=== PATIENT | male | born 1970 | race Caucasian/White ===

== ENCOUNTER → 2019-01-31 23:40 | Outpatient (CLI) | payer OTHER, SELFPAY ==
[2019-01-31 19:37] VITALS: BMI 30.1
[2019-02-01 00:08] LABS: Absolute Lymphocyte Count 3.53 X10^3/ul (0.83-4.51); Absolute Neutrophil Count 4.8 X10^3/uL (2.0-7.7); Basophil# 0.04 X10^3/uL; Basophil% 0.4 % (0-1); Eosinophil# 0.33 X10^3/uL; Eosinophils% 3.4 % (0-5); Hematocrit 45.5 % (40-54); Hemoglobin 15.7 g/dl (13.0-16.5); Lymphocyte # 3.53 X10^3/ul (4.0); Lymphocyte % 36.8 % (19-41); Mean Corp Hgb Conc 34.5 g/gl (32-36); Mean Corpuscular Hgb 29.3 pg (27.0-32.0); Mean Platelet Vol. 10.2 fl (6.2-12.0); Monocyte% 9.4 % (0-10); Neutrophil # 4.76 X10^3/uL (2.7-7.7); Neutrophil % 49.8 % (47-70); Platelet Count 404 K/mm3 (150-450); RBC Distribution Width CV 12.7 % (11.6-14.6); Red Blood Count 5.35 M/mm3 (4.6-6.2); White Blood Count 9.6 K/mm3 (4.4-11.0)
[2019-02-01 00:09] LABS: POSITIVE COUNT NO; POSITIVE DIFFERENTIAL NO; POSITIVE MORPHOLOGY NO
[2019-02-01 00:25] LABS: ALB/GLOB Ratio 1.3 RATIO (0.9-2.4); AST(SGOT) 33 U/L (15-37); Alanine Aminotransfer ALT/SGPT 51 U/L (16-61); Albumin, Serum 4.6 g/dL (3.2-5.0); Alkaline Phosphatase 61 U/L (45-117); Anion Gap 7 (5-15); BUN 13 mg/dL (7-18); BUN/Creat Ratio 11.8 RATIO (10-20); Calcium,Total 8.9 mg/dL (8.5-10.1); Chloride 102 mmol/L (98-107); Cholesterol 207 mg/dL (200); EST Glomerular Filtration Rate 76 mL/min (>60); Est Glom Filt Rate - Afr Amer 92 mL/min (>60); Globulin 3.5 g/dL (2.2-4.2); Glucose 88 mg/dL (74-106); High Density Lipoprotein 29 mg/dL; Protein, Total 8.1 g/dL (6.4-8.2); Sodium Level 138 mmol/L (136-145); Triglycerides 350 mg/dL; Very Low Density Lipoprotein 70 mg/dL (5-40)
== END ==
PROVIDERS: Visit Provider Nurse Practitioner
DX: I10 Essential (primary) hypertension (principal)
CPT/HCPCS: 80053; 80061; 85025

== ENCOUNTER → 2020-02-06 21:37 | Outpatient (CLI) | payer OTHER, SELFPAY ==
[2020-02-06 18:53] VITALS: BMI 30.2
[2020-02-06 21:49] LABS: Absolute Neutrophil Count 5.1 X10^3/uL (2.0-7.7); Basophil# 0.06 X10^3/uL; Basophil% 0.6 % (0-1); Eosinophil# 0.27 X10^3/uL; Eosinophils% 2.7 % (0-5); Hematocrit 45.1 % (40-54); Hemoglobin 14.9 g/dL (13.0-16.5); Mean Corpuscular Hgb 29.5 pg (27.0-32.0); Mean Corpuscular Volume 89.3 fL (80-94); Mean Platelet Vol. 9.9 fl (6.2-12.0); Monocyte# 0.83 X10^3/uL; Monocyte% 8.3 % (0-10); NRBC Flagged by Analyzer 0 % (0-5); Neutrophil # 5.11 X10^3/uL (2.7-7.7); Neutrophil % 51.2 % (47-70); Platelet Count 478 K/mm3 (150-450); RBC Distribution Width CV 12.5 % (11.6-14.6); RBC Distribution Width SD 41.1 fl (35.1-43.9); Red Blood Count 5.05 M/mm3 (4.6-6.2)
[2020-02-06 22:08] LABS: ALB/GLOB Ratio 1.4 RATIO (0.9-2.4); AST(SGOT) 28 U/L (15-37); Alanine Aminotransfer ALT/SGPT 62 U/L (16-61); Albumin, Serum 4.6 g/dL (3.2-5.0); Alkaline Phosphatase 62 U/L (45-117); Anion Gap 7 (5-15); BUN 11 mg/dL (7-18); BUN/Creat Ratio 9.9 RATIO (10-20); Calcium,Total 9.2 mg/dL (8.5-10.1); Chloride 104 mmol/L (98-107); Cholesterol 208 mg/dL (200); Creatinine, Serum 1.11 mg/dL (0.70-1.30); EST Glomerular Filtration Rate 75 mL/min (>60); Est Glom Filt Rate - Afr Amer 91 mL/min (>60); Globulin 3.4 g/dL (2.2-4.2); Glucose 96 mg/dL (74-106); High Density Lipoprotein 28 mg/dL; Sodium Level 139 mmol/L (136-145); Triglycerides 316 mg/dL; Very Low Density Lipoprotein 63 mg/dL (5-40)
== END ==
PROVIDERS: Visit Provider Nurse Practitioner
DX: I10 Essential (primary) hypertension (principal); E78.1 Pure hyperglyceridemia
CPT/HCPCS: 80053; 80061; 85025

== ENCOUNTER → 2021-02-03 22:07 | Outpatient (CLI) | payer OTHER, SELFPAY ==
[2021-02-03 17:37] VITALS: BMI 30.5
[2021-02-03 22:15] LABS: Absolute Lymphocyte Count 3.21 X10^3/uL (0.83-4.51); Absolute Neutrophil Count 5.8 X10^3/uL (2.0-7.7); Basophil# 0.09 X10^3/uL; Basophil% 0.9 % (0-1); Eosinophil# 0.41 X10^3/uL; Eosinophils% 3.9 % (0-5); Hematocrit 43.5 % (40-54); Hemoglobin 14.3 g/dL (13.0-16.5); Lymphocyte # 3.21 X10^3/ul (0.83-4.51); Lymphocyte % 30.9 % (19-41); Mean Corp Hgb Conc 32.9 g/dL (32-36); Mean Corpuscular Volume 88.2 fL (80-94); Monocyte# 0.84 X10^3/uL; Monocyte% 8.1 % (0-10); NRBC Flagged by Analyzer 0 % (0-5); Neutrophil # 5.81 X10^3/uL (2.7-7.7); Neutrophil % 55.9 % (47-70); Platelet Count 484 K/mm3 (150-450); RBC Distribution Width CV 12.7 % (11.6-14.6); RBC Distribution Width SD 41.3 fl (35.1-43.9); Red Blood Count 4.93 M/mm3 (4.6-6.2); White Blood Count 10.4 K/mm3 (4.4-11.0)
[2021-02-03 22:40] LABS: ALB/GLOB Ratio 1.2 RATIO (0.9-2.4); AST(SGOT) 31 U/L (15-37); Alanine Aminotransfer ALT/SGPT 41 U/L (16-61); Albumin, Serum 4.3 g/dL (3.2-5.0); Alkaline Phosphatase 68 U/L (45-117); Anion Gap 8 (5-15); BUN 16 mg/dL (7-18); BUN/Creat Ratio 13.9 RATIO (10-20); Chloride 104 mmol/L (98-107); Cholesterol 183 mg/dL (200); Creatinine, Serum 1.15 mg/dL (0.70-1.30); EST Glomerular Filtration Rate 72 mL/min (>60); Est Glom Filt Rate - Afr Amer 87 mL/min (>60); Globulin 3.6 g/dL (2.2-4.2); Glucose 85 mg/dL (74-106); High Density Lipoprotein 29 mg/dL; Protein, Total 7.9 g/dL (6.4-8.2); Sodium Level 139 mmol/L (136-145); Triglycerides 274 mg/dL; Very Low Density Lipoprotein 55 mg/dL (5-40)
== END ==
PROVIDERS: PCP Nurse Practitioner; Referring Provider Nurse Practitioner; Visit Provider Nurse Practitioner
DX: E78.1 Pure hyperglyceridemia (principal); I10 Essential (primary) hypertension
CPT/HCPCS: 80053; 80061; 85025

== ENCOUNTER → 2022-01-26 | Outpatient (CLI) | payer OTHER, SELFPAY ==
[2022-01-26 22:19] LABS: Absolute Lymphocyte Count 2.81 X10^3/uL (0.83-4.51); Absolute Neutrophil Count 4.5 X10^3/uL (2.0-7.7); Basophil# 0.04 X10^3/uL; Basophil% 0.5 % (0-1); Eosinophil# 0.28 X10^3/uL; Eosinophils% 3.3 % (0-5); Hematocrit 43.5 % (40-54); Lymphocyte # 2.81 X10^3/ul (0.83-4.51); Lymphocyte % 33.6 % (19-41); Mean Corp Hgb Conc 34.5 g/dL (32-36); Mean Corpuscular Hgb 29.8 pg (27.0-32.0); Mean Corpuscular Volume 86.5 fL (80-94); Mean Platelet Vol. 10.1 fl (6.2-12.0); Monocyte# 0.68 X10^3/uL; Monocyte% 8.1 % (0-10); NRBC Flagged by Analyzer 0 % (0-5); Neutrophil # 4.53 X10^3/uL (2.7-7.7); Neutrophil % 54.1 % (47-70); Platelet Count 403 K/mm3 (150-450); RBC Distribution Width CV 12.4 % (11.6-14.6); RBC Distribution Width SD 38.9 fl (35.1-43.9); Red Blood Count 5.03 M/mm3 (4.6-6.2); White Blood Count 8.4 K/mm3 (4.4-11.0)
[2022-01-26 22:34] LABS: ALB/GLOB Ratio 1.2 RATIO (0.9-2.4); AST(SGOT) 27 U/L (15-37); Alanine Aminotransfer ALT/SGPT 48 U/L (16-61); Albumin, Serum 4.3 g/dL (3.2-5.0); Alkaline Phosphatase 53 U/L (45-117); Anion Gap 7 (5-15); BUN 9 mg/dL (7-18); BUN/Creat Ratio 8.4 RATIO (10-20); Chloride 107 mmol/L (98-107); Cholesterol 196 mg/dL (200); Creatinine, Serum 1.07 mg/dL (0.70-1.30); EST Glomerular Filtration Rate 78 mL/min (>60); Est Glom Filt Rate - Afr Amer 94 mL/min (>60); Globulin 3.5 g/dL (2.2-4.2); Glucose 96 mg/dL (74-106); High Density Lipoprotein 32 mg/dL; Potassium 3.8 mmol/L (3.5-5.1); Protein, Total 7.8 g/dL (6.4-8.2); Sodium Level 138 mmol/L (136-145); Triglycerides 179 mg/dL; Very Low Density Lipoprotein 36 mg/dL (5-40)
== END | disposition home or self-care (01) ==
PROVIDERS: PCP Nurse Practitioner; Referring Provider Nurse Practitioner; Visit Provider Nurse Practitioner
DX: E78.1 Pure hyperglyceridemia (principal)
CPT/HCPCS: 80053; 80061; 85025

== ENCOUNTER → 2023-04-12 | Outpatient (CLI) | payer OTHER, SELFPAY ==
[2023-04-12 21:06] LABS: Absolute Lymphocyte Count 2.87 X10^3/uL (0.83-4.51); Absolute Neutrophil Count 5.1 X10^3/uL (2.0-7.7); Basophil# 0.04 X10^3/uL; Basophil% 0.4 % (0-1); Eosinophil# 0.41 X10^3/uL; Eosinophils% 4.5 % (0-5); Hematocrit 43.9 % (40-54); Hemoglobin 14.8 g/dL (13.0-16.5); Lymphocyte # 2.87 X10^3/ul (0.83-4.51); Lymphocyte % 31.7 % (19-41); Mean Corp Hgb Conc 33.7 g/dL (32-36); Mean Corpuscular Hgb 29.7 pg (27.0-32.0); Mean Platelet Vol. 9.8 fl (6.2-12.0); Monocyte# 0.65 X10^3/uL; Monocyte% 7.2 % (0-10); NRBC Flagged by Analyzer 0 % (0-5); Neutrophil # 5.05 X10^3/uL (2.7-7.7); Platelet Count 393 K/mm3 (150-450); RBC Distribution Width CV 12.2 % (11.6-14.6); RBC Distribution Width SD 39.1 fl (35.1-43.9); Red Blood Count 4.99 M/mm3 (4.6-6.2)
[2023-04-12 21:32] LABS: ALB/GLOB Ratio 1.2 RATIO (0.9-2.4); AST(SGOT) 21 U/L (15-37); Alanine Aminotransfer ALT/SGPT 38 U/L (16-61); Albumin, Serum 4.2 g/dL (3.2-5.0); Alkaline Phosphatase 51 U/L (45-117); Anion Gap 6 (5-15); BUN 11 mg/dL (7-18); BUN/Creat Ratio 11.6 RATIO (10-20); CRP, High Sensitivity Cardiac 0.31 mg/L; Calcium,Total 8.8 mg/dL (8.5-10.1); Chloride 105 mmol/L (98-107); Cholesterol 90 mg/dL (200); Creatinine, Serum 0.94 mg/dL (0.70-1.30); EST Glomerular Filtration Rate 89 mL/min (>60); Est Glom Filt Rate - Afr Amer 108 mL/min (>60); Globulin 3.4 g/dL (2.2-4.2); Glucose 104 mg/dL (74-106); High Density Lipoprotein 33 mg/dL; PSA,Total - Annual Screen 0.87 ng/mL (0.00-4.00); Potassium 3.7 mmol/L (3.5-5.1); Protein, Total 7.6 g/dL (6.4-8.2); Sodium Level 137 mmol/L (136-145); Thyroid Stim Hormone (TSH) 2.36 uIU/mL (0.358-3.74); Triglycerides 107 mg/dL; Very Low Density Lipoprotein 21 mg/dL (5-40)
== END | disposition home or self-care (01) ==
PROVIDERS: PCP Nurse Practitioner; Visit Provider Nurse Practitioner
DX: I63.9 Cerebral infarction, unspecified (principal); E78.1 Pure hyperglyceridemia; I10 Essential (primary) hypertension
CPT/HCPCS: 80053; 80061; 84153; 84443; 85025; 86141; G0103

== ENCOUNTER → 2024-06-04 | Outpatient (CLI) | payer OTHER, SELFPAY ==
[2024-06-04 21:48] LABS: Absolute Lymphocyte Count 3.06 X10^3/uL (0.83-4.51); Absolute Neutrophil Count 4.8 X10^3/uL (2.0-7.7); Basophil# 0.07 X10^3/uL; Basophil% 0.8 % (0-1); Eosinophil# 0.53 X10^3/uL; Eosinophils% 5.8 % (0-5); Hematocrit 45.2 % (40-54); Hemoglobin 15.1 g/dL (13.0-16.5); Lymphocyte # 3.06 X10^3/ul (0.83-4.51); Lymphocyte % 33.3 % (19-41); Mean Corp Hgb Conc 33.4 g/dL (32-36); Mean Corpuscular Hgb 29.1 pg (27.0-32.0); Mean Corpuscular Volume 87.1 fL (80-94); Mean Platelet Vol. 10.2 fl (6.2-12.0); Monocyte# 0.69 X10^3/uL; Monocyte% 7.5 % (0-10); NRBC Flagged by Analyzer 0 % (0-5); Neutrophil # 4.79 X10^3/uL (2.7-7.7); Neutrophil % 52.1 % (47-70); Platelet Count 386 K/mm3 (150-450); RBC Distribution Width CV 12.5 % (11.6-14.6); RBC Distribution Width SD 39.8 fl (35.1-43.9); Red Blood Count 5.19 M/mm3 (4.6-6.2); White Blood Count 9.2 K/mm3 (4.4-11.0)
[2024-06-04 22:16] LABS: ALB/GLOB Ratio 1.4 RATIO (0.9-2.4); AST(SGOT) 20 U/L (15-37); Alanine Aminotransfer ALT/SGPT 37 U/L (16-61); Albumin, Serum 4.2 g/dL (3.2-5.0); Alkaline Phosphatase 56 U/L (45-117); Anion Gap 10 (5-15); BUN 11 mg/dL (7-18); BUN/Creat Ratio 10.9 RATIO (10-20); Calcium,Total 9.1 mg/dL (8.5-10.1); Chloride 105 mmol/L (98-107); Cholesterol 225 mg/dL (200); Creatinine, Serum 1.01 mg/dL (0.70-1.30); EST Glomerular Filtration Rate 82 mL/min (>60); Est Glom Filt Rate - Afr Amer 100 mL/min (>60); Globulin 3.1 g/dL (2.2-4.2); Glucose 119 mg/dL (74-106); High Density Lipoprotein 40 mg/dL; PSA,Total - Annual Screen 1.03 ng/mL (0.00-4.00); Potassium 3.8 mmol/L (3.5-5.1); Protein, Total 7.3 g/dL (6.4-8.2); Sodium Level 138 mmol/L (136-145); Triglycerides 197 mg/dL; Very Low Density Lipoprotein 39 mg/dL (5-40)
== END | disposition home or self-care (01) ==
PROVIDERS: PCP Nurse Practitioner; Referring Provider Nurse Practitioner; Visit Provider Nurse Practitioner
DX: Z00.00 Encounter for general adult medical examination without abnormal findings (principal)
CPT/HCPCS: 80053; 80061; 84153; 85025; G0103

== ENCOUNTER → 2025-05-21 | Outpatient (CLI) | payer OTHER, SELFPAY ==
--- OUTSIDE RECORDS SUMMARY | 2025-05-21 21:54 | XMS RPT_ITS | CCD ---
Author Organization [facility] Care Team Providers Care Batch Or Continuous Still Operator Name Role Phone Moisés WEDDING COORDINATOR.Marianne VALADEZ Primary Care Provide r Lissa Mirza DO Unavailable [phone] Moisés WEDDING COORDINATOR.Marianne VALADEZ Unavailable [phone] Victoria Piedra RN Unavailable MARIANNE CURIEL Primary Care Unavailable JORDI FITZGERALD Consulting Unavailabl e LISSA MIRZA Attending Unavailable LISSA MIRZA Admitting Unavailable Knupp PT, Ellis Unavailable Knupp PT, Ellis Unavailable MARIANNE CURIEL Primary Care Unavailable RENY MATOS Attending Unavailable CAROLYN MARTINO Referring Unavailable Marianne Curiel Primary Care Provider [phone] NICANOR PENNINGTON Referring Unavailable NICANOR PENNINGTON Attending Unavailable MARIANNE CURIEL Primary Care Unavailable TED WEBSTER, OLIVIA Attending Unavail able MARIANNE CURIEL Primary Care Unavailable Moisés INTEGRITY MANAGER, Marianne Referring Unavailable Moisés INTEGRITY MANAGER, Marianne Attending Unavailable Moisés INTEGRITY MANAGER, Marianne Primary Care Unavailable Medications Current Medications Medication Drug Class(es) Dates Sig (Normalized) Sig (Original) aspirin 81 mg delayed release oral tablet (19 sources) Platelet Aggregation Inhibitor, Nonsteroidal Anti-inflammatory Drug Start: 04-12-2023 take 81 mg by mouth once daily Aspirin Active 81 MG PO DAILY April 12, 2023 12:00am Start: 03-07-2023 take 1 tablet by miryam th once daily aspirin 81 mg chewable tablet 1 tablet by ORAL/FEEDING TUBE route once daily. 30 tablet 0 03/07/2023 Active Start: 03-07-2023 take 1 tablet by miryam th once daily aspirin 81 mg chewable tablet 1 tablet by ORAL/FEEDING TUBE route once daily. 30 tablet 0 03/07/2023 Active Comment on above: 1 tablet by ORAL/FEE DING TUBE route once daily. clopidogrel 75 mg oral tablet (16 sources) P2Y12 Platelet Inhibitor Start: 023 End: take 75 mg by mouth once daily Clopidogrel Active 75 MG PO DAILY April 12, 2023 12:00am Comment on above: Take 1 tablet by miryam th once daily for 20 doses. hydroCHLOROthiazide 12.5 mg / lisinopril 20 mg oral tablet (20 sources) Thiazide Diuretic, Angiotensin Converting Enzyme Inhibitor Start: 018 End: take 1 tablet by mouth once daily Lisinopril-Hydroch lorothiazide Active 1 TABLET PO daily 90 April 12, 2023 6:57pm Start: 06-15-2015 take 1 tablet by miryam th once daily lisinopril-hydroCHLOROthiazide (ZESTORET IC) 20-12.5 mg per tablet Take 1 tablet by mouth once daily. 0 06/15/2015 Active Comment on above: Take 1 tablet by miryam th once daily. Wapiti-3 Fatty Acids (Fish Oil Concentrate) 1,000 mg capsule (1 source) Start: 02-01-2018 Wapiti-3 Fatty Acids (Fish Oil Concentrate) 1,000 mg capsule Active 2000 MG PO daily February 01, 2018 12:00am Completed/Discontinued Medications Medication Drug Class(es) Dates Sig (Normalized) Sig (Original) atorvastatin 40 mg oral tablet (19 sources) HMG-CoA Reductase Inhibitor Start: 03-06-2023 take 1 tablet by mouth once daily at bedtime atorvastatin (LIPITOR) 40 mg tablet Take 1 tablet by mouth daily at bedtime. 30 tablet 0 03/06/2023 Active Comment on above: Take 1 tablet by miryam th daily at bedtime. Problems Active Problems Problem Classification Problem Date Documented Date Episodic/Chronic Acute cerebrovascular disease (20 sources) Acute stroke; Translations: [Cerebral infarction, unspecified] Onset: 03-05-2023 03-05-2023 Chronic Cardiac dysrhythmias (19 sources) Paroxysmal supraventricular tachycardia; Translations: [Supraventricular tachycardia] Onset: 03-05-2023 03-05-2023 Chronic Disorders of lipid metabolism (1 source) Hypertriglyceridemia; Translations: [Pure hyperglyceridemia] 02-01-2018 Chronic Essential hypertension (20 sources) Hypertensive disorder; Translations: [Essential (primary) hypertension] Onset: 03-05-2023 03-05-2023 Chronic Malaise and fatigue (1 source) Weakness; Translations: [Right sided weakness] Onset: 03-05-2023 Episodic Other connective tissue disease (1 source) Facial weakness; Translations: [Facial droop] Onset: 03-05-2023 Episodic Other nervous system disorders (1 source) Slurred speech; Translations: [Slurred speech] Onset: 03-05-2023 Episodic Past or Other Problems Problem Classification Problem Date Documented Date Episodic/Chronic Other non-traumatic joint disorders (5 sources) Pain in right shoulder; Translations: [Pain in joint, shoulder region] Onset: 06-26-2023 06-26-2023 Episodic Spondylosis; intervertebral disc disorders; other back problems (5 sources) Neck pain; Translations: [Cervicalgia] Onset: 06-26-2023 06-26-2023 Episodic Spondylosis; intervertebral disc disorders; other back problems (1 source) Spondylosis; intervertebral disc disorders; other back problems 03-25-2022 Results Test Name Value Interpretation Reference Range Facility CBC W/Diff, Automatedon 10-0 Absolute Lymph 3.06 X10 3/uL Normal 0.83-4.51 [facility] Comment on above: Performed By: #### L 501.9910, L500.4050, L500.4100, L100.0100 #### [facility] [address] [place], [address] Absolute Neut 4.8 X10 3/uL Normal 2.0-7.7 [facility] Comment on above: Performed By: #### L 501.9910, L500.4050, L500.4100, L100.0100 #### [facility] [address] [place], [address] Basophils/100 WBC (Bld) 0.8 % Normal 0-1 [facility] Comment on above: Performed By: #### L 501.9910, L500.4050, L500.4100, L100.0100 #### [facility] [address] [place], [address] Eosinophils/100 WBC (Bld) 5.8 % High 0-5 [facility] Comment on above: Performed By: #### L 501.9910, L500.4050, L500.4100, L100.0100 #### [facility] [address] [place], [address] Erythrocyte distribution width (RBC) [Ratio] 12.5 % Normal 11.6-14.6 [facility] Comment on above: Performed By: #### L 501.9910, L500.4050, L500.4100, L100.0100 #### [facility] [address] [place], [address] Hematocrit (Bld) [Volume fraction] 45.2 % Normal 40-54 [facility] Comment on above: Performed By: #### L 501.9910, L500.4050, L500.4100, L100.0100 #### [facility] [address] [place], [address] Hemoglobin (Bld) [Mass/Vol] 15.1 g/dL Normal 13.0-16.5 [facility] Comment on above: Performed By: #### L 501.9910, L500.4050, L500.4100, L100.0100 #### [facility] [address] [place], [address] IG% 0.500 Normal 0.0-0.9 [facility] Comment on above: Result Comment: IG% - Immature Granulocytes (promyelocytes, myelocytes and metamyelocytes) > 1% indicates that a LEFT SHIFT is Present. Performed By: #### L 501.9910, L500.4050, L500.4100, L100.0100 #### [facility] [address] [place], [address] Lymphocytes/100 WBC (Bld) 33.3 % Normal 19-41 [facility] Comment on above: Performed By: #### L 501.9910, L500.4050, L500.4100, L100.0100 #### [facility] [address] [place], [address] MCH (RBC) [Entitic mass] 29.1 pg Normal 27.0-32.0 [facility] Comment on above: Performed By: #### L 501.9910, L500.4050, L500.4100, L100.0100 #### [facility] [address] [place], [address] MCHC (RBC) [Mass/Vol] 33.4 g/dL Normal 32-36 [facility] Comment on above: Performed By: #### L 501.9910, L500.4050, L500.4100, L100.0100 #### [facility] [address] [place], [address] MCV (RBC) [Entitic vol] 87.1 fL Normal 80-94 [facility] Comment on above: Performed By: #### L 501.9910, L500.4050, L500.4100, L100.0100 #### [facility] [address] [place], [address] Monocytes/100 WBC (Bld) 7.5 % Normal 0-10 [facility] Comment on above: Performed By: #### L 501.9910, L500.4050, L500.4100, L100.0100 #### [facility] [address] [place], [address] Neutrophils/100 WBC (Bld) 52.1 % Normal 47-70 [facility] Comment on above: Performed By: #### L 501.9910, L500.4050, L500.4100, L100.0100 #### [facility] [address] [place], [address] Nucleated RBC (Bld) [#/Vol] 0 10*3/uL Normal 0-5 [facility] Comment on above: Performed By: #### L 501.9910, L500.4050, L500.4100, L100.0100 #### [facility] [address] [place], [address] Platelet mean volume (Bld) [Entitic vol] 10.2 fL Normal 6.2-12.0 [facility] Comment on above: Performed By: #### L 501.9910, L500.4050, L500.4100, L100.0100 #### [facility] [address] [place], [address] Platelets (Bld) [#/Vol] 386 10*3/uL Normal 150-450 [facility] Comment on above: Performed By: #### L 501.9910, L500.4050, L500.4100, L100.0100 #### [facility] [address] [place], [address] RBC (Bld) [#/Vol] 5.19 10*6/uL Normal 4.6-6.2 [facility] Comment on above: Performed By: #### L 501.9910, L500.4050, L500.4100, L100.0100 #### [facility] [address] [place], [address] RDW SD 39.8 fl Normal 35.1-43.9 [facility] Comment on above: Performed By: #### L 501.9910, L500.4050, L500.4100, L100.0100 #### [facility] [address] [place], [address] WBC (Bld) [#/Vol] 9.2 10*3/uL Normal 4.4-11.0 [facility] Comment on above: Performed By: #### L 501.9910, L500.4050, L500.4100, L100.0100 #### [facility] [address], [address] Comprehensive Metabolic Prof ilon 06-04-2024 Albumin [Mass/Vol] 4.2 g/dL Normal 3.2-5.0 [facility] Comment on above: Performed By: #### L 501.9910, L500.4050, L500.4100, L100.0100 #### [facility] [address] [place], [address] Albumin/Globulin [Mass ratio] 1.4 {ratio} Normal 0.9-2.4 [facility] Comment on above: Performed By: #### L 501.9910, L500.4050, L500.4100, L100.0100 #### [facility] [address] [place], [address] ALK P 56 U/L Normal 45-117 [facility] Comment on above: Performed By: #### L 501.9910, L500.4050, L500.4100, L100.0100 #### [facility] [address] [place], [address] ALT [Catalytic activity/Vol] 37 U/L Normal 16-61 [facility] Comment on above: Performed By: #### L 501.9910, L500.4050, L500.4100, L100.0100 #### [facility] [address] [place], [address] AST [Catalytic activity/Vol] 20 U/L Normal 15-37 [facility] Comment on above: Performed By: #### L 501.9910, L500.4050, L500.4100, L100.0100 #### [facility] [address] [place], [address] Bilirubin [Mass/Vol] 0.50 mg/dL Normal 0.20-1.00 [facility] Comment on above: Result Comment: For patients on eltrombopag therapy, use of Dimension [place] TBIL is not recommended. Performed By: #### L 501.9910, L500.4050, L500.4100, L100.0100 #### [facility] [address], [address] BUN/CRE 10.9 RATIO Normal 10-20 [facility] Comment on above: Performed By: #### L 501.9910, L500.4050, L500.4100, L100.0100 #### [facility] [address] [place], [address] CA,Total 9.1 mg/dL Normal 8.5-10.1 [facility] Comment on above: Performed By: #### L 501.9910, L500.4050, L500.4100, L100.0100 #### [facility] [address] [place], [address] Chloride [Moles/Vol] 105 mmol/L Normal 98-107 [facility] Comment on above: Performed By: #### L 501.9910, L500.4050, L500.4100, L100.0100 #### [facility] [address], [address] CO2 [Moles/Vol] 23.0 mmol/L Normal 21.0-32.0 [facility] Comment on above: Performed By: #### L 501.9910, L500.4050, L500.4100, L100.0100 #### [facility] [address] [place], [address] Creatinine [Mass/Vol] 1.01 mg/dL Normal 0.70-1.30 [facility] Comment on above: Result Comment: The validity of the calculated GFR GFRAA in patients over 70 years has not been determined. Clinical correlation is essential. Performed By: #### L 501.9910, L500.4050, L500.4100, L100.0100 #### [facility] [address] [place], [address] EST GFR - AA 100 mL/min Normal >60 [facility] Comment on above: Result Comment: Afri can Guamanian GFR Calc Performed By: #### L 501.9910, L500.4050, L500.4100, L100.0100 #### [facility] [address] [place], [address] GAP 10 Normal 5-15 [facility] Comment on above: Performed By: #### L 501.9910, L500.4050, L500.4100, L100.0100 #### [facility] [address] [place], [address] GFR/1.73 sq M.predicted among non-blacks MDRD (S/P/Bld) [Vol rate/Area] 82 mL/min/{1.73_m2} Normal >60 [facility] Comment on above: Result Comment: Non- GFR Calc Performed By: #### L 501.9910, L500.4050, L500.4100, L100.0100 #### [facility] [address] [place], [address] Globulin (S) [Mass/Vol] 3.1 g/dL Normal 2.2-4.2 [facility] Comment on above: Performed By: #### L 501.9910, L500.4050, L500.4100, L100.0100 #### [facility] [address] [place], [address] Glucose [Mass/Vol] 119 mg/dL High 74-106 [facility] Comment on above: Result Comment: Fast ing Glucose result from 100 to 125 mg/dL suggests IMPAIRED HOMEOSTASIS per A.D.A. criteria. Performed By: #### L 501.9910, L500.4050, L500.4100, L100.0100 #### [facility] [address] [place], [address] Potassium [Moles/Vol] 3.8 mmol/L Normal 3.5-5.1 [facility] Comment on above: Performed By: #### L 501.9910, L500.4050, L500.4100, L100.0100 #### [facility] [address] [place], [address] Sodium [Moles/Vol] 138 mmol/L Normal 136-145 [facility] Comment on above: Performed By: #### L 501.9910, L500.4050, L500.4100, L100.0100 #### [facility] [address] [place], [address] T PROT 7.3 g/dL Normal 6.4-8.2 [facility] Comment on above: Performed By: #### L 501.9910, L500.4050, L500.4100, L100.0100 #### [facility] [address] [place], [address] Urea nitrogen [Mass/Vol] 11 mg/dL Normal 7-18 [facility] Comment on above: Performed By: #### L 501.9910, L500.4050, L500.4100, L100.0100 #### [facility] [address] [place], [address] Lipid Profileon 06-04-2024 Cholesterol [Mass/Vol] 225 mg/dL High 200 [facility] Comment on above: Result Comment: <200 mg/dL Desirable 200-240 mg/dL Borderline >240 mg/dL High Risk Performed By: #### L 501.9910, L500.4050, L500.4100, L100.0100 #### [facility] [address] [place], [address] Cholesterol in HDL [Mass/Vol] 40 mg/dL Normal [facility] Comment on above: Result Comment: The drugs N-Acetylcysteine and Metamizole may falsely depress this assay. Reference Range HDL <40 mg/dL Low HDL Cholesterol HDL >or= 60 mg/dL High HDL Cholesterol Performed By: #### L 501.9910, L500.4050, L500.4100, L100.0100 #### [facility] [address] [place], [address] Cholesterol in LDL [Mass/Vol] 146 mg/dL High 0-130 [facility] Comment on above: Performed By: #### L 501.9910, L500.4050, L500.4100, L100.0100 #### [facility] [address] [place], [address] Cholesterol in VLDL [Mass/Vol] 39 mg/dL Normal 5-40 [facility] Comment on above: Performed By: #### L 501.9910, L500.4050, L500.4100, L100.0100 #### [facility] [address] [place], [address] Triglyceride [Mass/Vol] 197 mg/dL Normal [facility] Comment on above: Result Comment: The drugs N-Acetylcysteine and Metamizole may falsely depress this assay. Serum Triglycerides Reference Interval Normal <150 mg/dL Borderline high 150 - 199 mg/dL High 200 - 499 mg/dL Very High > or = 500 mg/dL Performed By: #### L 501.9910, L500.4050, L500.4100, L100.0100 #### [facility] [address] [place], [address] PSA,Total - Annual Screenon 06-04-2024 PSA,TOT SCREEN 1.03 ng/mL Normal 0.00-4.00 [facility] Comment on above: Result Comment: This test was performed using the TPSA assay method for the [employer] chemistry system. Values obtained with different assay methods cannot be used interchangably. When changing PSA assays in the course of monitoring a patient, additional sequential testing should be carried out to confirm baseline values. Performed By: #### L 501.9910, L500.4050, L500.4100, L100.0100 #### [facility] [address] [place], [address] Phone Msgon 05-24-2024 Phone Msg Entered by ANDREIA ANDINO CNP on May 24, 2024 16:08:10 EDT From: ANDREIA ANDINO CNP To: [id number] Sent: 05/24/2024 16:08:10 EDT Subject: Medication Management Documented Complete:atorvastatin (atorvastatin 40 mg oral tablet) Responsible Provider: Lissa Mirza Signed by ANDREIA ANDINO CNP 05/24/2024 16:08:00 EDT Submitted: Complete:atorvastatin (atorvastatin 40 mg oral tablet) Signed by ANDREIA ANDINO CNP 05/24/2024 16:08:00 EDT Approved atorvastatin (atorvastatin 40 mg tablet) TAKE 1 TABLET BY MOUTH ONCE DAILY Qty: 90 tabs Days Supply: 90 Refills: 2 Substitutions Allowed Route To Pharmacy - [id number] Note from Pharmacy: This prescription was filled on 02/29/2024. Any refills authorized will be placed on file. From: [id number] To: ANDREIA ANDINO CNP Sent: May 19, 2024 8:02:16 AM EDT Subject: Medication Management Due: May 19, 2024 11:36:16 AM EDT On Hold Pending Signature Drug: atorvastatin (atorvastatin 40 mg oral tablet), TAKE 1 TABLET BY MOUTH ONCE DAILY Quantity: 90 tabs Days Supply: 90 Refills: 1 Substitutions Allowed Notes from Pharmacy: Dispensed Drug: atorvastatin (atorvastatin 40 mg oral tablet), TAKE 1 TABLET BY MOUTH ONCE DAILY Quantity: 90 tabs Days Supply: 90 Refills: 2 Substitutions Allowed Notes from Pharmacy: This prescription was filled on 02/29/2024. Any refills authorized will be placed on file. Normal [facility] XR Cervical spine 4 or 5 Vie wson 06-27-2023 No acute fracture or traumatic subluxation identified. Spondylosis and spondylolisthesis at C6-C7. Report Dictated on Electronically Signed By: Chago Joshua MD Electronically Signed Date/Time: 06/27/2023 1:57 AM EDT [facility] Patient Name: IRON CONDE : 1970 Exam Date/Time: 06/26/2023 11:25 Procedure: XR CERVICAL SPINE COMPLETE 4-5 VIEWS Ordering Provider: PENNINGTON MARK Reason For Exam: M54.2 EXAMINATION: XR cervical spine. EXAM DATE & TIME: 06/26/2023 11:25 AM EDT INDICATION: M54.2 ADDITIONAL INFORMATION: 53-year-old male with cervicalgia presents for evaluation COMPARISON: None TECHNIQUE: AP, oblique, lateral and odontoid views of the cervical spine were obtained. FINDINGS: No acute fracture or traumatic subluxation is identified. Normal vertebral body height is seen. There is grade 1 retrolisthesis of C6 on C7. Degenerative disc disease is also seen as well as degenerative endplate spurring at C6-C7. Odontoid view is unremarkable. No focal soft tissue abnormality is demonstrated. [facility] [email or web address] [facility] hCago Joshua MD - 06/27/2023 Patient Name: IRON CONDE : 1970 Exam Date/Time: 06/26/2023 11:25 Procedure: XR CERVICAL SPINE COMPLETE 4-5 VIEWS Ordering Provider: PENNINGTON MARK Reason For Exam: M54.2 EXAMINATION: XR cervical spine. EXAM DATE & TIME: 06/26/2023 11:25 AM EDT INDICATION: M54.2 ADDITIONAL INFORMATION: 53-year-old male with cervicalgia presents for evaluation COMPARISON: None TECHNIQUE: AP, oblique, lateral and odontoid views of the cervical spine were obtained. FINDINGS: No acute fracture or traumatic subluxation is identified. Normal vertebral body height is seen. There is grade 1 retrolisthesis of C6 on C7. Degenerative disc disease is also seen as well as degenerative endplate spurring at C6-C7. Odontoid view is unremarkable. No focal soft tissue abnormality is demonstrated. IMPRESSION: No acute fracture or traumatic subluxation identified. Spondylosis and spondylolisthesis at C6-C7. Report Dictated on Electronically Signed By: Chago Joshua MD Electronically Signed Date/Time: 06/27/2023 1:57 AM EDT [facility] XR Cervical spine 4 or 5 Vie wsOrdered By: Chago Joshua on 06-27-2023 [facility] Work Phone: No Panel Informationon 06-26 Radiology Study observation (narrative) [facility] XR Shoulder - right 2 Viewso n 06-26-2023 No fracture or dislocation of the right shoulder is identified. Mild degenerative changes of the right acromioclavicular and glenohumeral joints. Report Dictated on Electronically Signed By: Yaya Stein MD Electronically Signed Date/Time: 06/26/2023 6:04 PM EDT [facility] Patient Name: IRON CONDE : 1970 Exam Date/Time: 06/26/2023 11:25 Procedure: XR SHOULDER 2+ VIEWS RIGHT Ordering Provider: PENNINGTON MARK Reason For Exam: Right shoulder pain RIGHT SHOULDER CLINICAL INDICATION: Pain Three views of the right shoulder were obtained. COMPARISON: None. FINDINGS: No fracture or dislocation of the right shoulder is identified. There is no abnormal soft tissue swelling. There is degenerative spurring and loss of joint space at the right acromioclavicular and glenohumeral joints. [facility] Yaya Stein MD - 06/26/2023 [facility]ON [facility] : 1970 [id number] Exam Date/Time: 06/26/2023 11:25 Procedure: XR SHOULDER 2+ VIEWS RIGHT Ordering Provider: PENNINGTON MARK Reason For Exam: Right shoulder pain RIGHT SHOULDER CLINICAL INDICATION: Pain Three views of the right shoulder were obtained. COMPARISON: None. FINDINGS: No fracture or dislocation of the right shoulder is identified. There is no abnormal soft tissue swelling. There is degenerative spurring and loss of joint space at the right acromioclavicular and glenohumeral joints. IMPRESSION: No fracture or dislocation of the right shoulder is identified. Mild degenerative changes of the right acromioclavicular and glenohumeral joints. Report Dictated on Electronically Signed By: Yaya Stein MD Electronically Signed Date/Time: 06/26/2023 6:04 PM EDT [facility] XR Shoulder - right 2 ViewsO rdered By: Yaya Stein on 06-26-2023 [employer] Work Phone: [facility] 05-01-2023 [facility] Telephone ([id number]) IRON CONDE ([id number]) 1970 M Date Time Provider Department 05/01/23 RENY MATOS [id number] During your visit today, we recorded the following information about you: Pastora Trinidad 05/01/2023 9:59 AM Signed CV PHONE Name of caller : Pastora Relationship to patient : Spouse/ SignificantOther If not self Will need patient permission to release results or disclose health information with called documented in fyi. Patient identified by Name and Date of . ( Iron Conde, 1970). Yes Number to return call [phone] Reason for Call: Symptoms Call: Symptoms: Swelling and pain in hand, arm and shoulder. Right side Duration: >48 hours Progression: worse Pain level: NA on a scale of 0-10. Type of pain (feels like): NA Frequency: constant Location of pain: Right hand, arm, shoulder swelling and pain. Pharmacy: [facility] [place] [facility] Iron has had the swelling for a couple months, but it seems to be getting worse and now having pain in his shoulder on the right side. Thank you calling [facility] [place]. You will receive a return call within 48 hours ( or 2 business days if close to the weekend). If you feel that this is an urgent issue and needs immediate attention, it is recommended that you contact your primary care provider office or proceed to your nearest Urgent Care Center of Emergency Room ED for evaluation/treatment. Lesley Bolivar RN 05/04/2023 4:06 PM Signed RN attempted to call patient with provided phone number ([phone]) no answer, left voicemail, will attempt to call again Lesley Bolivar RN May 02, 2023 2:56 PM Nathalia Bell 05/03/2023 11:20 AM Signed , Genna is returning call - she is asking if Iron can take Ibuprofen for the pain. Please call Genna at [phone]. Lesley Bolivar RN 05/04/2023 4:07 PM Signed RN called patient with provided phone number. 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 Patient verbalized understanding and willing to comply with plan of care. Patient had no other questions at this time Lesley Bolivar RN May 04, 2023 4:07 PM Allergies As of Date: 05/01/2023 (No Known Allergies) Date Reviewed: 04/14/2023 Reviewed by: Marcela Butts MA - Fully Assessed Reason for Visit: Symptoms [3640] Prescriptions as of 05/11/2023 - aspirin 81 mg chewable tablet 1 tablet by ORAL/FEEDING TUBE route once daily. - atorvastatin (LIPITOR) 40 mg tablet Take 1 tablet by mouth daily at bedtime. - lisinopril-hydroCHLOR Othiazide (ZESTORETIC) 20-12.5 mg per tablet Take 1 tablet by mouth once daily. Problem List As Of Date 05/01/2023 Noted Resolved Acute CVA (cerebrovascular accident) (HCC) [I63*03/05/2023 HTN (hypertension) [I10] 03/05/2023 Paroxysmal SVT (supraventricular tachycardia) (*03/05/2023 Encounter Status:Closed by LESLEY BOLIVAR on 05/04/23 [facility] CNOVon 04-14-2023 CNEMILY Office Visit (GIULIANO ) IRON CONDE ([id number]) 1970 M Date Time Provider Department 04/14/23 9:00 AM RENY MATOS [facility] During your visit today, we recorded the following information about you: Pulse Blood pressure Weight Height 58/minute 160/105 94.3 kg 1.854 m Reny Matos APRN.QUILT STUFFER 04/19/2023 4:04 PM Signed [facility] Established Visit PCP: Marianne Curiel (Sam) [address] [address] CEREBROVASCULAR HISTORY Iron Conde is a 53 year old male who presents for neurologic evaluation following recent hospitalization for acute ischemic stroke (03/05/2023-03/06/2023). Reason for Visit: stroke Date of Last Event: 03/05/2023 History of Event: HOSPITAL COURSE: Iron Conde is a 53 year old male presented with past medical history of Hypertension presented to ED for evaluation of right-sided weakness, dysarthria, balance issues. Per patient and over the phone, Monday evening around 5:30 PM, patient started walking funny after having the back pain and was feeling very tired. Neck morning on Monday at 9 AM, patient started having right-sided pain, right upper and lower extremity weakness, slurring of his words, sleeping a lot and was not talking much. Denies any numbness, tingling, difficulty swallowing, headache or blurry vision. In ED, CT brain showed no acute findings, no evidence of acute infarction, intracranial hemorrhage or intracranial mass lesion. CTA of the head and neck showed no evidence of hemodynamically significant stenosis, intraluminal filling defect, abrupt vessel occlusion, aneurysm or vascular malformation in the intracranial and extracranial arterial vasculature. EKG showed sinus bradycardia with heart rate of 59 with isolated nonspecific T wave inversion in lead III High-sensitivity troponin of 6 and less than 6. CK-MB % within normal limits. Admitted for, Acute Acute left pontine infarction (cerebrovascular accident) (HCC) -NIHSS scale of 7 with mild right facial droop, right arm drift but does not hit the bed, right leg drift, hits the bed, ataxia in 2 limbs, mild to moderate dysarthria, slurring but can be understood -CT brain showed no acute findings, no evidence of acute infarction, intracranial hemorrhage or intracranial mass lesion. -CTA of the head and neck showed no evidence of hemodynamically significant stenosis, intraluminal filling defect, abrupt vessel occlusion, aneurysm or vascular malformation in the intracranial and extracranial arterial vasculature. -MRI brain showed Acute left pontine infarction. No evidence of hemorrhagic transformation. No evidence of midline shift or herniation. -2D echo showed - The left ventricle is normal in size. Left ventricular systolic function is normal. EF = 63 ? 5% (2D biplane) -The right ventricle is normal in size. Right ventricular systolic function is normal. There is no patent foramen ovale as detected by Doppler and saline contrast with valsalva. Agitated saline study is negative for shunt (clip #[phone]) MRI Brain Acute left pontine infarction, etiology unclear per Neurology. Patient was seen by Cardiology and Neurology-Need outpatient 14 day ziopatch. Please call office of Dr. Olivia Rizo MD to arrange appointment-Follow up with Cardiology Dr. Olivia Rizo MD for outpatient ALEXANDREA -Started Lipitor 40 mg daily -continue with aspirin 81 mg daily, Plavix 75 mg daily for 21 days then aspirin monotherapy -Hypercoagulable workup ordered. Please follow up with Neurology for results -Follow up with Stroke clinic follow up Brief episode of non-sustained paroxysmal SVT -Continue telemetry -TSH WNL -2D echo as above -Continue to monitor for now Active Problems: HTN (hypertension) -Hold hypertensive medication for permissive hypertension Patient refused acute rehab and agreed with home care. Antiplatelets/Anticoa gulants: Aspirin Statins: Atorvastatin Side effects: No Refills needed: No Current PT/OT/ST: No therapy needs Initial Discharge Disposition: Home with home care Current Living Situation: Home with spouse and Home with children Current use of a mobility aid for walking/getting around: None Interval History: Presents today to clinic with his History of high blood pressure for 20 years, blood pressure at PCP recently 132/80. Sees cook chief next week, Dr. Rizo. Heart monitor completed 2 weeks ago, wore it for 2 weeks. Previously not on aspirin before stroke. Remains on aspirin 81 mg daily without reported bleeding issues. 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 Normal [facility] Absolute lymphocyte countOrd ered By: Marianne Curiel on 04-12-2023 Lymphocytes Auto (Unsp spec) [#/Vol] 2.87 10*3/uL 0.83-4.51 [facility] Basophil percentageOrdered B y: Marianne Curiel on 04-12-2023 Basophils/100 WBC (Bld) 0.4 % 0-1 [facility] Bilirubin [Mass/Vol] 0.60 mg/dL 0.20-1.00 [facility] Comment on above: For patients on eltr ombopag therapy, use of Dimension [place] TBIL is not recommended. Chloride [Moles/Vol] 105 mmol/L 98-107 [facility] Cholesterol [Mass/Vol] 90 mg/dL <200 [facility] Comment on above: <200 mg/dL Desirable 200-240 mg/dL Borderline >240 mg/dL High Risk Eosinophils/100 WBC (Bld) 4.5 % 0-5 [facility] Glucose [Mass/Vol] 104 mg/dL 74-106 [facility] Comment on above: Fasting Glucose resu lt from 100 to 125 mg/dL suggests IMPAIRED HOMEOSTASIS per A.D.A. criteria. Neutrophils (Bld) [#/Vol] 5.1 10*3/uL 2.0-7.7 [facility] Neutrophils/100 WBC (Bld) 56.0 % 47-70 [facility] Potassium [Moles/Vol] 3.7 mmol/L 3.5-5.1 [facility] Protein [Mass/Vol] 7.6 g/dL 6.4-8.2 [facility] Sodium [Moles/Vol] 137 mmol/L 136-145 [facility] Triglyceride [Mass/Vol] 107 mg/dL <199 [facility] Comment on above: The drugs N-Acetylcy steine and Metamizole may falsely depress this assay.Serum Triglycerides Reference Interval Normal <150 mg/dL Borderline high 150 - 199 mg/dL High 200 - 499 mg/dL Very High > or = 500 mg/dL WBC (Bld) [#/Vol] 9.0 10*3/uL 4.4-11.0 [facility] Blood erythrocytes count (nu mber/volume)Ordered By: Marianne Curiel on 04-12-2023 RBC (Bld) [#/Vol] 4.99 10*6/uL 4.6-6.2 [facility] Blood hemoglobin measurement (mass/volume)Ordered By: Marianne Curiel on 04-12-2023 Hemoglobin (Bld) [Mass/Vol] 14.8 g/dL 13.0-16.5 [facility] Blood lymphocytes/100 leukoc ytesOrdered By: Marianne Curiel on 04-12-2023 Lymphocytes/100 WBC (Bld) 31.7 % 19-41 [facility] Blood monocytes/100 leukocyt esOrdered By: Marianne Curiel on 04-12-2023 Monocytes/100 WBC (Bld) 7.2 % 0-10 [facility] Blood platelet mean volumeOr dered By: Marianne Curiel on 04-12-2023 Platelet mean volume (Bld) [Entitic vol] 9.8 fL 6.2-12.0 [facility] Determination of erythrocyte mean corpuscular volume (MCV)Ordered By: Marianne Curiel on 04-12-2023 MCV (RBC) [Entitic vol] 88.0 fL 80-94 [facility] Hematocrit Auto (Bld) [Volum e fraction]Ordered By: Marianne Curiel on 04-12-2023 Hematocrit (Bld) [Volume fraction] 43.9 % 40-54 [facility] Laboratory - Chemistry and C hemistry - challengeOrdered By: Marianne Curiel on 04-12-2023 ALP [Catalytic activity/Vol] 51 U/L 45-117 [facility] ALT [Catalytic activity/Vol] 38 U/L 16-61 [facility] CO2 [Moles/Vol] 26.0 mmol/L 21.0-32.0 [facility] Globulin (S) [Mass/Vol] 3.4 g/dL 2.2-4.2 [facility] Urea nitrogen/Creatinine [Mass ratio] 11.6 mg/mg 10-20 [facility] Laboratory - Hematology and Cell countsOrdered By: Marianne Curiel on 04-12-2023 Erythrocyte distribution width (RBC) [Entitic vol] 39.1 fL 35.1-43.9 [facility] Erythrocyte distribution width (RBC) [Ratio] 12.2 % 11.6-14.6 [facility] Immature granulocytes/100 WBC (Bld) 0.200 % 0.0-0.9 [facility] Comment on above: IG% - Immature Granu locytes (promyelocytes, myelocytes and metamyelocytes) > 1% indicates that a LEFT SHIFT is Present. MCH (RBC) [Entitic mass] 29.7 pg 27.0-32.0 [facility] Nucleated RBC/100 WBC (Bld) [Ratio] 0 % 0-5 [facility] MCHC Auto (RBC) [Mass/Vol]Or dered By: Marianne Curiel on 04-12-2023 MCHC (RBC) [Mass/Vol] 33.7 g/dL 32-36 [facility] No Panel InformationOrdered By: Marianne Curiel on 04-12-2023 C-Reactive Protein High Sensitivity 0.31 mg/L <3.00 [facility] Comment on above: Low Relative Risk of CVD <1.0 mg/L Average Relative Risk of CVD 1.0 - 3.0 mg/L High Relative Risk of CVD >3.0 mg/L Estimated GFR (MDRD) Amer 108 mL/min >60 [facility] Comment on above: GFR Calc Estimated GFR (MDRD) Non-Af Amer 89 mL/min >60 [facility] Comment on above: Non- GFR Calc Prostate Specific Antigen Screen 0.87 ng/mL 0.00-4.00 [facility] Comment on above: This test was perfor med using the TPSA assay method for [employer] chemistry system. Values obtained with differentassay methods cannot be used interchangably.When changing PSA assays in the course of monitoring apatient, additional sequential testing should be carriedout to confirm baseline values. Thyroid Stimulating Hormone (TSH) 2.36 uIU/mL 0.358-3.74 [facility] Platelets bldOrdered By: Krish Curiel on 04-12-2023 Platelets (Bld) [#/Vol] 393 10*3/uL 150-450 [facility] Serum or plasma albumin juan urement (mass/volume)Ordered By: Marianne Curiel on 04-12-2023 Albumin [Mass/Vol] 4.2 g/dL 3.2-5.0 [facility] Serum or plasma albumin/glob ulin mass ratioOrdered By: Marianne Curiel on 04-12-2023 Albumin/Globulin [Mass ratio] 1.2 {ratio} 0.9-2.4 [facility] Serum or plasma calcium juan urement (mass/volume)Ordered By: Marianne Curiel on 04-12-2023 Calcium [Mass/Vol] 8.8 mg/dL 8.5-10.1 [facility] Serum or plasma cholesterol in HDL measurement (mass/volume)Ordered By: Marianne Curiel on 04-12-2023 Cholesterol in HDL [Mass/Vol] 33 mg/dL >40 [facility] Comment on above: The drugs N-Acetylcy steine and Metamizole may falsely depress this assay. Reference Range HDL <40 mg/dL Low HDL Cholesterol HDL >or= 60 mg/dL High HDL Cholesterol Serum or plasma cholesterol in VLDL measurement (mass/volume)Ordered By: Marianne Curiel on 04-12-2023 Cholesterol in VLDL [Mass/Vol] 21 mg/dL 5-40 [facility] Serum or plasma creatinine m easurement (mass/volume)Ordered By: Marianne Curiel on 04-12-2023 Creatinine [Mass/Vol] 0.94 mg/dL 0.70-1.30 [facility] Comment on above: The validity of the calculated GFR & GFRAA in patients over 70 years has not been determined. Clinical correlation is essential. Serum or plasma low density lipoprotein (LDL) cholesterol measurement (mass/volume)Ordered By: Marianne Curiel on 04-12-2023 Cholesterol in LDL [Mass/Vol] 36 mg/dL 0-130 [facility] Serum or plasma urea nitroge n measurement (mass/volume)Ordered By: Marianne Curiel on 04-12-2023 Urea nitrogen [Mass/Vol] 11 mg/dL 7-18 [facility] Thin prep Papanicolaou smear with manual screeningOrdered By: Marianne Curiel on 04-12-2023 Thin prep Papanicolaou smear with manual screening 21 U/L 15-37 [facility] Thin prep Papanicolaou smear with manual screening 6 5-15 [facility] CNPNon 03-15-2023 CNPN Telephone (HCSIND) IRON CONDE ([id number]) 1970 M Date Time Provider Department 03/15/23 SELF HCSIND During your visit today, we recorded the following information about you: Trenton Olea Heading And Priming Tool Setter 03/15/2023 1:34 PM Signed There has been a delay in service for Home Care OT Evaluation for this patient due to schedule conflict. Patient was notified on 03/15/2023. Thank you for this referral, please contact us with any questions. Trenton Olea Heading And Priming Tool Setter Allergies As of Date: 03/15/2023 (No Known Allergies) Date Reviewed: 03/13/2023 Reviewed by: Marylin Carter CCC-SECTION CREWS ACTIVITIES CLERK - Fully Assessed Reason for Visit: Home Care [4073] Prescriptions as of 03/15/2023 - aspirin 81 mg chewable tablet 1 tablet by ORAL/FEEDING TUBE route once daily. - atorvastatin (LIPITOR) 40 mg tablet Take 1 tablet by mouth daily at bedtime. - clopidogrel (PLAVIX) 75 mg tablet Take 1 tablet by mouth once daily for 20 doses. - lisinopril-hydroCHLOR Othiazide (ZESTORETIC) 20-12.5 mg per tablet Take 1 tablet by mouth once daily. Problem List As Of Date 03/15/2023 Noted Resolved Acute CVA (cerebrovascular accident) (HCC) [I63*03/05/2023 HTN (hypertension) [I10] 03/05/2023 Paroxysmal SVT (supraventricular tachycardia) (*03/05/2023 Encounter Status:Closed by OLEA FILTER CHANGING TECHNICIANTRENTON on 03/15/23 [facility] CNCOon 03-14-2023 CNCO Letter Text [facility] CNPGlenny 03-13-2023 CNPN Telephone (HCSIND) IRON CONDE ([id number]) 1970 M Date Time Provider Department 03/13/23 ZORA DE LA FUENTE During your visit today, we recorded the following information about you: Zora De La Fuente RN 03/13/2023 9:18 AM Signed SN unmade visit today- declined a SN visit and states he is doing well and would like seen just once this week. Allergies As of Date: 03/13/2023 (No Known Allergies) Date Reviewed: 03/10/2023 Reviewed by: Franchesca Cantrell RN - Fully Assessed Reason for Visit: Patient Update [1234] Cmt: SN unmade visit today Prescriptions as of 03/13/2023 - aspirin 81 mg chewable tablet 1 tablet by ORAL/FEEDING TUBE route once daily. - atorvastatin (LIPITOR) 40 mg tablet Take 1 tablet by mouth daily at bedtime. - clopidogrel (PLAVIX) 75 mg tablet Take 1 tablet by mouth once daily for 20 doses. - lisinopril-hydroCHLOR Othiazide (ZESTORETIC) 20-12.5 mg per tablet Take 1 tablet by mouth once daily. Problem List As Of Date 03/13/2023 Noted Resolved Acute CVA (cerebrovascular accident) (HCC) [I63*03/05/2023 HTN (hypertension) [I10] 03/05/2023 Paroxysmal SVT (supraventricular tachycardia) (*03/05/2023 Encounter Status:Closed by ZORA DE LA FUENTE on 03/13/23 Normal [facility] BETA 2 GLYCOPROTEIN, IGGon 0 03-06-2023 Beta 2 glycoprotein 1 IgG IA Qn <9 Normal <20 [facility] Comment on above: Order Comment: Jaxson knapp Type: BLOOD SPECIMEN Ordering Facility: [facility] Address: [address] [place] [address] Result Comment: <20 SGU Negative 20-80 SGU Low Positive >80 SGU High Positive These results were obtained with the [employer] QUANTA Lite B2 GPI IgG ZAY. B2 GPI IgG values obtained with different manufacturers' assay methods may not be used interchangeably. The magnitude of the reported IgG levels cannot be correlated to an endpoint titer. Performed By: #### B ETA2G, BETA2M, 5076-5, YING MOFFETT #### [facility] CLIA [id number] [address] [place] [address] STATES OF [facility] BETA 2 GLYCOPROTEIN, IGMon 0 03-06-2023 Beta 2 glycoprotein 1 IgM IA Qn <9 Normal <20 [facility] Comment on above: Order Comment: Specmojgan knapp Type: BLOOD SPECIMEN Ordering Facility: [facility] [place] Address: [address] [place] [address] Result Comment: <20 SMU Negative 20-80 SMU Low Positive >80 SMU High positive These results were obtained with the [employer] QUANTA Lite B2 GPI IgM ZAY. B2 GPI IgM values obtained with different manufacturers' assay methods may not be used interchangeably. The magnitude of the reported IgM levels cannot be correlated to an endpoint titer. Performed By: #### B ELZA BETA2M, 5076-5, YING MOFFETT #### [facility] CLIA [id number] [address] [place] [address] CARDIOLIPIN IGG ABSon 2022 Cardiolipin IgG IA Qn (S) <9.0 Normal <15.0 [facility] Comment on above: Order Comment: Speci men Type: BLOOD SPECIMEN Ordering Facility: [facility] Address: [address] [place] [address] Result Comment: <15 GPL Negative 15-20 GPL Indeterminate >20 GPL Positive The following results were obtained with the [employer] QUANTA Lite URI IgG III ZAY. Cardiolipin IgG values obtained with the different manufacturers' assay methods may not be used interchangeably. The magnitude of the reported IgG levels cannot be correlated to an endpoint titer. Performed By: #### B ELZA BETA2Jesus Alberto, [id number] CARDIM #### [facility] CLIA [id number] [address] [place] [address] CARDIOLIPIN IGM ABSon 2022 Cardiolipin IgM IA Qn (S) <9.0 Normal <12.5 [facility] Comment on above: Order Comment: Moii men Type: BLOOD SPECIMEN Ordering Facility: [facility] Address: [address] [place] [address] Result Comment: <12. 5 MPL Negative 12.5-20 MPL Indeterminate >20 MPL Positive The following results were obtained with the [employer] QUANTA Lite URI IgM III ZAY. Cardiolipin IgM values obtained with the different manufacturers' assay methods may not be used interchangeably. The magnitude of the reported IgM levels cannot be correlated to an endpoint titer. ??? Performed By: #### B ALVARO2Indra BETA2M, [id number] CARDIM #### [facility] CLIA [id number] [address] [place] [address] OF [facility] CASE MANAGEMon 03-06-2023 CASE MANAGEM HNO ID: [id number] Author: CASIMIRO Dennis Service: ASSESSMENT Author Type: Senior Technical Support Engineer Type: Care Mgt Progress Note Filed: 03/06/2023 4:29 PM Note Text: CARE MANAGEMENT DISCHARGE NOTE SERVICE DATE: March 06, 2023 SERVICE TIME: 4:28 PM Admission Date: 03/05/2023 LOS: 0 days Discharge Arrangement Discharge Arrangement: Home with Home Health Services Arranged Medical Services: Skilled Home Health Care Type: Home Health Agency, [facility], Physical Therapy, Occupational Therapy, Speech Therapy [place] of Choice Given: Yes Reason Not Given: Patient refused Level of Care Discussed: Home Care Financial Disclosure Provided: Yes Provider List: Home Care Provider list within the patient's requested geographic area shared with the patient/family: Yes within: 20 miles of zip code: [address] Quality and resource use metrics shared with the patient that are relevant to the patient's goals of care and treatment preferences:: Yes Provider Name: [facility] Caregiver Assessment Caregiver is ready, willing and able to meet the patient's needs as recommended by the inter-professional team: Yes Name of Caregiver: Family and [facility] agency to assist pt. in meeting his needs upon discharge. Transportation Arrangements Transportation Arrangements: Car Date of Trip: 03/06/23 Time of Trip: 1730 Destination: Patients home. Handoff Communication: Handoff to: Primary Care Physician Primary Care Physician Name/Phone: Dr. Curiel [phone] Additional Information: N/A Discharge Information Row Name ED to Hosp-Admission (Current) from 03/05/2023 in [facility]-they will call you with a start of care date Discharge Time Out Yes Bedside RN present Yes Does pt have transport home? Yes Did pt use bedside pharmacy? No Pt. Now agreeable to [facility]. Pt. Has no preference on agency. [facility] reports they are able to accept. Pt. Reports that his spouse will transport him home. SIGNATURE: CASIMIRO Grace PATIENT NAME: Iron Conde DATE: March 06, 2023 TIME: 4:28 PM CONTACT #: [facility] CASE MGT INIT LINApeng 2022 CASE MGT INSHAWNA DREW HNO ID: [id number] Author: CASIMIRO Dennis Service: ASSESSMENT Author Type: Senior Technical Support Engineer Type: Care Mgt Initial Assessment Filed: 03/06/2023 12:57 PM Note Text: CARE MANAGEMENT: ASSESSMENT AND DISCHARGE PLAN SERVICE DATE: March 06, 2023 SERVICE TIME: 11:30 AM PCP: Marianne Curiel APRN.QUILT STUFFER-verified Primary Contact: Extended Emergency Contact Information Primary Emergency Contact: Pastora Conde Mobile Relation: Spouse Secondary Emergency Contact: JORDY CONDE Hurley Phone: [phone] Relation: Mother Admission Status: Inpatient Insurance Provider: [employer] PPO Discharge Planning requested by: Per Department Practice Potential Transition Plans To Be Determined Advance Directives Current Advance Directive: None Photographic Machine Operator Attempted to Assist with AD Completion: Yes Action: Education Provided Current Living Arrangements and Support Lives with: Spouse/significant other Type of Residence: Private Residence (House) Does the patient have to climb stairs at home?: Yes;stairs outside the home;stairs within the home Support: Family members How do you manage to accomplish the following: Independent: Ambulation;Bathe/Show er;Dress;Meals/Meal Prep;Going to the bathroom;Medication Management;Transporta tion to appointments/communit y Current Services/Equipment Current Post-Acute Service(s): None Discharge Planning Patient Goal(s): Better mobility, General wellness, Be able to go home, Independent living [place] Choice Explained: [place] of [place] Given: No Reason Not Given: Patient refused Are you interested in bedside delivery of your medications? No Discharge Planning Participant(s): Patient Patient/Family Comments: Pt. would like to return home w/spouse. Caregiver Assessment: Caregiver is ready, willing and able to meet the patient's needs as recommended by the inter-professional team: Yes Name of Caregiver: Spouse to assist pt. in meeting his needs upon discharge. Transport at Discharge: Transportation Arrangements: Car Date of Trip: (TBD) Time of Trip: (TBD) Destination: Patients home. Needs Prior to Discharge: Needs Prior to Discharge: To Be Determined;OT/PT Evaluation Post-Acute Discharge Plan: Pt. Was admitted for stroke symptoms. Cardio has been placed on consult. PT/OT/ST have also been ordered. OT is recommending Acute Rehab. Pt. Is refusing at this time stating he is open to outpatient therapy. Pt. Is from home w/his spouse. Pt. Was I-ADLs VENDING TECHNICIAN. Family to transport home. CM will continue to follow for discharge planning needs. SIGNATURE: Kandy Stallings IT QUALITY ASSURANCE ANALYST, ORTHOTIST OR PROSTHETIST PATIENT NAME: Iron Conde DATE: March 06, 2023 TIME: 12:56 PM CONTACT #: Normal [facility] CBC panel Auto (Bld)on 03-06 Erythrocyte distribution width (RBC) [Ratio] 12.3 % Normal 11.5-15.0 [facility] Comment on above: Order Comment: Jaxson knapp Type: BLOOD SPECIMEN Ordering Facility: [facility] [place] Address: [address] [place] [address] Performed By: #### B ETA2G, BETA2M, 5076-5, YING MOFFETT #### [facility] CLIA [id number] [address] [place] [address] [place] Hematocrit (Bld) [Volume fraction] 44.9 % Normal 39.0-51.0 [facility] Comment on above: Order Comment: Jaxson knapp Type: BLOOD SPECIMEN Ordering Facility: [facility] [place] Address: [address] [place] [address] Performed By: #### B ETA2G, BETA2M, 5076-5, YING MOFFETT #### [facility] CLIA [id number] [address] [place] [address] [place] Hemoglobin (Bld) [Mass/Vol] 15.0 g/dL Normal 13.0-17.0 [facility] Comment on above: Order Comment: Jaxson knapp Type: BLOOD SPECIMEN Ordering Facility: [facility] [place] Address: [address] [place] [address] Performed By: #### B ETA2G, BETA2M, 5076-5, YING MOFFETT #### [facility] CLIA [id number] [address] MCH (RBC) [Entitic mass] 29.2 pg Normal 26.0-34.0 [facility] Comment on above: Order Comment: Speci men Type: BLOOD SPECIMEN Ordering Facility: [facility] [place] Address: [address] [place] [address] Performed By: #### B ETA2G, BETA2M, 5076-5, YING MOFFETT #### [facility] CLIA [id number] [address] [place] [address] [place] MCHC (RBC) [Mass/Vol] 33.4 g/dL Normal 30.5-36.0 [facility] Comment on above: Order Comment: Speci men Type: BLOOD SPECIMEN Ordering Facility: [facility] [place] Address: [address] [place] [address] Performed By: #### B ETA2G, BETA2M, 5076-5, YING MOFFETT #### [facility] CLIA [id number] [address] [place] [address] MCV (RBC) [Entitic vol] 87.4 fL Normal 80.0-100.0 [facility] Comment on above: Order Comment: Speci men Type: BLOOD SPECIMEN Ordering Facility: [facility] [place] Address: [address] [place] [address] Performed By: #### B ETA2G, BETA2M, 5076-5, YING MOFFETT #### [facility] CLIA [id number] [address] [place] [address] [place] Nucleated RBC (Bld) [#/Vol] 10*3/uL Normal <0.01 [facility] Comment on above: Order Comment: Speci men Type: BLOOD SPECIMEN Ordering Facility: [facility] [place] Address: [address] [place] [address] Performed By: #### B ETA2G, BETA2M, 5076-5, YING MOFFETT #### [facility] CLIA [id number] [address] [place] [address] [place] Platelet mean volume (Bld) [Entitic vol] 9.6 fL Normal 9.0-12.7 [facility] Comment on above: Order Comment: Speci men Type: BLOOD SPECIMEN Ordering Facility: [facility] [place] Address: [address] [place] [address] Performed By: #### B ETA2G, BETA2M, 5076-5, CARDIYING Burrell #### [facility] CLIA [id number] [address] [place] [address] [place] Platelets (Bld) [#/Vol] 381 10*3/uL Normal 150-400 [facility] Comment on above: Order Comment: Speci men Type: BLOOD SPECIMEN Ordering Facility: [facility] [place] Address: [address] [place] [address] Performed By: #### B ETA2G, BETA2M, 5076-5, YING MOFFETT #### [facility] CLIA [id number] [address] [place] [address] [place] RBC (Bld) [#/Vol] 5.14 10*6/uL Normal 4.20-6.00 [facility] Comment on above: Order Comment: Speci men Type: BLOOD SPECIMEN Ordering Facility: [facility] [place] Address: [address] [place], [place] [address] Performed By: #### B ETA2G, BETA2M, 5076-5, YING MOFFETT #### [facility] CLIA [id number] [address] [place] [address] [place] WBC (Bld) [#/Vol] 10.32 10*3/uL Normal 3.70-11.00 [facility] Comment on above: Order Comment: Speci men Type: BLOOD SPECIMEN Ordering Facility: [facility] [place] Address: [address] [place], [place] [address] Performed By: #### B ETA2G, BETA2M, 5076-5, YING MOFFETT #### [facility] CLIA [id number] [address] [place] [address] [place] CNDSon 03-06-2023 CNDS HNO ID: [id number] Author: Lissa Mirza DO Service: Hospital Medicine Author Type: Physician Type: Discharge Summary Filed: 03/11/2023 8:57 PM Note Text: DISCHARGE SUMMARY PATIENT NAME: Iron Conde ADMISSION DATE: 03/05/2023 DISCHARGE DATE: 03/06/2023 ATTENDING PHYSICIAN: No att. providers found Code Status: Full Code Highest Readmission Risk Score: 8 The 30 day readmissions risk score is derived from an internally validated risk model which evaluates patient level characteristics, utilization history, medication orders and lab results up until the day of discharge. Patients with a score of 40 or above are considered highest risk for readmission. Specific patient level drivers will be listed at the bottom of the summary. CONSULTING TEAMS DURING HOSPITALIZATION: Cardiology: Dr. King Neurology: Carolyn Martino APRN.QUILT STUFFER REASON FOR HOSPITALIZATION: Dysarthria, right sided weakness, right facial droop DIAGNOSIS: Principal Problem: Acute CVA (cerebrovascular accident) (HCC) (POA: Yes) Active Problems: HTN (hypertension) (POA: Yes) Paroxysmal SVT (supraventricular tachycardia) (HCC) (POA: Yes) Resolved Problems: * No resolved hospital problems. * OPERATIONS DURING HOSPITALIZATION: None PROCEDURES DURING HOSPITALIZATION: Echocardiogram, EKG, and MRI Discharge Instructions: You need outpatient 14 day ziopatch. Please call office of Dr. Olivia Rizo MD to arrange appointment 2. Follow up with Cardiology Dr. Olivia Rizo MD for outpatient ALEXANDREA 3. Started Lipitor 40 mg daily 4. Take aspirin 81 mg daily, Plavix 75 mg daily for 21 days then aspirin monotherapy 5. Hypercoagulable workup ordered. Please follow up with Neurology for results 6. Follow up with Stroke clinic follow up 7. Follow up with your family doctor in one week of discharge. HOSPITAL COURSE: Iron Conde is a 53 year old male presented with past medical history of Hypertension presented to ED for evaluation of right-sided weakness, dysarthria, balance issues. Per patient and over the phone, Monday evening around 5:30 PM, patient started walking funny after having the back pain and was feeling very tired. Neck morning on Monday at 9 AM, patient started having right-sided pain, right upper and lower extremity weakness, slurring of his words, sleeping a lot and was not talking much. Denies any numbness, tingling, difficulty swallowing, headache or blurry vision. In ED, CT brain showed no acute findings, no evidence of acute infarction, intracranial hemorrhage or intracranial mass lesion. CTA of the head and neck showed no evidence of hemodynamically significant stenosis, intraluminal filling defect, abrupt vessel occlusion, aneurysm or vascular malformation in the intracranial and extracranial arterial vasculature. EKG showed sinus bradycardia with heart rate of 59 with isolated nonspecific T wave inversion in lead III High-sensitivity troponin of 6 and less than 6 CK-MB % within normal limits Admitted for, Acute Acute left pontine infarction (cerebrovascular accident) (HCC) -NIHSS scale of 7 with mild right facial droop, right arm drift but does not hit the bed, right leg drift, hits the bed, ataxia in 2 limbs, mild to moderate dysarthria, slurring but can be understood -CT brain showed no acute findings, no evidence of acute infarction, intracranial hemorrhage or intracranial mass lesion. -CTA of the head and neck showed no evidence of hemodynamically significant stenosis, intraluminal filling defect, abrupt vessel occlusion, aneurysm or vascular malformation in the intracranial and extracranial arterial vasculature. -MRI brain showed Acute left pontine infarction. No evidence of hemorrhagic transformation. No evidence of midline shift or herniation. -2D echo showed - The left ventricle is normal in size. Left ventricular systolic function is normal. EF = 63 ? 5% (2D biplane) -The right ventricle is normal in size. Right ventricular systolic function is normal. There is no patent foramen ovale as detected by Doppler and saline contrast with valsalva. Agitated saline study is negative for shunt (clip #[phone]) MRI Brain Acute left pontine infarction, etiology unclear per Neurology Patient was seen by Cardiology and Neurology -Need outpatient 14 day ziopatch. Please call office of Dr. Olivia Rizo MD to arrange appointment -Follow up with Cardiology Dr. Olivia Rizo MD for outpatient ALEXANDREA -Started Lipitor 40 mg daily -continue with aspirin 81 mg daily, Plavix 75 mg daily for 21 days then aspirin monotherapy -Hypercoagulable workup ordered. Please follow up with Neurology for results -Follow up with Stroke clinic follow up Brief episode of non-sustained paroxysmal SVT -Continue telemetry -TSH WNL -2D echo as above -Continue to monitor for now Active Problems: HTN (hypertension) -Hold hypertensiv (more content not included)... Normal [facility] 03-06-2023 [facility] Telephone (HCSIND) IRON CONDE ([id number]) 1970 M Date Time Provider Department 03/06/23 ZORA ALLEN During your visit today, we recorded the following information about you: Zora Allen 03/06/2023 4:34 PM Signed Welcome Home Call: a. Date and Time: 4:32 PM 03/06/2023 b. Contact name/relationship: LM to return call to [facility] for Patient Zora Tiffany Mine Laborer Zora Allen 03/09/2023 9:14 AM Signed Welcome Home Call: a. Date and Time: 9:11 AM 03/09/2023 b. Contact name/relationship: Elton,Pastora (Spouse) c. Have you been active with any Home Care company in the last 60 days(such as help with bathing, filling medications, checking your blood pressure) ? No. d. [facility] will be providing your care, are you agreeable to starting these services? yes (yes or no) e. Do you have any upcoming appointments in the next few days, or restrictions to your schedule? no f. Caregiver: Patient is able to manage care independently g. Confirmed Visited Location and preferred #: yes Please keep our your medications both over the counter and prescribed out for the home care to review, your hospital discharge instructions and write down any questions you might have. In order to maintain a safe environment for our caregivers, [facility] requires any animals or weapons present in the home be located in a secured location. Our clinicians will call you the night before or the morning of the appointment. Their # may come up restricted but they'll leave a VM for you. In case you have any questions or concerns in the meantime, our # is [phone], option 5 Thank you for your time and have a great day. Zora Allen Mine Laborer Allergies As of Date: 03/06/2023 (No Known Allergies) Date Reviewed: 03/06/2023 Reviewed by: Nilton Smart RN - Fully Assessed Reason for Visit: Home Care [4073] Cmt: CONFIRMATION CALL Prescriptions as of 03/09/2023 - aspirin 81 mg chewable tablet 1 tablet by ORAL/FEEDING TUBE route once daily. - atorvastatin (LIPITOR) 40 mg tablet Take 1 tablet by mouth daily at bedtime. - clopidogrel (PLAVIX) 75 mg tablet Take 1 tablet by mouth once daily for 20 doses. - lisinopril-hydroCHLOR Othiazide (ZESTORETIC) 20-12.5 mg per tablet Take 1 tablet by mouth once daily. Problem List As Of Date 03/06/2023 Noted Resolved Acute CVA (cerebrovascular accident) (HCC) [I63*03/05/2023 HTN (hypertension) [I10] 03/05/2023 Paroxysmal SVT (supraventricular tachycardia) (*03/05/2023 Encounter Status:Closed by ZORA ALLEN on 03/06/23 [facility] CNPN Telephone (HCSIND) IRON CONDE ([id number]) 1970 M Date Time Provider Department 03/06/23 DOMONIQUE CRUZ HCSIND During your visit today, we recorded the following information about you: Allergies As of Date: 03/06/2023 (No Known Allergies) Date Reviewed: 03/06/2023 Reviewed by: Nilton Smart RN - Fully Assessed Reason for Visit: Home Care [4073] Cmt: MD to follow Prescriptions as of 03/09/2023 - aspirin 81 mg chewable tablet 1 tablet by ORAL/FEEDING TUBE route once daily. - atorvastatin (LIPITOR) 40 mg tablet Take 1 tablet by mouth daily at bedtime. - clopidogrel (PLAVIX) 75 mg tablet Take 1 tablet by mouth once daily for 20 doses. - lisinopril-hydroCHLOR Othiazide (ZESTORETIC) 20-12.5 mg per tablet Take 1 tablet by mouth once daily. Problem List As Of Date 03/06/2023 Noted Resolved Acute CVA (cerebrovascular accident) (HCC) [I63*03/05/2023 HTN (hypertension) [I10] 03/05/2023 Paroxysmal SVT (supraventricular tachycardia) (*03/05/2023 Encounter Status:Closed by DOMONIQUE CRUZ on 03/06/23 Normal [facility] COAG CORE PANEL Sarahi 2022 aPTT Coag (PPP) [Time] 24.8 s Normal 23.0-32.4 [facility] Comment on above: Order Comment: Specmojgan men Type: BLOOD SPECIMEN Ordering Facility: [facility] [place] Address: [address] [place], [place] [address] Result Comment: Froz en Plasma Aliquot Performed By: #### B ETA2G, BETA2M, 5076-5, YING MOFFETT #### [facility] CLIA [id number] [address] [place] [address] [place] Fibrinogen Coag (PPP) [Mass/Vol] 359 mg/dL Normal 200-400 [facility] Comment on above: Order Comment: Specmojgan men Type: BLOOD SPECIMEN Ordering Facility: [facility] [place] Address: [address] [place], [place] [address] Result Comment: Froz en Plasma Aliquot Performed By: #### B ETA2G, BETA2M, 5076-5, YING MOFFETT #### [facility] CLIA [id number] [address] [place] [address] [place] INR Coag (PPP) [Relative time] 1.0 {INR} Normal 0.9-1.3 [facility] Comment on above: Order Comment: Jaxson knapp Type: BLOOD SPECIMEN Ordering Facility: [facility] [place] Address: [place] [address] Result Comment: Sofi min K Antagonist (VKA) Therapeutic Range: INR 2 to 3 (Target INR of 2.5) Note: For patients treated with VKA drugs, such as warfarin, the [place] [employer] 2012 Guideline recommends a therapeutic INR range of 2 to 3 (target INR of 2.5). This recommendation includes high-risk patients with antiphospholipid syndrome with previous arterial or venous thromboembolism, current-generation mechanical or bioprosthetic aortic heart valve replacement. Note: Patients with mechanical aortic valve replacement and additional risk factors for thromboembolic events (atrial fibrillation, previous thromboembolism, LV dysfunction, hypercoagulable conditions) or an older generation mechanical AVR (i.e., ball in-Cage) or any mechanical MVR should have a INR therapeutic range of 2.5 to 3.5 (target INR of 3). Brandon GH, et al. Chest 2012, 141:7S-47S Mounika RA, et al. [facility] 2017, 70: 252-289 Frozen Plasma Aliquot Performed By: #### B DARIUS BERTRAND, 5076-5, YING MOFFETT #### [facility] CLIA [id number] [address] [place] [address] [place] PT Coag (PPP) [Time] 10.8 s Normal 9.7-13.0 [facility] Comment on above: Order Comment: Jaxson knapp Type: BLOOD SPECIMEN Ordering Facility: [facility] [place] Address: [place] [address] Performed By: #### B ETAKEEGAN StackM, 5076-5, YING MOFFETT #### [facility] CLIA [id number] [address] [place] [address] [place] CONSULTon 03-06-2023 CONSULT HNO ID: [id number] Author: Olivia Rizo MD Service: Cardiovascular Disease Author Type: Physician Type: Consults Filed: 03/06/2023 4:20 PM Note Text: CONSULT: CARDIOLOGY SERVICE PATIENT NAME: Iron Conde DATE of SERVICE: 03/06/2023 TIME of SERVICE: 4:00 PM REASON FOR CONSULT: To rule out cardiac source for any emboli REQUESTING PHYSICIAN: PRIMARY CARE PHYSICIAN: Marianne Curiel APRN.RORY Mr. Conde is a 53 year old man with hypertension woke up with slurred speech and weakness of right side and his neuro work up shows an acute left pontine infarct. CTA shows no significant pathology. No history of AF or any atrial arrhythmias. No prior history of CVA PAD Valvular heart disease. NO history of any LV dysfunction. No history of any clotting disorders. He denies any chest pain or palpitations. He feels better and his speech has improved and the weakness on right half of body is getting better as well. ASSESSMENT AND PLAN: Acute left pontine infarct with slurred speech and right hemiparesis Hypertension Will plan for ALEXANDREA Continue current medications PAST MEDICAL HISTORY: PAST MEDICAL HISTORY Diagnosis Date HTN (hypertension) PAST SURGICAL HISTORY: PAST SURGICAL HISTORY Procedure Laterality Date LASIK N/A FAMILY HISTORY: FAMILY HISTORY Problem Relation Age of Onset Hypertension Mother Diabetes Mother Hypertension Father Diabetes Father other (cva) Paternal Grandmother SOCIAL HISTORY: Social History Tobacco Use Smoking status: Never Substance Use Topics Alcohol use: Never Drug use: Never MEDICATIONS: Prior to Admission Medications: lisinopril-hydroCHLOR Othiazide (ZESTORETIC) 20-12.5 mg per tablet, Take 1 tablet by mouth once daily., Disp: , Rfl: , 03/05/2023 Current Facility-Administered Medications Medication Dose Route Frequency NaCl 0.9% iv flush bag 20 mL INTRAVENOUS PRN aspirin 81 mg chewable tab(s) 81 mg ORAL/FEEDING TUBE DAILY Or aspirin 300 mg suppository 300 mg RECTAL DAILY atorvastatin 40 mg tab(s) (LIPITOR) 40 mg ORAL/FEEDING TUBE AT BEDTIME hydrALAZINE 5 mg injection (APRESOLINE) 5 mg INTRAVENOUS q 6 H PRN sodium chloride 0.9 % (flush) 2-10 mL (BD POSIFLUSH) 2-10 mL INTRAVENOUS DIRECTED PRN And perflutren lipid microspheres 1.1 mg/mL 1.3 mL injection (DEFINITY) 1.3 mL INTRAVENOUS DIRECTED PRN clopidogrel 75 mg tab(s) (PLAVIX) 75 mg ORAL DAILY lisinopril 20 mg tab(s) (ZESTRIL) 20 mg ORAL DAILY And hydroCHLOROthiazide 12.5 mg tab(s) 12.5 mg ORAL DAILY ALLERGIES: ALLERGIES No Known Allergies COMPLETE REVIEW OF SYSTEMS: GENERAL: No weight loss, malaise or fevers HEENT: Negative for frequent or significant headaches, No changes in hearing or vision, no nose bleeds or other nasal problems NECK: Negative for lumps, goiter, pain and significant neck swelling RESPIRATORY: Negative for cough, hemoptysis, wheezing, COPD, dyspnea or shortness of breath CARDIOVASCULAR: Negative for chest pain, leg swelling, hypertension, CHF or palpitations GI: No nausea, vomiting, or diarrhea : No history of dysuria, frequency or incontinence MUSCULOSKELETAL: Negative for joint pain or swelling, back pain or muscle pain SKIN: Negative for lesions, rash, and itching PSYCH: Negative for sleep disturbance, mood disorder and recent psychosocial stressors. HEMATOLOGY/LYMPHOLOGY Negative for prolonged bleeding, bruising easily or swollen nodes ENDOCRINE: Negative for cold or heat intolerance, polyuria, polydipsia and goiter NEURO: Weakness of right half of the body and slurred speech All other reviewed and negative other than HPI. PHYSICAL EXAM: Patient Vitals for the past 24 hrs: BP Temp Temp src Pulse Resp SpO2 Height Weight 03/06/23 1200 152/96 36.6 ?C (97.8 ?F) Temporal 71 18 96 % -- -- 03/06/23 1119 152/96 -- -- 68 -- -- -- -- 03/06/23 1117 164/104 -- -- -- -- -- -- -- 03/06/23 1100 164/104 -- -- 66 -- -- -- -- 03/06/23 1000 174/112 36.6 ?C (97.8 ?F) Temporal 65 18 95 % -- -- 03/06/23 0800 164/92 36.5 ?C (97.7 ?F) Temporal (!) 58 18 97 % -- -- 03/06/23 0730 -- -- -- (!) 55 -- -- -- -- 03/06/23 0715 -- -- -- (!) 50 -- -- -- -- 03/06/23 0700 -- -- -- (!) 47 -- -- -- -- 03/06/23 0600 137/87 36.7 ?C (98 ?F) Oral (!) 50 18 97 % -- -- 03/06/23 0400 136/80 36.6 ?C (97.9 ?F) Oral (!) 46 18 96 % -- 93.8 kg (206 lb 12.7 oz) 03/06/23 0200 135/72 36.7 ?C (98 ?F) Oral (!) 49 18 97 % -- -- 03/06/23 0000 159/85 36.7 ?C (98 ?F) Oral (!) 46 18 94 % -- -- 03/05/23 2200 179/90 36.8 ?C (98.3 ?F) Oral (!) 47 18 99 % -- -- 03/05/23 2000 153/96 36.8 ?C (98.3 ?F) Oral 60 18 97 % -- -- 03/05/23 1808 160/93 36.7 ?C (98.1 ?F) Oral 73 16 97 % -- -- 03/05/23 1800 180/96 -- -- (!) 50 -- -- -- -- 03/05/23 1708 -- -- -- -- -- -- 185.4 cm (6' 1) 95.8 kg (211 lb 3.2 oz) 03/05/23 1620 172/93 36.7 ?C (98 ?F) Temporal (!) 42 16 -- -- -- 03/05/23 1600 173/93 -- -- 57 16 96 % -- -- Body mass index i (more content not included)... [facility] CONSULT HNO ID: [id number] Author: Carolyn Martino APRN.QUILT STUFFER Service: Neurology General Author Type: Nurse Practitioner Type: Consults Filed: 03/06/2023 4:54 PM Note Text: TELENEUROLOGY VISIT - NEW CONSULTATION Name and :Iron Conde 1970 Patient consented to teleneurology visit on order for consult. The Teleneurologist or CHRISTA is available from 8 am to 5 pm, including weekends but excluding statutory holidays. HAYWOOD/GWENDOLYN/BHARTIMOUNT : During Off hours for Teleneurology please page (not call) [facility] [id number] nylon winder for concerns. JENNIFER/LISSY/KENA MONTOYA: During Off hours for Teleneurology please page (not call) [facility] [phone] nylon winder for concerns. Name: Iron Conde Age: [age] year old Gender: male Chief Complaint:Potential Stroke Symptoms (Slurred speech, right sided arm and leg weakness since Monday at 2100.) Admission Date: 03/05/2023 Consult Requested By: , recommendations will be communicated by shared medical record. HPI: Iron is a 53 year old male with PMH HTN, nonsmoker, nondrinker presenting with R sided weakness. Monday evening he noted he was walking funny. But he attributed this to back pain. Woke up with slurred speech and R sided weakness on Monday morning 03/04/23. CT no acute process CTA No evidence of hemodynamically significant stenosis, intraluminal filling defect, abrupt vessel occlusion, aneurysm or vascular malformation in the intracranial and extracranial arterial vasculature. The left vertebral artery is dominant. The intracranial vertebral arteries and the basilar artery appear normal. The visualized predominantly proximal segments of the bilateral PICAs, AICAs and SCAs appear normal. There is no evidence of flow-limiting stenosis. Cervical Vertebral Arteries: Patency: Bilateral Dominance: Left MRI Brain Acute left pontine infarction Review of Systems All other systems reviewed and are negative. ACTIVE PROBLEM LIST Acute Cva (Cerebrovascular Accident) ([facility]) Htn (Hypertension) Paroxysmal Svt (Supraventricular Tachycardia) ([facility]) PAST MEDICAL HISTORY Diagnosis Date HTN (hypertension) Medications: Reviewed Current Facility-Administered Medications Medication Dose Route Frequency Provider Last Rate Last Admin iv contrast (radiology procedure) INTRAVENOUS DIRECTED PRN Reny Valdivia MD NaCl 0.9% iv flush bag 20 mL INTRAVENOUS PRN Lissa Mirza, DO aspirin 81 mg chewable tab(s) 81 mg ORAL/FEEDING TUBE DAILY Lissa Mirza, DO 81 mg at 03/06/23 0810 Or aspirin 300 mg suppository 300 mg RECTAL DAILY Lissa Mirza, DO atorvastatin 40 mg tab(s) (LIPITOR) 40 mg ORAL/FEEDING TUBE AT BEDTIME Lissa Mirza, DO 40 mg at 03/05/232001 hydrALAZINE 5 mg injection (APRESOLINE) 5 mg INTRAVENOUS q 6 H PRN Lissa Mirza, DO sodium chloride 0.9 % (flush) 2-10 mL (BD POSIFLUSH) 2-10 mL INTRAVENOUS DIRECTED PRN Lissa Mirza, DO And perflutren lipid microspheres 1.1 mg/mL 1.3 mL injection (DEFINITY) 1.3 mL INTRAVENOUS DIRECTED PRN Lissa Mirza, DO ALLERGIES No Known Allergies FAMILY HISTORY Problem Relation Age of Onset Hypertension Mother Diabetes Mother Hypertension Father Diabetes Father other (cva) Paternal Grandmother PAST SURGICAL HISTORY Procedure Laterality Date LASIK N/A Tobacco Use: Unknown Smoking Tobacco Use: Never Smokeless Tobacco Use: Unknown Passive Exposure: Not on file Alcohol Use: Not on file PHYSICAL EXAM: Physical exam performed with telepresenter and observed and documented by clinician in this note BP 164/92 Pulse (!) 58 Temp 36.5 ?C (97.7 ?F) (Temporal) Resp 18 Ht 185.4 cm (6' 1) Wt 93.8 kg (206 lb 12.7 oz) SpO2 97% BMI 27.28 kg/m? Constitutional: General: Not in acute distress. Vitals: as above, resp rate normal. Psych: Affect: congruent Attention: alert and appropriate. HENT: Head: Normocephalic and atraumatic. Eyes: Extraocular Movements: Horizontal Extraocular movements intact. Lids: Non ptotic. Neck: Midline trachea, no goiter seen. Cardiovascular: Rate and Rhythm: Normal rate/rhythm Edema: No edema noted. Pulmonary: Effort: Pulmonary effort is normal. No respiratory distress. Breath sounds: Normal breath sounds. Chest: Symmetric; unremarkable. Skin: General: Skin is warm and dry. Palpation: normal turgor MSK: Symmetric muscle bulk, no joint swelling Neuro: Neurologic Exam Mental Status Oriented to person, place, and time. Speech: slurred Level of consciousness: alert Cranial Nerves CN II Visual rene full to confrontation. CN III, IV, Pupils are equal, round, and reactive to light. Extraocular motions are normal. CN V Facial sensation intact. CN VII Right facial weakness: central CN IX, X CN IX normal. CN X normal. CN XI Right trapezius strength: weak CN XII CN XII normal. Motor Exam Strength Strength 5/5 except as noted. Right (more content not included)... Normal [facility] CRP SerPl-mCncon 03-06-2023 CRP [Mass/Vol] mg/L Normal <0.9 [facility] Comment on above: Order Comment: Jaxson knapp Type: BLOOD SPECIMEN Ordering Facility: [facility] [place] Address: [address] [address] Performed By: #### B ETA2G, BETA2M, 5076-5, YING MOFFETT #### [facility] CLIA [id number] [address] [place] [address] [place] Cardiolipin IgA Ser IA-aCnco n 03-06-2023 Cardiolipin IgA IA Qn (S) <9.0 Normal <12.0 [facility] Comment on above: Order Comment: Jaxson [facility] Type: BLOOD SPECIMEN Ordering Facility: [facility] [place] Address: [address] [place] [address] Result Comment: <12 APL Negative 12-20 APL Indeterminate >20 APL Positive The following results were obtained with the [email or web address] QUANTA Lite URI IgA III ZAY. Cardiolipin IgA values obtained with the different manufacturers' assay methods may not be used interchangeably. The magnitude of the reported IgA levels cannot be correlated to an endpoint titer. Performed By: #### B ETA2G, BETA2M, 5076-5, YING MOFFETT #### [facility] CLIA [id number] [address] [place] [address] [place] Comprehensive metabolic 2000 panelon 03-06-2023 Albumin [Mass/Vol] 4.4 g/dL Normal 3.9-4.9 [facility] Comment on above: Order Comment: Moii ra Type: BLOOD SPECIMEN Ordering Facility: [facility] [place] Address: [address] [place] [address] Performed By: #### B ETA2G, BETA2M, 5076-5, YING MOFFETT #### [facility] CLIA [id number] [address] [id number] [address] [place] ALP [Catalytic activity/Vol] 48 U/L Normal 38-113 [facility] Comment on above: Order Comment: Speci men Type: BLOOD SPECIMEN Ordering Facility: [facility] [place] Address: [address] [place] [address] Performed By: #### B ETA2G, BETA2M, 5076-5, YING MOFFETT #### [facility] CLIA [id number] [address] [place] ALT [Catalytic activity/Vol] 23 U/L Normal 10-54 [facility] Comment on above: Order Comment: Speci men Type: BLOOD SPECIMEN Ordering Facility: [facility] [place] Address: [address] [place] [address] Performed By: #### B ETA2G, BETA2M, 5076-5, YING MOFFETT #### [facility] CLIA [id number] [address] [place] [address] Anion gap [Moles/Vol] 12 mmol/L Normal 9-18 [facility] Comment on above: Order Comment: Speci men Type: BLOOD SPECIMEN Ordering Facility: [facility] [place] Address: [address] [place] [address] Performed By: #### B ETA2G, BETA2M, 5076-5, YING MOFFETT #### [facility] CLIA [id number] [address] [place] [address] [place] AST [Catalytic activity/Vol] 19 U/L Normal 14-40 [facility] Comment on above: Order Comment: Speci men Type: BLOOD SPECIMEN Ordering Facility: [facility] [place] Address: [address] [place] [address] Performed By: #### B ETA2G, BETA2M, 5076-5, YING MOFFETT #### [facility] CLIA [id number] [address] [place] Bilirubin [Mass/Vol] 0.6 mg/dL Normal 0.2-1.3 [facility] Comment on above: Order Comment: Speci men Type: BLOOD SPECIMEN Ordering Facility: [facility] [place] Address: [address] Performed By: #### B ETA2G, BETA2M, 5076-5, YING MOFFETT #### [facility] CLIA [id number] [address] [place] [address] [place] Calcium [Mass/Vol] 9.3 mg/dL Normal 8.5-10.2 [facility] Comment on above: Order Comment: Speci men Type: BLOOD SPECIMEN Ordering Facility: [facility] [place] Address: [address] [address] Performed By: #### B ETA2G, BETA2M, 5076-5, YING MOFFETT #### [facility] CLIA [id number] [address] [place] [address] [place] Chloride [Moles/Vol] 103 mmol/L Normal 97-105 [facility] Comment on above: Order Comment: Speci men Type: BLOOD SPECIMEN Ordering Facility: [facility] [place] Address: [address] Performed By: #### B ETA2G, BETA2M, 5076-5, YING MOFFETT #### [facility] CLIA [id number] [address] [place] [address] [place] CO2 [Moles/Vol] 25 mmol/L Normal 22-30 [facility] Comment on above: Order Comment: Speci men Type: BLOOD SPECIMEN Ordering Facility: [facility] [place] Address: [address] Performed By: #### B ETA2G, BETA2M, 5076-5, YING MOFFETT #### [facility] CLIA [id number] [address] [place] [address] [place] Creatinine [Mass/Vol] 0.96 mg/dL Normal 0.73-1.22 [facility] Comment on above: Order Comment: Speci men Type: BLOOD SPECIMEN Ordering Facility: [facility] [place] Address: [address] [id number] Performed By: #### B ETA2G, BETA2M, 5076-5, YING MOFFETT #### [facility] CLIA [id number] [facility] [place] [address] [place] ESTIMATED GLOMERULAR FILTRATION RATE 96 mL/min/1.73m??? Normal >=60 [facility] Comment on above: Order Comment: Jaxson knapp Type: BLOOD SPECIMEN Ordering Facility: [facility] [place] Address: [address] [address] Result Comment: Tara mated Glomerular Filtration Rate (eGFR) is calculated using the 2020 CKD-EPI creatinine equation. This equation utilizes serum creatinine, sex, and age as parameters. The creatinine assay has traceable calibration to isotope dilution-mass spectrometry. Refer to KDIGO guidelines for clinical interpretation. In patients with unstable renal function, e.g. those with acute kidney injury, the eGFR may not accurately reflect actual GFR. Performed By: #### B ETA2G, BETA2M, 5076-5, YING MOFFETT #### [facility] CLIA [id number] [address] [place] [address] [place] Glucose [Mass/Vol] 115 mg/dL High 74-99 [facility] Comment on above: Order Comment: Jaxson knapp Type: BLOOD SPECIMEN Ordering Facility: [facility] [place] Address: [address] [address] Result Comment: The [place] Diabetes Association (ADA) provides guidance for cutoff values for fasting glucose and random glucose. The ADA defines fasting as no caloric intake for at least 8 hours. Fasting plasma glucose results between 100 to 125 mg/dL indicate increased risk for diabetes (prediabetes). Fasting plasma glucose results greater than or equal to 126 mg/dL meet the criteria for diagnosis of diabetes. In the absence of unequivocal hyperglycemia, results should be confirmed by repeat testing. In a patient with classic symptoms of hyperglycemia or hyperglycemic crisis, random plasma glucose results greater than or equal to 200 mg/dL meet the criteria for diagnosis of diabetes. Reference: Standards of Medical Care in Diabetes 2016, [place] Diabetes Association. Diabetes Care. 2016.39(Suppl 1). Performed By: #### B ETA2G, BETA2M, 5076-5, YING MOFFETT #### [facility] CLIA [id number] [address] [place] [address] [place] Potassium [Moles/Vol] 3.8 mmol/L Normal 3.7-5.1 [facility] Comment on above: Order Comment: Speci men Type: BLOOD SPECIMEN Ordering Facility: [facility] [place] Address: [address] [id number] Performed By: #### B ETA2G, BETA2M, 5076-5, YING MOFFETT #### [facility] CLIA [id number] [address] [place] [address] [place] Protein [Mass/Vol] 7.1 g/dL Normal 6.3-8.0 [facility] Comment on above: Order Comment: Speci men Type: BLOOD SPECIMEN Ordering Facility: [facility] [place] Address: [address] Performed By: #### Armida ETA2G, BETA2M, 5076-5, YING MOFFETT #### [facility] CLIA [id number] [address] [place] [address] [place] Sodium [Moles/Vol] 140 mmol/L Normal 136-144 [facility] Comment on above: Order Comment: Speci men Type: BLOOD SPECIMEN Ordering Facility: [facility] [place] Address: [address] [id number] Performed By: #### B ETA2G, BETA2M, 5076-5, YING MOFFETT #### [facility] CLIA [id number] [address] [place] [address] [place] Urea nitrogen [Mass/Vol] 14 mg/dL Normal 9-24 [facility] Comment on above: Order Comment: Speci men Type: BLOOD SPECIMEN Ordering Facility: [facility] [place] Address: [address] Performed By: #### B ETA2G, BETA2M, 5076-5, YING MOFFETT #### [facility] CLIA [id number] [address] [place] [address] [place] ECHO WITH AGITATED SALINE CO NTRASTon 03-06-2023 ECHO WITH AGITATED SALINE CONTRAST Echocardiography Report: Transthoracic Echo [facility] Date of service: 03/06/2023 1:53:46 PM Ordering physician: LISSA MIRZA Indication: Stroke Technologist: Daina Blevins [facility] Interpreting physician: Casa Martínez DO PATIENT: Name: MR. IRON CONDE : 1970 Age: 53 years Gender: M History of hypertension. Primary rhythm: sinus. Height: 185.40 cm BSA: 2.22 m Weight: 95.80 kg BMI: 27.9 kg/m Heart rate 65 bpm Blood pressure 137/87 mmHg Agitated saline was administered to assess source of emboli. Color Doppler was utilized to interrogate the cardiac valves assessed and spectral Doppler was utilized to determine the flow velocities and pressure gradients reported in this exam. Myocardial strain analysis was performed in this exam to aid in the assessment of cardiac function. MEASUREMENTS: Value Indexed Normal Max aortic dimension 3.3 cm Ao < 3.8 Left atrium diameter 3.8 cm (2D) Left atrial volume 33 ml (biplane A-L) 15 ml/m Alecia <= 34 LV ID (diastole) 4.6 cm (2D) 2.05 cm/m LV ID (systole) 2.6 cm (2D) 1.18 cm/m IVS, leaflet tips 1.0 cm (2D) Posterior wall thickness 1.0 cm (2D) Left ventricular mass 160 g (2D) 72 g/m Global peak long strain -18.5 % LV stroke volume 85 ml (2D biplane) LV end diastolic volume 135 ml (2D biplane) 60.9 ml/m 34<=EDVi<75 LV end systolic volume 51 ml (2D biplane) 22.8 ml/m Ejection Fraction 63 % (2D biplane) EF > 52 FINDINGS: LEFT VENTRICLE The left ventricle is normal in size. Left ventricular systolic function is normal. Global LV myocardial strain is normal. Mitral annular lateral E/e': 8.0. Mitral annular septal E/e': 9.2. Wall Motion: All scored segments are normal. RIGHT VENTRICLE The right ventricle is normal in size. Right ventricular systolic function is normal. RV systolic tissue Doppler velocity is 20.2 cm/s. Tricuspid annular displacement is 1.6 cm. Estimated right atrial pressure is 3 mmHg based on IVC assessment. LEFT ATRIUM The left atrial cavity is normal in size. Pulmonary Veins: The pulmonary venous pattern showed normal systolic flow. RIGHT ATRIUM The right atrial cavity is normal in size. Inferior Vena Cava: The inferior vena cava appears normal measuring 1.0 cm. The vessel decreases greater than 50 percent with inspiration. MITRAL VALVE The mitral valve leaflets are structurally normal. There is mild mitral annular calcification observed posterior. There is no mitral valve regurgitation. The pressure half time is 64 msec. The peak mitral E/A ratio is 0.62. The average mitral E/e' ratio is 8.6. The mitral flow deceleration time is 222 msec. TRICUSPID VALVE The tricuspid valve leaflets are structurally normal. There is no tricuspid valve regurgitation. AORTIC VALVE The aortic valve cusps are structurally normal. There is no aortic valve regurgitation. Tricuspid aortic valve. The peak gradient is 12 mmHg (peak velocity = 172.0 cm/s). The LVOT diameter is 2.1 cm. PULMONIC VALVE The pulmonic valve was not seen or not interrogated. There is trace pulmonic valve regurgitation. AORTA The visualized aorta is normal in size. Measurements - Aortic valve annulus 2.1 cm. Mid ascending aorta 3.3 cm. PULMONARY ARTERIES The pulmonary arteries are unseen or not interrogated. INTERATRIAL SEPTUM There is no patent foramen ovale as detected by Doppler and saline contrast with valsalva. INTERVENTRICULAR SEPTUM There is normal motion of the interventricular septum. PERICARDIUM There is no pericardial effusion. CONCLUSIONS: - Exam indication: Stroke - The left ventricle is normal in size. Left ventricular systolic function is normal. EF = 63 5% (2D biplane) - The right ventricle is normal in size. Right ventricular systolic function is normal. - There is no patent foramen ovale as detected by Doppler and saline contrast with valsalva. - Agitated saline study is negative for shunt (clip #106) - The patient has not had a prior CC echocardiographic exam for comparison. * * * Final * * * CC [facility] : [id number] Normal [facility] HYPERCOAG PANELon 03-06-2023 Activated protein C resistance Coag (PPP) [Time ratio] 2.52 Ratio Normal >1.96 [facility] Comment on above: Order Comment: Speci men Type: BLOOD SPECIMEN Ordering Facility: [facility] [place] Address: [address] [place] [address] Performed By: #### B ETA2G, BETA2M, 5076-5, YING MOFFETT #### [facility] CLIA [id number] [address] [place] [address] [place] Antithrombin actual/normal Chromogenic method (PPP) [Rel catalytic activity/Vol] 110 % Normal 84-138 [facility] Comment on above: Order Comment: Speci men Type: BLOOD SPECIMEN Ordering Facility: [facility] [place] Address: [address] [address] Performed By: #### B ETA2G, BETA2M, 5076-5, YING MOFFETT #### [facility] CLIA [id number] [address] [place] [address] [place] aPTT Coag (Bld) [Time] 25.5 s Normal 24.0-35.1 [facility] Comment on above: Order Comment: Speci men Type: BLOOD SPECIMEN Ordering Facility: [facility] [place] Address: [address] [id number] Performed By: #### B ETA2G, BETA2M, 5076-5, YING MFOFETT #### [facility] CLIA [id number] [address] [place] [address] [place] aPTT W excess hexagonal phase phospholipid Coag (PPP) [Time] 42.2 seconds Normal 34.0-51.8 [facility] Comment on above: Order Comment: Speci men Type: BLOOD SPECIMEN Ordering Facility: [facility] [place] Address: [address] [place] [address] Performed By: #### B ETA2G, BETA2M, 5076-5, YING MOFFETT #### [facility] CLIA [id number] [address] [place] [address] Coagulation factor VIII activity actual/normal Coag (PPP) [Relative time] 192 % High 50-173 [facility] Comment on above: Order Comment: Speci men Type: BLOOD SPECIMEN Ordering Facility: [facility] [place] Address: [address] [place] [address] Performed By: #### B ETA2G, BETA2M, 5076-5, YING MOFFETT #### [facility] CLIA [id number] [address] [place] [address] [place] Delta dRVVT Coag (PPP) [Time diff] 3.2 delta seconds Normal <7.1 [facility] Comment on above: Order Comment: Speci men Type: BLOOD SPECIMEN Ordering Facility: [facility] [place] Address: [address] [place] [address] Performed By: #### B ETA2G, BETA2M, 5076-5, YING MOFFETT #### [facility] CLIA [id number] [address] [place] [address] [place] dRVVT W excess hexagonal phase phospholipid actual/normal Coag (PPP) [Relative time] 39.0 seconds Normal 34.2-47.9 [facility] Comment on above: Order Comment: Speci men Type: BLOOD SPECIMEN Ordering Facility: [facility] [place] Address: [address] [place] [address] Performed By: #### B ETA2G, BETA2M, 5076-5, CARDIYING Burrell #### [facility] CLIA [id number] [address] [place] [address] [place] Protein C actual/normal Coag (PPP) [Relative time] 126 % Normal 76-147 [facility] Comment on above: Order Comment: Speci men Type: BLOOD SPECIMEN Ordering Facility: [facility] [place] Address: [address] [place] [address] Performed By: #### B ETA2G, BETA2M, 5076-5, CARDIG CARDIM #### [facility] [place] [id number] [address] [place] [address] [place] Protein S actual/normal Coag (PPP) [Relative time] 92 % Normal 59-152 [facility] Comment on above: Order Comment: Speci men Type: BLOOD SPECIMEN Ordering Facility: [facility] [place] Address: [address] [place] [address] Performed By: #### B ETA2G, BETA2M, 5076-5, CARDIIndra CARDIM #### [facility] [place] [id number] [address] [place] [address] [place] Thrombin time Coag (PPP) [Time] <16.8 Normal <18.6 [facility] Comment on above: Order Comment: Jaxson men Type: BLOOD SPECIMEN Ordering Facility: [facility] [place] Address: [address] [place] [address] Performed By: #### B ETA2G, BETA2M, 5076-5, CARDIIndra CARDIM #### [facility] [place] [id number] [address] [place] [address] [place] HbA1c (Bld)on 03-06-2023 Average glucose Estimated from glycated hemoglobin (Bld) [Mass/Vol] 114 mg/dL Normal [facility] Comment on above: Order Comment: Moii men Type: BLOOD SPECIMEN Ordering Facility: [facility] [place] Address: [address] [place] [address] Result Comment: eAG: (Estimated average glucose) is a calculated value from HgbA1c and is outbound call center representative of the average blood glucose level in the last 2-3 month period. Performed By: #### 5 5454-3 #### [facility] CLIA [id number] [address] [place] HbA1c (Bld) [Mass fraction] 5.6 % Normal 4.3-5.6 [facility] Comment on above: Order Comment: Jaxson knapp Type: BLOOD SPECIMEN Ordering Facility: [facility] [place] Address: [address] [address] Result Comment: [place] Diabetes Association guidelines indicate that patients with HgbA1c in the range 5.7-6.4% are at increased risk for development of diabetes, and intervention by lifestyle modification may be beneficial. HgbA1c greater or equal to 6.5% is considered diagnostic of diabetes. Performed By: #### 5 5454-3 #### [facility] CLIA [id number] [address] [place] [address] [place] LUPUS PANELon 03-06-2023 aPTT Coag (Bld) [Time] 26.1 s Normal 24.0-35.1 [facility] Comment on above: Order Comment: Jaxson knapp Type: BLOOD SPECIMEN Ordering Facility: [facility] [place] Address: [address] [address] Performed By: #### B ELZA BETA2M, 5076-5, YING MOFFETT #### [facility] CLIA [id number] [address] [place] [address] [place] aPTT W excess hexagonal phase phospholipid Coag (PPP) [Time] 42.5 seconds Normal 34.0-51.8 [facility] Comment on above: Order Comment: Jaxson men Type: BLOOD SPECIMEN Ordering Facility: [facility] [place] Address: [address] [address] Performed By: #### B ETA2G, BETA2M, 5076-5, YING MOFFETT #### [facility] CLIA [id number] [address] [place] [address] [place] Delta dRVVT Coag (PPP) [Time diff] 2.9 delta seconds Normal <7.1 [facility] Comment on above: Order Comment: Speci men Type: BLOOD SPECIMEN Ordering Facility: [facility] [place] Address: [address] [place] [address] Performed By: #### B ETA2G, BETA2M, 5076-5, YING MOFFETT #### [facility] CLIA [id number] [address] [place] dRVVT Coag (PPP) [Time] 32.2 s Normal 32.0-45.7 [facility] Comment on above: Order Comment: Speci men Type: BLOOD SPECIMEN Ordering Facility: [facility] [place] Address: [address] [place] [address] Performed By: #### B ETA2G, BETA2M, 5076-5, YING MOFFETT #### [facility] CLIA [id number] [address] [place] [address] OF [place] dRVVT factor substitution immediately after 1:2 addition of normal plasma Coag (PPP) [Time] 35.3 seconds Normal 32.0-45.7 [facility] Comment on above: Order Comment: Speci men Type: BLOOD SPECIMEN Ordering Facility: [facility] [place] Address: [address] [place] [address] Performed By: #### B ETA2G, BETA2M, 5076-5, YING MOFFETT #### [facility] CLIA [id number] [address] [place] [address] OF [place] dRVVT W excess hexagonal phase phospholipid actual/normal Coag (PPP) [Relative time] 39.6 seconds Normal 34.2-47.9 [facility] Comment on above: Order Comment: Speci men Type: BLOOD SPECIMEN Ordering Facility: [facility] [place] Address: [address] [place] [address] Performed By: #### B ETA2G, BETA2M, 5076-5, YING MOFFETT #### [facility] CLIA [id number] [address] OF [place] dRVVT/dRVVT.excess phospholipid Coag (PPP) [Ratio] 1.04 Normal <1.32 [facility] Comment on above: Order Comment: Jaxson knapp Type: BLOOD SPECIMEN Ordering Facility: [facility] [place] Address: [address] [place] [address] Performed By: #### B ETA2G, BETA2M, 5076-5, YING MOFFETT #### [facility] CLIA [id number] [address] [place] [address] [place] Lupus anticoagulant neutralization platelet Coag Ql (PPP) Negative Normal Negative [facility] Comment on above: Order Comment: Jaxson knapp Type: BLOOD SPECIMEN Ordering Facility: [facility] [place] Address: [address] [place] [address] Performed By: #### B ETA2G, BETA2M, 5076-5, YING MOFFETT #### [facility] CLIA [id number] [address] [place] [address] [place] Lipid 1996 panelon 3 Cholesterol [Mass/Vol] 181 mg/dL Normal <200 [facility] Comment on above: Order Comment: Jaxson knapp Type: BLOOD SPECIMEN Ordering Facility: [facility] [place] Address: [address] [place] [address] Result Comment: <200 mg/dL, Desirable 200-239 mg/dL, Borderline high >239 mg/dL, High Performed By: #### B ETA2G, BETA2M, 5076-5, YING MOFFETT #### [facility] CLIA [id number] [address] [place] [address] [place] Cholesterol in HDL [Mass/Vol] 30 mg/dL Low >39 [facility] Comment on above: Order Comment: Jaxson knapp Type: BLOOD SPECIMEN Ordering Facility: [facility] [place] Address: [address] [place] [address] Result Comment: 40-5 9 mg/dL, Acceptable >59 mg/dL, High: Negative risk factor for coronary heart disease <40 mg/dL, Low: Positive risk factor for coronary heart disease Performed By: #### B ELZA BETA2Jesus Alberto, 5076-5, YING MOFFETT #### [facility] CLIA [id number] [address] [place] [address] [place] Cholesterol in LDL [Mass/Vol] 117 mg/dL High <100 [facility] Comment on above: Order Comment: Jaxson knapp Type: BLOOD SPECIMEN Ordering Facility: [facility] [place] Address: [address] [place] [address] Result Comment: <100 mg/dL, Optimal 100-129 mg/dL, Near optimal/above optimal 130-159 mg/dL, Borderline high 160-189 mg/dL, High >189 mg/dL, Very high Secondary prevention optimal LDL Cholesterol levels are recommended to be < 70 mg/dL Performed By: #### B ELZA BETA2Jesus Alberto, 5076-, YING MOFFETT #### [facility] CLIA [id number] [address] [place] [address] [place] Cholesterol in LDL/Cholesterol in HDL [Mass ratio] 3.90 {ratio} High <2.54 [facility] Comment on above: Order Comment: Jaxson knapp Type: BLOOD SPECIMEN Ordering Facility: [facility] [place] Address: [address] [place] [address] Result Comment: Refe rence: 1. National Cholesterol Education Program ATP III Guideline At-A-Glance Quick Desk Reference: National Heart, Lung, and Blood [place]. National Institutes of Health. 2001: NIH Publication No. 01-3305. 2. An International Atherosclerosis Society position paper: global recommendations for the management of dyslipidemia: executive summary, Atherosclerosis. 2014: 232(2):410-413. Performed By: #### B ELZA BETA2Jesus Alberto, 5076-5, YING MOFFETT #### [facility] CLIA [id number] [address] [place] [address] [place] Cholesterol in VLDL [Mass/Vol] 34 mg/dL High <30 [facility] Comment on above: Order Comment: Speci men Type: BLOOD SPECIMEN Ordering Facility: [facility] [place] Address: [address] Performed By: #### B ETA2G, BETA2M, 5076-5, YING MOFFETT #### [facility] CLIA [id number] [address] [place] [address] [place] Cholesterol non HDL [Mass/Vol] 151 mg/dL High <130 [facility] Comment on above: Order Comment: Speci men Type: BLOOD SPECIMEN Ordering Facility: [facility] [place] Address: [address] Result Comment: <130 mg/dL, Optimal 130-159 mg/dL, Near optimal/above optimal 160-189 mg/dL, Borderline high 190-219 mg/dL, High >219 mg/dL, Very high Secondary prevention optimal non HDL Cholesterol levels are recommended to be <100 mg/dL Performed By: #### B ETA2G, BETA2M, 5076-5, YING MOFFETT #### [facility] CLIA [id number] [facility] [place] [address] [place] Cholesterol.total/Chol esterol in HDL [Mass ratio] 6.03 {ratio} High <5.10 [facility] Comment on above: Order Comment: Speci men Type: BLOOD SPECIMEN Ordering Facility: [facility] [place] Address: [address] [place] [address] Performed By: #### B ETA2G, BETA2M, 5076-5, YING MOFFETT #### [facility] CLIA [id number] [address] [place] [address] [place] FASTING TIME 8 hrs Normal [facility] Comment on above: Order Comment: Speci men Type: BLOOD SPECIMEN Ordering Facility: [facility] [place] Address: [address] [place] [address] Performed By: #### B ETA2G, BETA2M, 5076-5, IYNG MOFFETT #### [facility] CLIA [id number] [address] Triglyceride [Mass/Vol] 170 mg/dL High <150 [facility] Comment on above: Order Comment: Moimojgan knapp Type: BLOOD SPECIMEN Ordering Facility: [facility] [place] Address: [address] [address] Result Comment: <150 mg/dL, Normal 150-199 mg/dL, Borderline high 200-499 mg/dL, High >499 mg/dL, Very high Performed By: #### B ETA2G, BETA2M, 5076-5, CARDIG, CARDIM #### [facility] CLIA [id number] [address] [place] [address] PROTHROMBIN GENE PCRon 03-06 PROTHROMBIN GENE MUTATION Normal [facility] Comment on above: Order Comment: Jaxson knapp Type: BLOOD SPECIMEN Ordering Facility: [facility] [place] Address: [address] [place] [address] Result Comment: Prot hrombin Gene Mutation Laboratory Accession Number: [id number] Result: NORMAL Interpretation: The DNA sample is negative for the c.*97G>A variant (legacy name 43608B>A) in the 3' untranslated region of the Factor II (F2) gene. This result is not associated with an increased risk of thromboembolic disease. Thromboembolic disease is a multifactorial disorder and other causes are not excluded by this result. Methodology: Isolated Genomic DNA from the patient's blood specimen is evaluated for the c*97G>A ([id number]) variant of the F2 gene [RefSeq [id number];GRCh38/hg38] by multiplex polymerase chain reaction (PCR) followed by melting curve analysis. Limitations: This assay is designed to detect the c.*97G>A (55979U>A) variant in the F2 gene. Uncommon variants or single nucleotide polymorphisms may affect binding of probes and may rarely result in false negative, false positive or indeterminate results. This assay does not detect other disease-associated rare variants in F2 or other causes of thromboembolic disease. Disclaimer: This test was developed and its performance characteristics determined by [facility]'s [facility] [place] ([facility]). It has not been cleared or approved by the FDA. [facility] is regulated under CLIA as certified to perform high- complexity testing. This test is used for clinical purposes. It should not be regarded as investigational or for research. Testing [place] [address]. CLIA Number: [id number] References: 1) Inheritied Thrombophilias in . ACOG Practice Bulletin. No. 197. [place] [employer]. Obsete Gynecol 2018;132:e18-34. 2) Pearl SR, Juanita FR, Jona PH, and Jocelin RM. A common genetic variation in the 3'-untranslated region of the prothrombin gene is associated with elevated plasma prothrombin levels and an increase in venous thrombosis. Blood 88:3698-703, 1995. 3) Chase I, Ilene V, Julio C, Tessa K. Prothrombin 27897G>T: 16 new cases, association with the 99558U>G polymorphism, and literature review. J Thromb Haemost. 2009;9:1585-7. As reviewed by Marisela Morales, PhD, FACMG Performed By: #### B ETA2G, BETA2M, 5076-5, YING MOFFETT #### [facility] [place] [id number] [address] [place] [address] [place] THERAPY NTon 03-06-2023 THERAPY NT HNO ID: [id number] Author: Essie Garay, PT Service: Physical Therapy Author Type: Physical Therapist Type: Therapy (PT/OT/Speech/Resp) Filed: 03/06/2023 3:29 PM Note Text: Physical Therapy Evaluation SERVICE DATE: 03/06/2023 SERVICE TIME: 1317 to 1340 ROOM: [address] [address] Recommended Discharge Disposition: Acute Rehab Recommended Discharge Disposition Comments: Pt currently functioning below baseline with + CVA. Pt demonstrating R-side deficits with R facial droop, and slurred speech. RLE ataxia and RUE deficits noted as well. Pt would benefit from daily intensive therapy services upon discharge to address deficits and assist pt to independent PLOF. Recommended Discharge Disposition Due to: Patient requires an active, intensive rehabilitation therapy program due to:, decline in functional status requiring daily skilled care, deficits affecting dominant side, deficits affecting non-dominant side, ongoing intervention of multiple therapy disciplines Anticipated Discharge Needs: Physical Assist at Home, Supervision at Home, Family Training Physical Assist at Home for: Cleaning, Laundry, Meals, Transportation, Shopping, Self Care, Safety, Stairs, Transfers, Ambulation Supervision at Home due to: Decreased safety awareness, Impaired cognition Recommended Discharge Equipment: No equipment needs anticipated PT 6 Clicks Score: 19 Precautions/Activity Restrictions: Fall Risk Isolation Type: None Current Hospital Course: Acute CVA Reason for Hospital Admission: 53 year old admitted with slurred speech, right arm and leg weakness; MRI indicated acute L infarction (CVA) Relevant Past Medical History: HTN Response to Therapy Interventions: Good Participation in Activities, Multiple Ongoing Medical Issues, Needs Frequent Redirection or Reinstruction, Pain, Requires Additional Time to Complete Activities, Labile Vital Signs, Cognitive Deficits Assessment Comments: Pt adament about home-going, presents as HIGH fall risk, encouraged to use AD. Demonstrates RUE/RLE deficits with R facial droop and slurred speech Continued Skilled Needs Due to: Family Training Required, Functional Mobility/Skill Impairments, Safety Concerns, Continued Monitoring of Vital Signs During Mobility Required Physical Therapy Problem List: Education Deficit, Cognitive Deficit, Safety Deficits, Impaired Self Care, Decreased Activity Tolerance, Decreased Range Of Motion, Decreased Strength, Functional Mobility Impairment, Balance Impaired, Pain Treatment Interventions: Education, Self Care / Home Management, Energy Conservation Training, Joint Mobility, Strengthening, Functional Mobility Training, Balance Training, Edema Management, Pain Management Plan for Next Visit: Bed Mobility, Cane Training, Chair Transfer Training, Fall Prevention, Family Instruction, Gait Training, Exercise Instruction/Handout, Sit to Stand Transfers, Sitting Balance, Standing Balance, Standing Tolerance, Stair Training, Walker Training Home Environment Patient Lives With: Family Assistance Available: Part-Time Entry To Home: Stairs, With Rail Number Of Stairs Into Home: 3 Number Of Stairs To Bed/Bath: 13 Stairs to Bed/Bath with: Unilateral Rail Tub/Shower Type: walk in shower Laundry: first floor Equipment Owned: Cane, Walker- Wheeled Prior Functional Level: Within Functional Limits Prior Functional Level Comments: Ind self care and functional mobilty, self employed with food truck, +driving Baseline Cognition: Oriented to self, Oriented to place, Oriented to time, Oriented to situation Patient Report: Pt reports, I know I have a lot of hard work ahead of me. Agreeable to PT, cleared with RN CURRENT FUNCTIONAL STATUS: Most recent performance Current Functional Mobility Assist Level Additional Information Rolling Supine to Sit Additional Information Sitting EOB upon approach Sit to Supine Additional Information Sitting EOB at session end Scooting Contact Guard Assistance Sit to Stand Contact Guard Assistance, Additional Information RLE balance deficits while standing EOB Stand to Sit Contact Guard Assistance Bed to Chair Toilet/Commode Gait Minimal Assistance, Additional Information Gait Device: None, Other: See Comment (gait belt) Gait Distance (feet): 2 X 45 Significant fall risk, RLE ataxia, balance deficits throughout Stairs Minimal Assistance, Additional Information Stairs Device: Rail Number of Stairs: 10 Significant fall risk, ataxic RLE, unilateral rail for ascending and descending. Demonstrates deficits with R dorsiflexion during ascending Curb Step Car Transfer Blank rene indicate activity not attempted Balance: Static Sitting, Dynamic Sitting, Static Standing, Dynamic Standing Static Sitting Balance: Good Patient able to maintain balance without handhold support, limited postural sway Dynamic Sitting Balance: Fair Patient accepts minimal challenge, able to maintain ba (more content not included)... [facility] THERAPY NT HNO ID: [id number] Author: KHANG Colindres/Caren Service: Occupational Therapy Author Type: Occupational Therapist Type: Therapy (PT/OT/Speech/Resp) Filed: 03/06/2023 11:57 AM Note Text: Occupational Therapy Evaluation SERVICE DATE: 03/06/2023 SERVICE TIME: 1055 to 1124 ROOM: [address] [address] Recommended Discharge Disposition: Acute Rehab Recommended Discharge Disposition Comments: patient is functioning below baseline. Decreased sitting and standing balance, impaired R UE Recommended Discharge Disposition Due to: Patient requires an active, intensive rehabilitation therapy program due to:, anticipate community discharge/previous community dweller, coordination deficits, deficits affecting dominant side Recommended Discharge Equipment: Shower Chair OT 6 Clicks Score: 19 Precautions/Activity Restrictions: Fall Risk Isolation Type: None Current Hospital Course: Acute CVA Reason for Hospital Admission: 53 year old admitted with slurred speech, right arm and leg weakness; MRI indicated acute L infarction (CVA) Relevant Past Medical History: HTN Response to Therapy Interventions: Good Participation in Activities, Requires Additional Time to Complete Activities Assessment Comments: patient pleasant during evaluation. Decreased funtional mobilty with decreased standing and dynamic balance during self care management. Patient reports he will go home and not to a facility for rehab Continued Skilled Needs Due to: Functional Impairment Occupational Therapy Problem List: Safety Deficits, Impaired Self Care, Decreased Activity Tolerance, Decreased Range Of Motion, Decreased Strength, Functional Mobility Impairment, Balance Impaired Cognition/Communicati on Deficits Responsiveness: Alert, Awake Treatment Interventions: Balance Training, Education, Self Care/Home Management, Joint Mobility, Strengthening, Functional Mobility Training Plan for Next Visit: Bed Mobility, Dressing Training, Fall Prevention, Grooming Training, Standing Balance Home Environment Patient Lives With: Spouse ( and 2 adult kids) Assistance Available: Part-Time Entry To Home: Stairs, With Rail Number Of Stairs Into Home: 3 Number Of Stairs To Bed/Bath: 13 Stairs to Bed/Bath with: Unilateral Rail Tub/Shower Type: walk in shower Laundry: first floor Equipment Owned: Cane, Walker- Wheeled Prior Functional Level: Within Functional Limits Prior Functional Level Comments: Ind self care and functional mobilty, self employed with food truck, +driving Baseline Cognition: Oriented to self, Oriented to place, Oriented to time, Oriented to situation 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 I can go to rehab somewhere. I'm definately not where I normally at. i can do everything. CURRENT FUNCTIONAL STATUS: Most recent performance Current Activities of Daily Living Assist Level Additional Information Feeding Modified Independent, Additional Information per clnical judgement secondary to R UE deficits Grooming Contact Guard Assistance, Additional Information to min assist secondary to decreased standing balance Bathing Upper Body Contact Guard Assistance, Additional Information per clinical judgement while seated Bathing Lower Body Contact Guard Assistance, Additional Information per clinical judgement while seated Dressing Upper Body Contact Guard Assistance, Additional Information per clinical judgement while seated Dressing Lower Body Contact Guard Assistance, Additional Information while seated at EOB to don/doff socks Toileting Contact Guard Assistance, Additional Information while standing at commode, instruction on hand placement to assist with balance using grab bar to assist, patient with decreased standing balance with pant management Instrumental Activities of Daily Living Assist Level Additional Information Meal/Beverage Prep Cleaning Laundry Medication Management with Strategies Functional Mobility Assist Level Additional Information Rolling Supine to Sit Stand By Assistance, Additional Information HOB raised Sit to Supine Scooting Stand By Assistance Sit to Stand Contact Guard Assistance Stand to Sit Contact Guard Assistance Bed to Chair Contact Guard Assistance, Additional Information Stepping Gait Belt decreased dynamic standing balance Toilet/Commode Contact Guard Assistance, Additional Information while standing at commode Shower Functional Mobility Contact Guard Assistance Blank rene indicate activity not attempted Balance: Static Sitting, Dynamic Sitting, Static Standing, Dynamic Standing Static Sitting Balance: Good Patient able to mainta (more content not included)... [facility] THERAPY NT HNO ID: [id number] Author: Shania Mitchell, [facility] Service: Speech/Swallow Author Type: Speech Language Pathologist Type: Therapy (PT/OT/Speech/Resp) Filed: 03/06/2023 12:09 PM Note Text: Speech Therapy Speech Evaluation, Clinical Swallow Evaluation SERVICE DATE: 03/06/2023 SERVICE TIME: 947 to 1035 ROOM: [place] [address] IMPRESSION: Communication deficits identified: Cognitive deficits, Dysarthria of speech Swallow Deficits Identified / Suspected: Oropharyngeal dysphagia Diet Recommendations: Regular Consistency, Thin Liquids IDDSI Level 0 Swallowing Precautions Recommendations: Controlled Volume with each drink presentation, Check oral cavity for remaining food, Alternate bites and sips, Feed / Eat at a slow rate, Self-monitoring, Small Bite/Sip, Pulmonary monitoring Nursing Recommendations: Allow for extended time for thought processing, Encourage a reduced rate of speech, Reinforce use of swallowing strategies, Reinforce an upright position during / after all PO, Routine Rigid Oral Hygiene Recommended Discharge Disposition: Continued Skilled Speech Therapy Reason for Hospital Admission: 53 year old admitted with slurred speech, right arm and leg weakness; MRI indicated acute L infarction (CVA) Rehabilitation Precautions: Communication Deficits, Aspiration Precautions Isolation Type: None Reason for Speech Therapy Consult: Eval for speech/language and swallowing per CVA protocol Relevant Past Medical History: HTN Response to Therapy Interventions: Aspiration Risk, Good Participation in activities, Receptive Family / Caregivers, Increased knowledge and Awareness to Deficits Continue skilled [employer] services due to : Communication difficulties, Dysphagia, Education / training needs, Safety concerns Speech Therapy Problem List: Dysphagia, Cognitive-Linguistic Impairment, Dysarthria Patient Report: 'My speech is the problem and my right side' Current Status Oral Hygiene: Clear, moist oral cavity, Labial escape from right side of mouth Dentition: Retains Natural Dentition Current Feeding Method: Oral Current Diet Textures: Regular Consistency, Thin Liquids IDDSI Level 0 Current Level Of Communication: Verbal, Dysarthria Current Management Of Secretions: (able to produce strong throat clear/cough) Oral Motor Exam: Within Functional Limits Except Facial Symmetry Impaired: Right Lingual ROM Impaired: Right Cognition Cognitive Status: Within Functional Limits For Current Session Except Cognitive Deficits: Memory Deficits, Executive Function Deficit Memory Deficits: Immediate, Short Term Immediate Memory Comments: mild deficits Short Term Memory Comments: mild-moderate deficits Executive Function Deficits: Convergent Naming, Math Calculations Convergent Naming Comments : moderate deficits Math Calculations Comments : serial subtraction-mild deficits, problem solving in response to money situations moderate deficits Cognitive Clinical Tests and Screens: SLUMS SLUMS Level of Education: High school Orientation (week): 1 Orientation (year): 1 Orientation (state): 1 Calculations: 0 Namin Short-Term Memory: 3 Attention/Sequencin Visual-Spatial Skills (clock): 2 Visual-Spatial Skills: 1 Attention/Memory: 4 SLUMS Total Score ( /30): 17 Speech/Voice/Language Speech Production: Within Functional Limits Except Dysarthria: Blended Word Boundaries, Decreased Intelligibility, Intelligibility Sentence, Intelligibility of Conversation Intelligibility - Sentence (%): 85 Intelligibility Conversation %: 80 Expressive and Receptive Language: Within Functional Limits Except Auditory Comprehension Deficits: Auditory Comprehension Deficit Comments Auditory Comprehension Deficit Comments: requires clarification of questions presented by ST Verbal Expression Deficits: Convergent Naming, Verbal Expression Deficit Comments Verbal Expression Deficit Comments: intermittent minimal deficits with word finding noted, pt denies difficulty at this time Convergent Naming - (%): 50 % Swallow Position Of Patient During Assessment: Upright In Bed Consistencies Presented: Thin Liquids IDDSI Level 0, Pureed IDDSI Level 4, Solid Response to Consistencies Presented: -Agreeable to consume trials of p.o. for participation with evaluation; -coughing noted with Bend Protocol and post swallow with yaquelin cracker; -slightly impulsive rate with solid trial; -pt endorses 'always coughing when taking too much liquid at one time'; -endorses 'sticking' in throat with yaquelin cracker, reports due to 'dryness'; -minimal residuals on lingual base cleared via subsequent swallow; -pt denies any difficulty with swallowing at am meal this date Compensatory Strategies Utilized During Assessment: Double swallows, Alternate bites and sips, Extended time between presentations, Self-monitoring, Small Bite/Sip, Check oral cavity for remaining food Clinical Swallo (more content not included)... [facility] HNO ID: [id number] Author: EULOGIO Matamoros Service: Radiology Author Type: Heavy Equipment Sales Associate Type: [facility] Filed: 03/05/2023 7:10 PM Note Text: Radiology Service Progress Note PATIENT NAME: Iron Conde DATE OF SERVICE: March 05, 2023 TIME: 7:09 PM PATIENT IDENTITY VERIFICATION COMPLETED USING TWO (2) IDENTIFIERS: Name and Date of confirmed by patient verbally and Name and Date of confirmed by identification band. FALL SCREENING: Has the patient had 2 falls in the last year or 1 fall with injury or currently using an Ambulatory Assistive Device (Walker, Cane, Wheelchair, Crutches, etc.)? Inpatient: Screened on floor PATIENT GENDER DATA: Male PATIENT RELEVANT IMPLANT DATA REVIEWED: Yes RADIOLOGY DEPARTMENT: MR; Exam(s) Completed: Head: Routine Brain PERIPHERAL IV DATA: Inpatient: see LDA documentation SIGNED BY: EULOGIO Matamoros March 05, 2023 7:09 PM [facility] HNO ID: [id number] Author: Alonso Canada RT(R) Service: Radiology Author Type: Technologist Type: [facility] Filed: 03/05/2023 2:08 PM Note Text: Radiology Service Progress Note DATE OF SERVICE: March 05, 2023 TIME: 1:52 PM PATIENT IDENTITY VERIFICATION COMPLETED USING TWO (2) STANDARD IDENTIFIERS: Name and Date of confirmed by patient verbally and Name and Date of confirmed by identification band. FALL SCREENING: Has the patient had 2 falls in the last year or 1 fall with injury or currently using an Ambulatory Assistive Device (Walker, Cane, Wheelchair, Crutches, etc.)? Emergency Room Patient: Screened in ED PATIENT GENDER DATA: Male PATIENT RELEVANT IMPLANT DATA REVIEWED: Not Applicable ALLERGIES: Reviewed and unchanged CONTRAST ALLERGY: NO. EXAM: CT -CONTRAST INDUCED NEPHROPATHY RISK FACTORS: Patient age > 60 years CREATININE: Creatinine Date Value Ref Range Status 03/05/2023 1.07 0.73 - 1.22 mg/dL Final Estimated Glomerular Filtration Rate Date Value Ref Range Status 03/05/2023 84 >=60 mL/min/1.73m? Final Comment: Estimated Glomerular Filtration Rate (eGFR) is calculated using the 2020 CKD-EPI creatinine equation. This equation utilizes serum creatinine, sex, and age as parameters. The creatinine assay has traceable calibration to isotope dilution-mass spectrometry. Refer to KDIGO guidelines for clinical interpretation. In patients with unstable renal function, e.g. those with acute kidney injury, the eGFR may not accurately reflect actual GFR. P.O.C.T. RESULTS: POC done: Yes, See Lab Tab March 05, 2023 TREATMENT: N/A PERIPHERAL IV DATA: Inpatient - refer to LDA documentation RADIOLOGY DEPARTMENT: CT; Exam(s) Completed: Brain , CTA Brain , and CTA Neck SIGNATURE: Alonso Canada, RT(R) PATIENT NAME: Iron Conde DATE: March 05, 2023 TIME: 1:52 PM Normal [facility] CBC W Auto Differential pane l (Bld)on 03-05-2023 Basophils (Bld) [#/Vol] 0.04 10*3/uL Normal <0.11 [facility] Comment on above: Order Comment: Jaxson knapp Type: BLOOD SPECIMEN Ordering Facility: [facility] Address: [address] [place] [address] Performed By: #### B ETA2G, BETA2M, 5076-5, YING MOFFETT #### [facility] CLIA [id number] [address] [place] [address] [place] Basophils/100 WBC (Bld) 0.4 % Normal [facility] Comment on above: Order Comment: Speci ra Type: BLOOD SPECIMEN Ordering Facility: [facility] [place] Address: [address] [place] [address] Performed By: #### B ETA2G, BETA2M, 5076-5, YING MOFFETT #### [facility] CLIA [id number] [address] [place] [address] [place] Differential cell count method Nom (Bld) Auto Normal [facility] Comment on above: Order Comment: Speci men Type: BLOOD SPECIMEN Ordering Facility: [facility] [place] Address: [address] [place], [place] [id number] Performed By: #### B ETA2G, BETA2M, 5076-5, YING MOFFETT #### [facility] CLIA [id number] [address] [place] [address] [place] Eosinophils (Bld) [#/Vol] 0.23 10*3/uL Normal <0.46 [facility] Comment on above: Order Comment: Speci men Type: BLOOD SPECIMEN Ordering Facility: [facility] [place] Address: [address] [place], [place] [id number] Performed By: #### B ETA2G, BETA2M, 5076-5, YING MOFFETT #### [facility] CLIA [id number] [address] [place] [address] [place] Eosinophils/100 WBC (Bld) 2.5 % Normal [facility] Comment on above: Order Comment: Speci men Type: BLOOD SPECIMEN Ordering Facility: [facility] [place] Address: [address] [place], [place] [id number] Performed By: #### B ETA2G, BETA2M, 5076-5, YING MOFFETT #### [facility] CLIA [id number] [address] [place] [address] [place] Erythrocyte distribution width (RBC) [Ratio] 12.3 % Normal 11.5-15.0 [facility] Comment on above: Order Comment: Speci men Type: BLOOD SPECIMEN Ordering Facility: [facility] [place] Address: [address] [place], [place] [id number] Performed By: #### B ETA2G, BETA2M, 5076-5, YING MOFFETT #### [facility] CLIA [id number] [address] [place] [address] [place] Hematocrit (Bld) [Volume fraction] 45.8 % Normal 39.0-51.0 [facility] Comment on above: Order Comment: Speci men Type: BLOOD SPECIMEN Ordering Facility: [facility] [place] Address: [address] [place], [place] [id number] Performed By: #### B ETA2G, BETA2M, 5076-5, YING MOFFETT #### [facility] CLIA [id number] [address] [place] [address] [place] Hemoglobin (Bld) [Mass/Vol] 16.0 g/dL Normal 13.0-17.0 [facility] Comment on above: Order Comment: Speci men Type: BLOOD SPECIMEN Ordering Facility: [facility] [place] Address: [address] Performed By: #### B ETA2G, BETA2M, 5076-5, YING MOFFETT #### [facility] CLIA [id number] [address] [place] [address] [place] Immature granulocytes (Bld) [#/Vol] 0.04 10*3/uL Normal <0.10 [facility] Comment on above: Order Comment: Speci men Type: BLOOD SPECIMEN Ordering Facility: [facility] [place] Address: [address] [place] [address] Performed By: #### B ETA2G, BETA2M, 5076-5, YING MOFFETT #### [facility] CLIA [id number] [facility] [place] [address] [place] Immature granulocytes/100 WBC (Bld) 0.4 % Normal [facility] Comment on above: Order Comment: Speci men Type: BLOOD SPECIMEN Ordering Facility: [facility] [place] Address: [address] [place] [address] Performed By: #### B ETA2G, BETA2M, 5076-5, YING MOFFETT #### [facility] CLIA [id number] [address] [place] [address] [place] Lymphocytes (Bld) [#/Vol] 2.19 10*3/uL Normal 1.00-4.00 [facility] Comment on above: Order Comment: Speci men Type: BLOOD SPECIMEN Ordering Facility: [facility] [place] Address: [place] [address] Performed By: #### B ETA2G, BETA2M, 5076-5, YING MOFFETT #### [facility] CLIA [id number] [address] [place] [address] [place] Lymphocytes/100 WBC (Bld) 23.9 % Normal [facility] Comment on above: Order Comment: Speci men Type: BLOOD SPECIMEN Ordering Facility: [facility] [place] Address: [address] [place], [place] [id number] Performed By: #### B ETA2G, BETA2M, 5076-5, YING MOFFETT #### [facility] CLIA [id number] [address] [place] [address] [place] MCH (RBC) [Entitic mass] 30.4 pg Normal 26.0-34.0 [facility] Comment on above: Order Comment: Speci men Type: BLOOD SPECIMEN Ordering Facility: [facility] [place] Address: [address] [place], [place] [id number] Performed By: #### B ETA2G, BETA2M, 5076-5, YING MOFFETT #### [facility] CLIA [id number] [address] [place] [address] [place] MCHC (RBC) [Mass/Vol] 34.9 g/dL Normal 30.5-36.0 [facility] Comment on above: Order Comment: Speci men Type: BLOOD SPECIMEN Ordering Facility: [facility] [place] Address: [address] [place], [place] [id number] Performed By: #### B ETA2G, BETA2M, 5076-5, YING MOFFETT #### [facility] CLIA [id number] [address] [place] MCV (RBC) [Entitic vol] 87.1 fL Normal 80.0-100.0 [facility] Comment on above: Order Comment: Speci men Type: BLOOD SPECIMEN Ordering Facility: [facility] [place] Address: [address] [place] [address] Performed By: #### B ETA2G, BETA2M, 5076-5, YING MOFFETT #### [facility] CLIA [id number] [address] [place] [address] [place] Monocytes (Bld) [#/Vol] 0.58 10*3/uL Normal <0.87 [facility] Comment on above: Order Comment: Speci men Type: BLOOD SPECIMEN Ordering Facility: [facility] [place] Address: [address] [place], [place] [id number] Performed By: #### B ETA2G, BETA2M, 5076-5, YING MOFFETT #### [facility] CLIA [id number] [address] [place] [address] [place] Monocytes/100 WBC (Bld) 6.3 % Normal [facility] Comment on above: Order Comment: Speci men Type: BLOOD SPECIMEN Ordering Facility: [facility] [place] Address: [address] [place], [place] [phone] Performed By: #### B ETA2G, BETA2M, 5076-5, YING MOFFETT #### [facility] CLIA [id number] [address] [place] [address] [place] Neutrophils (Bld) [#/Vol] 6.08 10*3/uL Normal 1.45-7.50 [facility] Comment on above: Order Comment: Speci men Type: BLOOD SPECIMEN Ordering Facility: [facility] [place] Address: [address] [place] [address] Performed By: #### B ETA2G, BETA2M, 5076-5, CARDIYING Burrell #### [facility] CLIA [id number] [address] [place] [address] [place] Neutrophils/100 WBC (Bld) 66.5 % Normal [facility] Comment on above: Order Comment: Speci men Type: BLOOD SPECIMEN Ordering Facility: [facility] [place] Address: [place] [address] Performed By: #### B ETA2G, BETA2M, 5076-5, YING MOFFETT #### [facility] CLIA [id number] [address] [place] [address] [place] Nucleated RBC (Bld) [#/Vol] 10*3/uL Normal <0.01 [facility] Comment on above: Order Comment: Speci men Type: BLOOD SPECIMEN Ordering Facility: [facility] [place] Address: [address] [place], [place] [phone] Performed By: #### B ETA2G, BETA2M, 5076-5, YING MOFFETT #### [facility] CLIA [id number] [address] [place] [address] [place] Nucleated RBC/100 WBC (Bld) [Ratio] 0.0 /100 WBC Normal [facility] Comment on above: Order Comment: Speci men Type: BLOOD SPECIMEN Ordering Facility: [facility] [place] Address: [place] [address] Performed By: #### B ETA2G, BETA2M, 5076-5, YING MOFFETT #### [facility] CLIA [id number] [address] [place] [address] [place] Platelet mean volume (Bld) [Entitic vol] 9.5 fL Normal 9.0-12.7 [facility] Comment on above: Order Comment: Speci men Type: BLOOD SPECIMEN Ordering Facility: [facility] [place] Address: [place] [address] Performed By: #### B ETA2G, BETA2M, 5076-5, YING MOFFETT #### [facility] CLIA [id number] [address] [place] [address] [place] Platelets (Bld) [#/Vol] 408 10*3/uL High 150-400 [facility] Comment on above: Order Comment: Speci men Type: BLOOD SPECIMEN Ordering Facility: [facility] [place] Address: [address] [place] [address] Performed By: #### B ETA2G, BETA2M, 5076-5, CARDIGNICKM #### [facility] CLIA [id number] [address] [place] [address] [place] RBC (Bld) [#/Vol] 5.26 10*6/uL Normal 4.20-6.00 [facility] Comment on above: Order Comment: Speci men Type: BLOOD SPECIMEN Ordering Facility: [facility] [place] Address: [address] [place] [address] Performed By: #### B ETA2G, BETA2M, 5076-5, CARDIYING Burrell #### [facility] CLIA [id number] [address] [place] [address] [place] WBC (Bld) [#/Vol] 9.16 10*3/uL Normal 3.70-11.00 [facility] Comment on above: Order Comment: Speci men Type: BLOOD SPECIMEN Ordering Facility: [facility] [place] Address: [address] [place] [address] Performed By: #### B ETA2G, BETA2M, 5076-5, CARDINICK BurrellM #### [facility] CLIA [id number] [address] [place] [address] [facility] [place] CK SerPl-cCncon 03-05-2023 CK [Catalytic activity/Vol] 126 U/L Normal 51-298 [facility] Comment on above: Order Comment: Speci men Type: BLOOD SPECIMEN Ordering Facility: [facility] [place] Address: [address] [place] [address] Performed By: #### B ETA2G, BETA2M, 5076-5, CARDIG, CARDIM #### [facility] CLIA [id number] [address] CK TOTAL AND CK-MBon 023 CK [Catalytic activity/Vol] 105 U/L Normal 51-298 [facility] Comment on above: Order Comment: Speci men Type: BLOOD SPECIMEN Ordering Facility: [facility] [place] Address: [address] [place] [address] Performed By: #### B ETA2G, BETA2M, 5076-5, YING MOFFETT #### [facility] CLIA [id number] [address] [place] [address] [place] CK.MB [Mass/Vol] 1.9 ng/mL Normal <7.8 [facility] Comment on above: Order Comment: Speci men Type: BLOOD SPECIMEN Ordering Facility: [facility] [place] Address: [address] [place] [address] Performed By: #### B ETA2G, BETA2M, 5076-5, YING MOFFETT #### [facility] CLIA [id number] [address] [place] [address] OF [facility] CK.MB [Ratio] 180 {ratio} Normal <=4.0 [facility] Comment on above: Order Comment: Speci men Type: BLOOD SPECIMEN Ordering Facility: [facility] [place] Address: [address] [place] [address] Performed By: #### B ETA2G, BETA2M, 5076-5, CARDIYING Burrell #### [facility] CLIA [id number] [address] [place] [address] BRAIN WO IVCONon 03-05-[address] BRAIN WO IVCON * * *Final Report* * * DATE OF EXAM: Mar 05 2023 2:08PM [facility] 0504 - CT BRAIN WO IVCON / PROCEDURE REASON: Neuro deficit, acute, stroke suspected * * * * Physician Interpretation * * * * EXAMINATION: CTA NECK W IVCON, CTA HEAD W IVCON, CT BRAIN WO IVCON HISTORY: Neuro deficit, acute, stroke suspected TECHNIQUE: Routine CT of the brain without IV contrast. Next, high resolution axial images were obtained through the head, neck and superior mediastinum following bolus administration of intravenous contrast for CT angiography. 3D maximum intensity projection images were created, reviewed and archived . MQ: CTABNPlus_4 Contrast: 80 mL Omnipaque [address] Radiation dose: Integrated Dose-Length Product (DLP) for this visit = 1339 mGy*cm. CT Dose Reduction Employed: Automated exposure control(AEC) and iterative recon COMPARISON: None. RESULT: BRAIN: Acute change: No evidence of an acute infarct or other acute parenchymal process. ASPECT Score = 10 Hemorrhage: No evidence of acute intracranial hemorrhage. ECASS hemorrhagic transformation score: Not Applicable Mass Lesion / Mass Effect: There is no evidence of an intracranial mass or extra-axial fluid collection. No significant mass effect. Chronic change: None apparent. Parenchyma: There is no significant volume loss. The brain parenchyma is otherwise within normal limits for age. Ventricles: The ventricles are within normal limits of size and configuration for age. Other: The visualized paranasal sinuses are grossly clear. The skull and visualized extracranial soft tissues are grossly normal. NECK: Soft tissues: The soft tissue planes are maintained throughout. No evidence of a soft tissue mass in the neck or superior mediastinum. No significant lymphadenopathy is seen. Spine: Alignment is normal. Mild degenerative changes are present. Lung apices: The visualized lung apices are clear. CT ARTERIOGRAM: Extracranial Circulation: Aortic Arch: There is a normal branching pattern from the aortic arch. There is no significant stenosis in the proximal brachiocephalic vessels. Carotid Stenosis: Right Common: No significant stenosis. Right Internal Carotid Plaque: No significant plaque formation. Right Internal Carotid Stenosis (% by NASCET Criteria): 0 Left Common: No significant stenosis. Left Internal Carotid Plaque: No significant plaque formation. Left Internal Carotid Stenosis (% by NASCET Criteria): 0 Cervical Vertebral Arteries: Patency: Bilateral Dominance: Left Intracranial Circulation: No intracranial arterial stenosis, aneurysm, or other lesion is identified. Bilateral posterior communicating arteries are not visualized. An anterior communicating artery is present. The intracranial internal carotid arteries and the proximal anterior, middle and posterior cerebral arteries appear normal. The left vertebral artery is dominant. The intracranial vertebral arteries and the basilar artery appear normal. The visualized predominantly proximal segments of the bilateral PICAs, AICAs and SCAs appear normal. There is no evidence of flow-limiting stenosis. The visualized dural venous sinuses are patent. Oyster Bed Worker (topogram) images: No significant findings. IMPRESSION: No acute findings. No evidence of acute infarction, intracranial hemorrhage or intracranial mass lesion. No evidence of hemodynamically significant stenosis, intraluminal filling defect, abrupt vessel occlusion, aneurysm or vascular malformation in the intracranial and extracranial arterial vasculature. Arterial blood flow was measured to detect acute large vessel occlusion by computer aided detection software: Not Performed. Concordance between software and imaging review: Not Applicable. Shoe Cutter: PSCArmida Transcribe Date/Time: Mar 05 2023 2:09P Dictated by : AUDREY KOROMA MD This examination was interpreted and the report reviewed and electronically signed by: AUDREY KOROMA MD on Mar 05 2023 2:18PM EST [id number] N [facility] CTA HEAD W IVCONon 3 CTA HEAD W IVCON * * *Final Report* * * DATE OF EXAM: Mar 05 2023 2:08PM [facility] 0022 - CTA HEAD W IVCON / PROCEDURE REASON: Neuro deficit, acute, stroke suspected * * * * Physician Interpretation * * * * EXAMINATION: CTA NECK W IVCON, CTA HEAD W IVCON, CT BRAIN WO IVCON HISTORY: Neuro deficit, acute, stroke suspected TECHNIQUE: Routine CT of the brain without IV contrast. Next, high resolution axial images were obtained through the head, neck and superior mediastinum following bolus administration of intravenous contrast for CT angiography. 3D maximum intensity projection images were created, reviewed and archived . MQ: CTABNPlus_4 Contrast: 80 mL Omnipaque [address] Radiation dose: Integrated Dose-Length Product (DLP) for this visit = 1339 mGy*cm. CT Dose Reduction Employed: Automated exposure control(AEC) and iterative recon COMPARISON: None. RESULT: BRAIN: Acute change: No evidence of an acute infarct or other acute parenchymal process. ASPECT Score = 10 Hemorrhage: No evidence of acute intracranial hemorrhage. ECASS hemorrhagic transformation score: Not Applicable Mass Lesion / Mass Effect: There is no evidence of an intracranial mass or extra-axial fluid collection. No significant mass effect. Chronic change: None apparent. Parenchyma: There is no significant volume loss. The brain parenchyma is otherwise within normal limits for age. Ventricles: The ventricles are within normal limits of size and configuration for age. Other: The visualized paranasal sinuses are grossly clear. The skull and visualized extracranial soft tissues are grossly normal. NECK: Soft tissues: The soft tissue planes are maintained throughout. No evidence of a soft tissue mass in the neck or superior mediastinum. No significant lymphadenopathy is seen. Spine: Alignment is normal. Mild degenerative changes are present. Lung apices: The visualized lung apices are clear. CT ARTERIOGRAM: Extracranial Circulation: Aortic Arch: There is a normal branching pattern from the aortic arch. There is no significant stenosis in the proximal brachiocephalic vessels. Carotid Stenosis: Right Common: No significant stenosis. Right Internal Carotid Plaque: No significant plaque formation. Right Internal Carotid Stenosis (% by NASCET Criteria): 0 Left Common: No significant stenosis. Left Internal Carotid Plaque: No significant plaque formation. Left Internal Carotid Stenosis (% by NASCET Criteria): 0 Cervical Vertebral Arteries: Patency: Bilateral Dominance: Left Intracranial Circulation: No intracranial arterial stenosis, aneurysm, or other lesion is identified. Bilateral posterior communicating arteries are not visualized. An anterior communicating artery is present. The intracranial internal carotid arteries and the proximal anterior, middle and posterior cerebral arteries appear normal. The left vertebral artery is dominant. The intracranial vertebral arteries and the basilar artery appear normal. The visualized predominantly proximal segments of the bilateral PICAs, AICAs and SCAs appear normal. There is no evidence of flow-limiting stenosis. The visualized dural venous sinuses are patent. Oyster Bed Worker (topogram) images: No significant findings. IMPRESSION: No acute findings. No evidence of acute infarction, intracranial hemorrhage or intracranial mass lesion. No evidence of hemodynamically significant stenosis, intraluminal filling defect, abrupt vessel occlusion, aneurysm or vascular malformation in the intracranial and extracranial arterial vasculature. Arterial blood flow was measured to detect acute large vessel occlusion by computer aided detection software: Not Performed. Concordance between software and imaging review: Not Applicable. Shoe Cutter: PSCArmida Transcribe Date/Time: Mar 05 2023 2:09P Dictated by : AUDREY KOROMA MD This examination was interpreted and the report reviewed and electronically signed by: AUDREY KOROMA MD on Mar 05 2023 2:18PM EST [id number] Normal [facility] CTA NECK W IVCONon 3 CTA NECK W IVCON * * *Final Report* * * DATE OF EXAM: Mar 05 2023 2:08PM [facility] 0024 - CTA NECK W IVCON / PROCEDURE REASON: Neuro deficit, acute, stroke suspected * * * * Physician Interpretation * * * * EXAMINATION: CTA NECK W IVCON, CTA HEAD W IVCON, CT BRAIN WO IVCON HISTORY: Neuro deficit, acute, stroke suspected TECHNIQUE: Routine CT of the brain without IV contrast. Next, high resolution axial images were obtained through the head, neck and superior mediastinum following bolus administration of intravenous contrast for CT angiography. 3D maximum intensity projection images were created, reviewed and archived . MQ: CTABNPlus_4 Contrast: 80 mL Omnipaque [address] Radiation dose: Integrated Dose-Length Product (DLP) for this visit = 1339 mGy*cm. CT Dose Reduction Employed: Automated exposure control(AEC) and iterative recon COMPARISON: None. RESULT: BRAIN: Acute change: No evidence of an acute infarct or other acute parenchymal process. ASPECT Score = 10 Hemorrhage: No evidence of acute intracranial hemorrhage. ECASS hemorrhagic transformation score: Not Applicable Mass Lesion / Mass Effect: There is no evidence of an intracranial mass or extra-axial fluid collection. No significant mass effect. Chronic change: None apparent. Parenchyma: There is no significant volume loss. The brain parenchyma is otherwise within normal limits for age. Ventricles: The ventricles are within normal limits of size and configuration for age. Other: The visualized paranasal sinuses are grossly clear. The skull and visualized extracranial soft tissues are grossly normal. NECK: Soft tissues: The soft tissue planes are maintained throughout. No evidence of a soft tissue mass in the neck or superior mediastinum. No significant lymphadenopathy is seen. Spine: Alignment is normal. Mild degenerative changes are present. Lung apices: The visualized lung apices are clear. CT ARTERIOGRAM: Extracranial Circulation: Aortic Arch: There is a normal branching pattern from the aortic arch. There is no significant stenosis in the proximal brachiocephalic vessels. Carotid Stenosis: Right Common: No significant stenosis. Right Internal Carotid Plaque: No significant plaque formation. Right Internal Carotid Stenosis (% by NASCET Criteria): 0 Left Common: No significant stenosis. Left Internal Carotid Plaque: No significant plaque formation. Left Internal Carotid Stenosis (% by NASCET Criteria): 0 Cervical Vertebral Arteries: Patency: Bilateral Dominance: Left Intracranial Circulation: No intracranial arterial stenosis, aneurysm, or other lesion is identified. Bilateral posterior communicating arteries are not visualized. An anterior communicating artery is present. The intracranial internal carotid arteries and the proximal anterior, middle and posterior cerebral arteries appear normal. The left vertebral artery is dominant. The intracranial vertebral arteries and the basilar artery appear normal. The visualized predominantly proximal segments of the bilateral PICAs, AICAs and SCAs appear normal. There is no evidence of flow-limiting stenosis. The visualized dural venous sinuses are patent. Oyster Bed Worker (topogram) images: No significant findings. IMPRESSION: No acute findings. No evidence of acute infarction, intracranial hemorrhage or intracranial mass lesion. No evidence of hemodynamically significant stenosis, intraluminal filling defect, abrupt vessel occlusion, aneurysm or vascular malformation in the intracranial and extracranial arterial vasculature. Arterial blood flow was measured to detect acute large vessel occlusion by computer aided detection software: Not Performed. Concordance between software and imaging review: Not Applicable. Shoe Cutter: PSCB Transcribe Date/Time: Mar 05 2023 2:09P Dictated by : AUDREY KOROMA MD This examination was interpreted and the report reviewed and electronically signed by: AUDREY KOROMA MD on Mar 05 2023 2:18PM EST [id number] Normal [facility] Comprehensive metabolic 2000 panelon 03-05-2023 Albumin [Mass/Vol] 4.6 g/dL Normal 3.9-4.9 [facility] Comment on above: Order Comment: Speci men Type: BLOOD SPECIMEN Ordering Facility: [facility] [place] Address: [address] [address] Performed By: #### B ETA2G, BETA2M, 5076-5, YING MOFFETT #### [facility] CLIA [id number] [address] [place] [address] [place] ALP [Catalytic activity/Vol] 54 U/L Normal 38-113 [facility] Comment on above: Order Comment: Speci men Type: BLOOD SPECIMEN Ordering Facility: [facility] [place] Address: [address] [place] [address] Performed By: #### B ETA2G, BETA2M, 5076-5, YING MOFFETT #### [facility] CLIA [id number] [address] [place] [address] [place] ALT [Catalytic activity/Vol] 26 U/L Normal 10-54 [facility] Comment on above: Order Comment: Speci men Type: BLOOD SPECIMEN Ordering Facility: [facility] [place] Address: [address] Performed By: #### B ETA2G, BETA2M, 5076-5, YING MOFFETT #### [facility] CLIA [id number] [address] [place] [address] [place] Anion gap [Moles/Vol] 10 mmol/L Normal 9-18 [facility] Comment on above: Order Comment: Speci men Type: BLOOD SPECIMEN Ordering Facility: [facility] [place] Address: [address] Performed By: #### B ETA2G, BETA2M, 5076-5, YING MOFFETT #### [facility] CLIA [id number] [facility] [place] [address] [place] AST [Catalytic activity/Vol] 23 U/L Normal 14-40 [facility] Comment on above: Order Comment: Speci men Type: BLOOD SPECIMEN Ordering Facility: [facility] [place] Address: [address] Performed By: #### B ETA2G, BETA2M, 5076-5, YING MOFFETT #### [facility] CLIA [id number] [address] [place] [address] [place] Bilirubin [Mass/Vol] 0.5 mg/dL Normal 0.2-1.3 [facility] Comment on above: Order Comment: Speci men Type: BLOOD SPECIMEN Ordering Facility: [facility] [place] Address: [address] [id number] Performed By: #### B ETA2G, BETA2M, 5076-5, YING MOFFETT #### [facility] CLIA [id number] [address] [place] [address] [place] Calcium [Mass/Vol] 9.6 mg/dL Normal 8.5-10.2 [facility] Comment on above: Order Comment: Speci men Type: BLOOD SPECIMEN Ordering Facility: [facility] [place] Address: [address] [place] [address] Performed By: #### B ETA2G, BETA2M, 5076-5, YING MOFFETT #### [facility] CLIA [id number] [address] [place] [address] [place] Chloride [Moles/Vol] 102 mmol/L Normal 97-105 [facility] Comment on above: Order Comment: Speci men Type: BLOOD SPECIMEN Ordering Facility: [facility] [place] Address: [address] [place] [address] Performed By: #### B ETA2G, BETA2M, 5076-5, YING MOFFETT #### [facility] CLIA [id number] [address] [place] [address] [place] CO2 [Moles/Vol] 26 mmol/L Normal 22-30 [facility] Comment on above: Order Comment: Speci men Type: BLOOD SPECIMEN Ordering Facility: [facility] [place] Address: [address] [place] [address] Performed By: #### B ETA2G, BETA2M, 5076-5, YING MOFFETT #### [facility] CLIA [id number] [address] [place] [address] [place] Creatinine [Mass/Vol] 1.07 mg/dL Normal 0.73-1.22 [facility] Comment on above: Order Comment: Speci men Type: BLOOD SPECIMEN Ordering Facility: [facility] [place] Address: [address] [place], [place] [id number] Performed By: #### B ETA2G, BETA2M, 5076-5, YING MOFFETT #### [facility] CLIA [id number] [address] [place] [address] [place] ESTIMATED GLOMERULAR FILTRATION RATE 84 mL/min/1.73m??? Normal >=60 [facility] Comment on above: Order Comment: Speci men Type: BLOOD SPECIMEN Ordering Facility: [facility] [place] Address: [facility] [place] [address] Result Comment: Tara mated Glomerular Filtration Rate (eGFR) is calculated using the 2020 CKD-EPI creatinine equation. This equation utilizes serum creatinine, sex, and age as parameters. The creatinine assay has traceable calibration to isotope dilution-mass spectrometry. Refer to KDIGO guidelines for clinical interpretation. In patients with unstable renal function, e.g. those with acute kidney injury, the eGFR may not accurately reflect actual GFR. Performed By: #### B ELZA BETA2M, 5076-5, YING MOFFETT #### [facility] CLIA [id number] [address] [place] [address] [place] Glucose [Mass/Vol] 159 mg/dL High 74-99 [facility] Comment on above: Order Comment: Jaxson knapp Type: BLOOD SPECIMEN Ordering Facility: [facility] [place] Address: [address] [phone] Result Comment: The [place] Diabetes Association (ADA) provides guidance for cutoff values for fasting glucose and random glucose. The ADA defines fasting as no caloric intake for at least 8 hours. Fasting plasma glucose results between 100 to 125 mg/dL indicate increased risk for diabetes (prediabetes). Fasting plasma glucose results greater than or equal to 126 mg/dL meet the criteria for diagnosis of diabetes. In the absence of unequivocal hyperglycemia, results should be confirmed by repeat testing. In a patient with classic symptoms of hyperglycemia or hyperglycemic crisis, random plasma glucose results greater than or equal to 200 mg/dL meet the criteria for diagnosis of diabetes. Reference: Standards of Medical Care in Diabetes 2016, [place] [employer] Association. Diabetes Care. 2016.39(Suppl 1). Performed By: #### B ETA2G BETA2M, 5076-5, YING MOFFETT #### [facility] CLIA [id number] [address] [place] [address] [place] Potassium [Moles/Vol] 4.1 mmol/L Normal 3.7-5.1 [facility] Comment on above: Order Comment: Jaxson knapp Type: BLOOD SPECIMEN Ordering Facility: [facility] [place] Address: [address] [phone] Performed By: #### B ETA2G, BETA2M, 5076-5, CARDIG, CARDIM #### [facility] CLIA [id number] [address] [place] [address] [place] Protein [Mass/Vol] 7.5 g/dL Normal 6.3-8.0 [facility] Comment on above: Order Comment: Speci men Type: BLOOD SPECIMEN Ordering Facility: [facility] [place] Address: [address] [place] [address] Performed By: #### B ETA2G, BETA2M, 5076-5, CARDIG, CARDIM #### [facility] [place] [id number] [address] [place] [address] [place] Sodium [Moles/Vol] 138 mmol/L Normal 136-144 [facility] Comment on above: Order Comment: Speci men Type: BLOOD SPECIMEN Ordering Facility: [facility] [place] Address: [address] [place], [place] [id number] Performed By: #### B ETA2G, BETA2M, 5076-5, CARDIG, CARDIM #### [facility] [place] [id number] [address] [place] [address] [place] Urea nitrogen [Mass/Vol] 13 mg/dL Normal 9-24 [facility] Comment on above: Order Comment: Speci men Type: BLOOD SPECIMEN Ordering Facility: [facility] [place] Address: [address] [place] [address] Performed By: #### B ETA2G, BETA2M, 5076-5, CARDIG, CARDIM #### [facility] CLIA [id number] [address] [place] [address] [place] ECG COMPLETEon 03-05-2023 ECG COMPLETE Ventricular Rate : 5 9 BPM Atrial Rate : 59 BPM P-R Interval : 140 ms QRS Duration : 92 ms Q-T Interval : 408 ms QTC Calculation(Bazett) : 403 ms Calculated P Bellona : 12 degrees Calculated R Bellona : -20 degrees Calculated T Bellona : 6 degrees SINUS BRADYCARDIA MODERATE VOLTAGE CRITERIA FOR LVH, MAY BE NORMAL VARIANT BORDERLINE ECG no STEMI Confirmed by Lety VALDIVIA, RENY ([id number]), web content editor NELLA HDZ ([id number]) on 03/05/2023 5:25:21 PM NAME : IRON CONDE PID : [id number] : 1970 Gender : Male Race : ORD : [id number] Procedure Date : Mar 05 2023 13:19:01 Edit Date : Mar 05 2023 17:25:21 Diagnosis: SINUS BRADYCARDIA MODERATE VOLTAGE CRITERIA FOR LVH, MAY BE NORMAL VARIANT BORDERLINE ECG no STEMI Confirmed by Lety VALDIVIA, RENY ([id number]), web content editor NELLA HDZ ([id number]) on 03/05/2023 5:25:21 PM Test Reason : Chest Pain Location : 1 : ER ED Overread By : Lety VALDIVIA ERIKA Edited By : NELLA HDZ Referred By : , Acquired by : [facility] ED NOTEon 03-05-2023 ED NOTE HNO ID: [id number] Author: Jovanna Fong RN Service: Nursing Author Type: Registered Nurse Type: ED Notes Filed: 03/05/2023 4:01 PM Note Text: Report called to LIZ Zendejas on [facility] ED NOTE HNO ID: [id number] Author: Jovanna Fong RN Service: Nursing Author Type: Registered Nurse Type: ED Notes Filed: 03/05/2023 3:37 PM Note Text: 10 minute warning called to [facility] ED PROV NOTEon 03-05-2023 ED PROV NOTE HNO ID: [id number] Author: Reny Valdivia MD Service: ? Author Type: Physician Type: ED Provider Notes Filed: 03/05/2023 3:05 PM Note Text: ED Provider Note Patient Name: Iron Conde : 1970 SERVICE DATE: 03/05/23 History Patient presents with: Potential Stroke Symptoms: Slurred speech, right sided arm and leg weakness since Monday at 2100. Patient with h/o HTN who presents with slurred speech, right facial droop, and right sided weakness since Monday at 9 pm. He reports noting slurred speech, right facial droop, and feeling off balance since Monday evening, two days ago. He denies headache, vision changes, chest pain, sob, abdominal pain, n/v/d, fever/chills, or recent illness. Patient takes Lisinopril/HCTZ daily for HTN. No past medical history on file. No past surgical history on file. No family history on file. Social History Tobacco Use - Smoking status: Not on file - Smokeless tobacco: Not on file Substance and Sexual Activity - Alcohol use: Not on file - Drug use: Not on file - Sexual activity: Not on file ALLERGIES No Known Allergies Review of Systems Constitutional: Negative for chills and fever. HENT: Negative for congestion, rhinorrhea, sinus pressure, sinus pain, sneezing and sore throat. Eyes: Negative for visual disturbance. Respiratory: Negative for cough and shortness of breath. Cardiovascular: Negative for chest pain, palpitations and leg swelling. Gastrointestinal: Negative for abdominal pain, diarrhea, nausea and vomiting. Genitourinary: Negative for difficulty urinating, dysuria, flank pain and hematuria. Musculoskeletal: Negative for back pain, myalgias and neck stiffness. Skin: Negative for pallor. Neurological: Positive for speech difficulty and weakness. Negative for dizziness, light-headedness and headaches. Psychiatric/Behaviora l: Negative for confusion. All other systems reviewed and are negative. Physical Exam Vitals [03/05/23 1303] BP Pulse Temp Temp src Resp SpO2 Weight Height 140/95 62 36.6 ?C (97.9 ?F) Temporal 16 98 % 95.3 kg (210 lb) -- Physical Exam Vitals and nursing note reviewed. Constitutional: General: He is not in acute distress. Appearance: Normal appearance. He is well-developed. HENT: Head: Normocephalic and atraumatic. Right Ear: External ear normal. Left Ear: External ear normal. Nose: Nose normal. Mouth/Throat: Mouth: Mucous membranes are moist. Pharynx: Oropharynx is clear. Eyes: Conjunctiva/sclera: Conjunctivae normal. Pupils: Pupils are equal, round, and reactive to light. Cardiovascular: Rate and Rhythm: Normal rate and regular rhythm. Heart sounds: Normal heart sounds. No murmur heard. Pulmonary: Effort: Pulmonary effort is normal. No respiratory distress. Breath sounds: Normal breath sounds. No stridor. No wheezing or rales. Abdominal: General: There is no distension. Palpations: Abdomen is soft. Tenderness: There is no abdominal tenderness. There is no rebound. Musculoskeletal: General: No tenderness. Normal range of motion. Cervical back: Normal range of motion and neck supple. Lymphadenopathy: Cervical: No cervical adenopathy. Skin: General: Skin is warm and dry. Findings: No erythema or rash. Neurological: Mental Status: He is alert and oriented to person, place, and time. Comments: See [facility] Psychiatric: Mood and Affect: Mood normal. Behavior: Behavior normal. Thought Content: Thought content normal. Judgment: Judgment normal. Diagnostic Testing ED Labs Ordered and Reviewed - No data to display Procedures ED Course / Clinical Impression Clinical Impressions as of 03/05/23 1506 Slurred speech Facial droop Right sided weakness Hypertension, unspecified type MDM / Disposition / Plan Nurses notes and old chart reviewed Patient here for slurred speech, right facial droop, and right sided weakness NIH 5, symptoms greater then 24 hours. He is NOT a TNK or endovascular candidate based on timing of symptoms. Ddx: CVA, intracranial bleed, seizure Work up in ED reveals EKG sinus bradycardia without ectopy, sensitive trop 6, <6, CMP normal except 159, WBC 9.16, HGB 16, CPK 126, normal CBC, Brain CT nad, CTA brain/neck no hemodynamically significant stenosis, occlusion, aneurysm While in ED, he was watched on monitor which showed sinus corey no ectopy. NIH 5 on exam. He is not TNK or endovascular candidate based on timing. Will admit for further CVA work up. D/w hospital medicine regarding admission. History and Record Review Clinical information obtained from an independent historian. History obtained from or confirmed by: spouse. Management I performed an independent interpretation of the following:telemetry and see ED course Telemetry: My interpretation is sinus corey Radiology Reports CT BRAIN WO IVCON Final Result IMPRESSION: No acute findings. No evidence of acute infar (more content not included)... Normal [facility] HIGH SENSITIVITY TROPONIN T (INITIAL)on 03-05-2023 HIGH SENSITIVITY HANNAH 6 ng/L Normal <12 [facility] Comment on above: Order Comment: Speci men Type: BLOOD SPECIMEN Ordering Facility: [facility] [place] Address: [address] [place] [phone] Result Comment: When assessing risk for acute coronary syndromes: In patients undergoing blood draw greater than or equal to 2 hours from symptom onset, with history of very low to moderate risk and non-ischemic ECG, an initial hs-Troponin T less than 12 ng/L AND a 1 hour delta hs-Troponin T less than 3 ng/L should be considered very low risk for 30 day MACE. Performed By: #### B ETA2G BETA2Jesus Alberto, 5076-5, YING MOFFETT #### [facility] CLIA [id number] [address] [place] [address] [place] HIGH SENSITIVITY TROPONIN T (SECOND)on 03-05-2023 HIGH SENSITIVITY HANNAH <6 Normal <12 [facility] Comment on above: Order Comment: Speci men Type: BLOOD SPECIMEN Ordering Facility: [facility] [place] Address: [address] [place] [address] Result Comment: When assessing risk for acute coronary syndromes: In patients undergoing blood draw greater than or equal to 2 hours from symptom onset, with history of very low to moderate risk and non-ischemic ECG, an initial hs-Troponin T less than 12 ng/L AND a 1 hour delta hs-Troponin T less than 3 ng/L should be considered very low risk for 30 day MACE. Performed By: #### B ETA2G BETA2Jesus Alberto, 5076-5, YING MOFFETT #### [facility] CLIA [id number] [address] [place] [address] [place] HISTORY PHYSICALon HISTORY PHYSICAL HNO ID: [id number] Author: Lissa Mirza DO Service: Hospital Medicine Author Type: Physician Type: HANDP Filed: 03/05/2023 6:00 PM Note Text: DEPARTMENT OF HOSPITAL MEDICINE HISTORY AND PHYSICAL EXAM SERVICE DATE: 03/05/2023 Code Status: Full Code SERVICE TIME: 5:30 PM Primary Care Physician: Marianne Curiel APRN.QUILT STUFFER NIGHT AND WEEKEND COVERAGE: [place] COVERAGE: Days: [phone], please page attending physician. Nights: [phone], please page [place] Hospitalist Night coverage pager [phone]. Subjective CHIEF COMPLAINT: Dysarthria, right sided weakness, right facial droop HPI: This is a 53 year old male with PMH of Hypertension presented to ED for evaluation of right-sided weakness, dysarthria, balance issues. Per patient and over the phone, Monday evening around 5:30 PM, patient started walking funny after having the back pain and was feeling very tired. Neck morning on Monday at 9 AM, patient started having right-sided pain, right upper and lower extremity weakness, slurring of his words, sleeping a lot and was not talking much. Denies any numbness, tingling, difficulty swallowing, headache or blurry vision. Denies any chest pain, shortness of breath, fever, chills, nausea, vomiting, abdominal pain, diarrhea or cough. Denies any dysuria or urinary frequency. Patient does have chronic low back pain. Denies any melena, hematochezia, hematuria, hemoptysis or hematemesis. Patient states that his grandmother had carotid artery stenosis and stroke in the past and both of his parents had hypertension and diabetes. Denies any family history of blood disorders. In ED, CT brain showed no acute findings, no evidence of acute infarction, intracranial hemorrhage or intracranial mass lesion. CTA of the head and neck showed no evidence of hemodynamically significant stenosis, intraluminal filling defect, abrupt vessel occlusion, aneurysm or vascular malformation in the intracranial and extracranial arterial vasculature. EKG showed sinus bradycardia with heart rate of 59 with isolated nonspecific T wave inversion in lead III High-sensitivity troponin of 6 and less than 6 CK-MB % within normal limits PAST MEDICAL HISTORY Diagnosis Date HTN (hypertension) PAST SURGICAL HISTORY Procedure Laterality Date LASIK N/A FAMILY HISTORY Problem Relation Age of Onset Hypertension Mother Diabetes Mother Hypertension Father Diabetes Father other (cva) Paternal Grandmother Social History Tobacco Use Smoking status: Never Substance Use Topics Alcohol use: Never Drug use: Never PRIOR TO ADMISSION MEDICATIONS: lisinopril-hydroCHLOR Othiazide (ZESTORETIC) 20-12.5 mg per tablet, Take 1 tablet by mouth once daily., Disp: , Rfl: , 03/05/2023 ALLERGIES No Known Allergies REVIEW OF SYSTEM: PAIN ASSESSMENT: Negative for pain, history of chronic pain, or current treatment for a chronic pain condition. GENERAL: No weight loss, malaise or fevers HEENT: Negative for frequent or significant headaches, No changes in hearing or vision, no nose bleeds or other nasal problems NECK: Negative for lumps, goiter, pain and significant neck swelling RESPIRATORY: Negative for cough, hemoptysis, wheezing, COPD, dyspnea or shortness of breath CARDIOVASCULAR: Negative for chest pain, leg swelling, hypertension, CHF or palpitations GI: No nausea, vomiting, or diarrhea : No history of dysuria, frequency or incontinence MUSCULOSKELETAL: Negative for joint pain or swelling, back pain or muscle pain SKIN: Negative for lesions, rash, and itching HEMATOLOGY/LYMPHOLOGY : Negative for prolonged bleeding, bruising easily or swollen nodes ENDOCRINE: Negative for cold or heat intolerance, polyuria, polydipsia and goiter NEURO: No history of headaches, syncope, paralysis, seizures or tremors Objective PHYSICAL EXAM: BP 172/93 Pulse 42 Temp (Src) 98 (Temporal) Resp 16 Ht 6' 1 (1.85m) Wt 211 lb 3.2 oz (95.8kg) SpO2 96% BMI 27.87 kg/(m2). O2 Therapy: Room Air Physical Exam Performed: GENERAL: Alert, no distress, cooperative SKIN: Skin color, texture, turgor normal. No rashes or lesions. HEAD/SINUSES: No significant findings EYES: PERRLA, EOMI NOSE: Nares normal. Septum midline. OROPHARYNX: Lips, mucosa, and tongue normal. Teeth and gums normal. Oropharynx normal. NECK: No jugulovenous distention, Supple LUNGS: Lungs clear to auscultation, Good diaphragmatic excursion CARDIAC: Normal S1 and S2; no rubs, murmurs, or gallops ABDOMEN: Abdomen soft, non-tender, BS normal, No masses or organomegaly EXTREMITIES: Extremities normal, no deformities, edema, clubbing or skin discoloration. Good capillary refill., No ulcers, 4/5 strength in right LE. 3/5 strength in Right UE, 5/5 strength in left upper and lower extremities NEURO: Cranial nerves II-XII intact, mild right facial droop, right arm drift but does not hit the bed, right leg drift, hits the bed, gita (more content not included)... Normal [facility] MRI BRAIN WO IVCONon 023 MRI BRAIN WO IVCON * * *Final Report* * * DATE OF EXAM: Mar 05 2023 7:17PM [facility] 0294 - MRI BRAIN WO IVCON / PROCEDURE REASON: Transient ischemic attack (TIA) * * * * Physician Interpretation * * * * EXAMINATION: MRI BRAIN WO IVCON CLINICAL HISTORY: Transient ischemic attack (TIA) TECHNIQUE: Routine noncontrast MRI protocol including diffusion images. MQ: [id number] COMPARISON: Head CT 03/05/2023. RESULT: Acute Change: There is 22 x 9 mm (AP, TV) restricted diffusion in the left of midline angus with corresponding T2/FLAIR hyperintensity, compatible with representing an acute infarction. Hemorrhage: No evidence of prior parenchymal hemorrhage on the gradient echo images. Mass Lesion/ Mass Effect: There is mild swelling of the aforementioned area of infarction with mild effacement of the left prepontine cistern. There is no evidence of midline shift or herniation. Chronic Change: The white matter is within normal limits of signal intensity for age. Parenchyma: No significant volume loss for age. The brain parenchyma is otherwise within normal limits of signal intensity and morphology. Ventricles: Normal caliber and morphology. Skull Base: Hypothalamic and pituitary region are grossly normal. Craniocervical junction is normal. No significant marrow replacement process. Vasculature: Major intracranial arterial structures, and dural venous sinuses show typical flow void, suggesting patency by spin echo criteria. Other: The visualized paranasal sinuses and mastoid air cells are clear. The orbits and extracranial soft tissues are unremarkable. IMPRESSION: Acute left pontine infarction. No evidence of hemorrhagic transformation. No evidence of midline shift or herniation. COMMUNICATION: Communicated with Dr. Penny on 03/05/2023 7:39 PM via verbal communication. Shoe Cutter: SHILPA Transcribe Date/Time: Mar 05 2023 7:22P Dictated by : AUDREY KOROMA MD This examination was interpreted and the report reviewed and electronically signed by: AUDREY KOROMA MD on Mar 05 2023 7:39PM EST [id number] N [facility] NURSING PROGon 03-05-2023 NURSING PROG HNO ID: [id number] Author: Cristiana Ro RN Service: Nursing Author Type: Registered Nurse Type: Nursing Progress Note Filed: 03/05/2023 7:39 PM Note Text: Other: 1735- technical sales manager called to inform me that the radiologist need to inform the attending of critical results. Dr. Penny aware and number was given to the radiologist. Normal [facility] TSH SerPl-aCncon 03-05-2023 TSH Qn 1.710 m[IU]/L Normal 0.270-4.200 [facility] Comment on above: Order Comment: Speci men Type: BLOOD SPECIMEN Ordering Facility: [facility] Address: [address] [place] [address] Performed By: #### B [id number], [id number], [id number], YING MOFFETT #### [facility] CLIA [id number] [address] [place] [address] [place] Vital Signs Date Time Vital Sign Value Performing Clinician Facility 04-14-2023 09:50-0400 Diastolic blood pressure 105 mm[Hg] Reny Matos WEDDING COORDINATOR.QUILT STUFFER Work Phone: [facility] 04-14-2023 09:50-0400 Heart rate 58 /min Reny Mikula WEDDING COORDINATOR.QUILT STUFFER Work Phone: [facility] 04-14-2023 09:50-0400 Systolic blood pressure 160 mm[Hg] Reny Mikula WEDDING COORDINATOR.QUILT STUFFER Work Phone: [facility] 04-14-2023 09:02-0400 Body height 185.4 cm Reny Mikula WEDDING COORDINATOR.QUILT STUFFER Work Phone: [facility] 04-14-2023 09:02-0400 Body weight 94.35 kg Reny Mikula WEDDING COORDINATOR.QUILT STUFFER Work Phone: [facility] 04-12-2023 18:52-0400 Body height 180.34 cm [facility] 04-12-2023 18:52-0400 Body mass index (BMI) [Ratio] 29.1 kg/m2 [facility] 04-12-2023 18:52-0400 Body temperature 97.5 [degF] [facility] 04-12-2023 18:52-0400 Body weight 94.8 kg [facility] 04-12-2023 18:52-0400 Diastolic blood pressure 80 mm[Hg] [facility] 04-12-2023 18:52-0400 Heart rate 66 /min [facility] 04-12-2023 18:52-0400 Respiratory rate 18 /min [facility] 04-12-2023 18:52-0400 SaO2% (BldA) [Mass fraction] 98 % [facility] 04-12-2023 18:52-0400 Systolic blood pressure 130 mm[Hg] [facility] 04-06-2023 09:44-0400 Diastolic blood pressure 88 mm[Hg] Kalli Maurilio OT/L Work Phone: [facility] 04-06-2023 09:44-0400 Heart rate 60 /min Kalli Maurilio OT/L Work Phone: [facility] 04-06-2023 09:44-0400 Respiratory rate 18 /min Kalli Maurilio OT/L Work Phone: [facility] 04-06-2023 09:44-0400 SaO2% (BldA) [Mass fraction] 96 % Kalli Maurilio OT/L Work Phone: [facility] 04-06-2023 09:44-0400 Systolic blood pressure 146 mm[Hg] Kalli Maurilio OT/L Work Phone: [facility] 04-06-2023 09:03-0400 Body temperature 97.39 [degF] Kalli Maurilio OT/L Work Phone: [facility] 04-06-2023 08:29-0400 Diastolic blood pressure 84 mm[Hg] Ellis Knupp PT Work Phone: [facility] 04-06-2023 08:29-0400 Heart rate 81 /min Ellis Knupp PT Work Phone: [facility] 04-06-2023 08:29-0400 Respiratory rate 18 /min Ellis Knupp PT Work Phone: [facility] 04-06-2023 08:29-0400 SaO2% (BldA) [Mass fraction] 97 % Ellis Knupp PT Work Phone: [facility] 04-06-2023 08:29-0400 Systolic blood pressure 140 mm[Hg] Ellis Knupp PT Work Phone: [facility] 04-06-2023 08:21-0400 Body temperature 97.39 [degF] Ellis Knupp PT Work Phone: [facility] 03-30-2023 08:59-0400 Diastolic blood pressure 90 mm[Hg] Kalli Maurilio OT/L Work Phone: [facility] 03-30-2023 08:59-0400 Heart rate 61 /min Kalli Maurilio OT/L Work Phone: [facility] 03-30-2023 08:59-0400 SaO2% (BldA) [Mass fraction] 97 % Kalli Maurilio OT/L Work Phone: [facility] 03-30-2023 08:59-0400 Systolic blood pressure 142 mm[Hg] Kalli Maurilio OT/L Work Phone: [facility] 03-30-2023 08:14-0400 Body temperature 98.01 [degF] Kalli Maurilio OT/L Work Phone: [facility] 03-30-2023 08:14-0400 Respiratory rate 18 /min Kalli Maurilio OT/L Work Phone: [facility] 03-24-2023 08:41-0400 Body temperature 97.59 [degF] Kalli Maurilio OT/L Work Phone: [facility] 03-24-2023 08:41-0400 Diastolic blood pressure 90 mm[Hg] Kalli Maurilio OT/L Work Phone: [facility] 03-24-2023 08:41-0400 Heart rate 55 /min Kalli Maurilio OT/L Work Phone: [facility] 03-24-2023 08:41-0400 Respiratory rate 18 /min Kalli Maurilio OT/L Work Phone: [facility] 03-24-2023 08:41-0400 SaO2% (BldA) [Mass fraction] 97 % Kalli Maurilio OT/L Work Phone: [facility] 03-24-2023 08:41-0400 Systolic blood pressure 138 mm[Hg] Kalli Maurilio OT/L Work Phone: [facility] 03-23-2023 08:30-0400 Body temperature 97.39 [degF] Carolyn Blackert VENDING TECHNICIAN Work Phone: [facility] 03-23-2023 08:30-0400 Diastolic blood pressure 80 mm[Hg] Carolyn Blackert VENDING TECHNICIAN Work Phone: [facility] 03-23-2023 08:30-0400 Heart rate 62 /min Carolyn Blackert VENDING TECHNICIAN Work Phone: [facility] 03-23-2023 08:30-0400 Respiratory rate 17 /min Carolyn Blackert VENDING TECHNICIAN Work Phone: [facility] 03-23-2023 08:30-0400 SaO2% (BldA) [Mass fraction] 97 % Carolyn Blackert VENDING TECHNICIAN Work Phone: [facility] 03-23-2023 08:30-0400 Systolic blood pressure 122 mm[Hg] Carolyn Blackert VENDING TECHNICIAN Work Phone: [facility] 03-21-2023 08:14-0400 Body temperature 97.39 [degF] Carolyn Blackert VENDING TECHNICIAN Work Phone: [facility] 03-21-2023 08:14-0400 Diastolic blood pressure 88 mm[Hg] Carolyn Blackert VENDING TECHNICIAN Work Phone: [facility] 03-21-2023 08:14-0400 Heart rate 57 /min Carolyn Blackert VENDING TECHNICIAN Work Phone: [facility] 03-21-2023 08:14-0400 Respiratory rate 17 /min Carolyn Blackert VENDING TECHNICIAN Work Phone: [facility] 03-21-2023 08:14-0400 SaO2% (BldA) [Mass fraction] 98 % Carolyn Herrert VENDING TECHNICIAN Work Phone: [facility] 03-21-2023 08:14-0400 Systolic blood pressure 120 mm[Hg] Carolyn Herrert VENDING TECHNICIAN Work Phone: [facility] 03-17-2023 08:21-0400 Body temperature 97.5 [degF] Carolyn Herrert VENDING TECHNICIAN Work Phone: [facility] 03-17-2023 08:21-0400 Diastolic blood pressure 90 mm[Hg] Carolyn Herrert VENDING TECHNICIAN Work Phone: [facility] 03-17-2023 08:21-0400 Heart rate 77 /min Carolyn Blackert VENDING TECHNICIAN Work Phone: [facility] 03-17-2023 08:21-0400 Respiratory rate 17 /min Carolyn Herrert VENDING TECHNICIAN Work Phone: [facility] 03-17-2023 08:21-0400 SaO2% (BldA) [Mass fraction] 97 % Carolyn Herrert VENDING TECHNICIAN Work Phone: [facility] 03-17-2023 08:21-0400 Systolic blood pressure 138 mm[Hg] Carolyn Herrert VENDING TECHNICIAN Work Phone: [facility] 03-16-2023 14:29-0400 Body temperature 98.1 [degF] Kalli Maurilio OT/L Work Phone: [facility] 03-16-2023 14:29-0400 Diastolic blood pressure 88 mm[Hg] Kalli Maurilio OT/L Work Phone: [facility] 03-16-2023 14:29-0400 Heart rate 70 /min Kalli Maurilio OT/L Work Phone: [facility] 03-16-2023 14:29-0400 Respiratory rate 18 /min Kalli Maurilio OT/L Work Phone: [facility] 03-16-2023 14:29-0400 SaO2% (BldA) [Mass fraction] 97 % Kalli Maurilio OT/L Work Phone: [facility] 03-16-2023 14:29-0400 Systolic blood pressure 138 mm[Hg] Kalli Maurilio OT/L Work Phone: [facility] 03-16-2023 08:50-0400 Body temperature 98.01 [degF] Victoria Piedra RN Work Phone: [facility] 03-16-2023 08:50-0400 Diastolic blood pressure 78 mm[Hg] Victoria Piedra RN Work Phone: [facility] 03-16-2023 08:50-0400 Heart rate 60 /min Victoria Piedra RN Work Phone: [facility] 03-16-2023 08:50-0400 Respiratory rate 20 /min Victoria Piedra RN Work Phone: [facility] 03-16-2023 08:50-0400 SaO2% (BldA) [Mass fraction] 98 % Victoria Piedra RN Work Phone: [facility] 03-16-2023 08:50-0400 Systolic blood pressure 124 mm[Hg] Victoria Piedra RN Work Phone: [facility] 03-13-2023 16:43-0400 Body temperature 98.49 [degF] Merry Gale CCC-SECTION CREWS ACTIVITIES CLERK Work Phone: [facility] 03-13-2023 16:43-0400 Diastolic blood pressure 88 mm[Hg] Merry Gale CCC-SECTION CREWS ACTIVITIES CLERK Work Phone: [facility] 03-13-2023 16:43-0400 Heart rate 68 /min Merry Gale CCC-SECTION CREWS ACTIVITIES CLERK Work Phone: [facility] 03-13-2023 16:43-0400 Respiratory rate 18 /min Merry Gale CCC-SECTION CREWS ACTIVITIES CLERK Work Phone: [facility] 03-13-2023 16:43-0400 SaO2% (BldA) [Mass fraction] 96 % Merry Gale CCC-SECTION CREWS ACTIVITIES CLERK Work Phone: [facility] 03-13-2023 16:43-0400 Systolic blood pressure 132 mm[Hg] Marylin Carter CCC-SECTION CREWS ACTIVITIES CLERK Work Phone: [facility] 03-10-2023 10:28-0400 Body temperature 98.2 [degF] Franchesca Cantrell RN Work Phone: [facility] 03-10-2023 10:28-0400 Diastolic blood pressure 78 mm[Hg] Franchesca Cantrell RN Work Phone: [facility] 03-10-2023 10:28-0400 Heart rate 64 /min Franchesca Cantrell RN Work Phone: [facility] 03-10-2023 10:28-0400 Respiratory rate 20 /min Franchesca Cantrell RN Work Phone: [facility] 03-10-2023 10:28-0400 SaO2% (BldA) [Mass fraction] 95 % Franchesca Cantrell RN Work Phone: [facility] 03-10-2023 10:28-0400 Systolic blood pressure 140 mm[Hg] Franchesca Cantrell RN Work Phone: [facility] Encounters Encounter Date Encounter Type Care Provider Facility Start: 06-26-2024 Encounter for genera l adult medical examination without abnormal findings Marianne Curiel NP [facility] Start: 06-04-2024 End: 06-04-2024 ambulatory Marianne Curiel NP Facility:[facility] Start: 08-18-2023 End: 08-18-2023 ambulatory OLIVIA RIZO MD Facility:[facility] Start: 06-26-2023 End: 06-26-2023 Subsequent hospital visit by physician Nicanor Pennington Work Phone: [facility] Radiology Comment on above: Pain in right should er; Cervicalgia Pain in right should er (Primary Dx); Cervicalgia Start: 06-26-2023 End: 06-27-2023 ambulatory NICANOR PENNINGTON [facility] Start: 05-01-2023 Telephone encounter Reny Fulton garima WEDDING COORDINATOR.QUILT STUFFER Work Phone: [facility] Comment on above: Symptoms Start: 04-14-2023 End: 04-14-2023 ambulatory MARIANNE CURIEL Facility:[facility] Start: 04-14-2023 End: 04-14-2023 Patient encounter procedure Reny Matos WEDDING COORDINATOR.QUILT STUFFER Work Phone: [facility] Comment on above: 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) (Primary Dx) Start: 04-12-2023 End: 04-12-2023 ambulatory [facility] Work Phone: Start: 04-12-2023 End: 04-12-2023 Patient encounter procedure [facility]-Laboratory, Specimen Work Phone: Start: 04-06-2023 End: 04-06-2023 Home visit Kalli Maurilio OT/L Work Phone: [facility] Comment on above: OT AGENCY DC W VISIT PT DISC DC W VISIT Start: 03-30-2023 End: 03-30-2023 Home visit Kalli Maurilio OT/L Work Phone: [facility] Comment on above: OT ROUTINE Start: 03-27-2023 End: 03-27-2023 Home visit Marylin Carter [facility]-SECTION CREWS ACTIVITIES CLERK Work Phone: [facility] Comment on above: SECTION CREWS ACTIVITIES CLERK DISC DC WO VISIT Start: 03-24-2023 End: 03-24-2023 Home visit Kalli Maurilio OT/L Work Phone: [facility] Comment on above: OT ROUTINE Start: 03-23-2023 End: 03-23-2023 Home visit Carolyn Velez VENDING TECHNICIAN Work Phone: [facility] Comment on above: VENDING TECHNICIAN ROUTINE Start: 03-21-2023 End: 03-21-2023 Home visit Carolyn Velez VENDING TECHNICIAN Work Phone: [facility] Comment on above: VENDING TECHNICIAN ROUTINE Start: 03-20-2023 End: 03-20-2023 Home visit Victoria Piedra RN Work Phone: [facility] Comment on above: SN DISC DC WO VISIT Start: 03-17-2023 End: 03-17-2023 Home visit Carolyn Velez VENDING TECHNICIAN Work Phone: [facility] Comment on above: VENDING TECHNICIAN ROUTINE Start: 03-16-2023 End: 03-16-2023 Home visit Victoria Piedra RN Work Phone: [facility] Comment on above: SN ROUTINE OT EVAL Start: 03-15-2023 Telephone encounter Self [facility] Comment on above: Home Care Start: 03-13-2023 Telephone encounter Zora ricks RN Work Phone: [facility] Comment on above: Patient Update (SN u nmade visit today) Start: 03-13-2023 End: 03-13-2023 Home visit Zora De La Fuente RN Work Phone: [facility] Comment on above: SN UNMADE VISIT SECTION CREWS ACTIVITIES CLERK EVAL Start: 03-10-2023 End: 03-10-2023 Home visit Franchesca Cantrell RN Work Phone: [facility] Comment on above: SN SOC Start: 03-06-2023 Telephone encounter Zora interiano Work Phone: [facility] Comment on above: Home Care (CONFIRMAT ION CALL) Start: 03-05-2023 End: 03-06-2023 Evaluation and management of inpatient MARIANNE CURIEL Facility:[facility] Start: 02-01-2018 Physical examination Wo bunny [facility] Procedures Date Procedure Procedure Detail Performing Clinician Start: 06-26-2023 Radex spine cervical 4 or 5 views Nicanor Pennington Work Phone: Plan of Treatment Date Care Activity Detail Author Start: 2032 RSV Immunization age d 60 or older (1 - 1-dose 60+ series) RSV Immunization aged 60 or older (1 - 1-dose 60+ series) YR Free [employer] Start: 03-06-2028 LIPID SCREEN LIPID SCREEN [facility] Start: 03-06-2026 DIABETES SCREEN DIABETES SCREEN [facility] Start: 03-16-2024 BP CONTROLLED (<130/80) BP CONTROLLE D (<130/80) [facility] Start: 03-06-2024 Diabetes mellitus screening Diabetes Screening [facility] Start: 05-05-2023 COVID-19 Vaccine () COVID-19 Vaccine () [facility] Start: 05-05-2023 Influenza vaccination C [facility] Start: 09-04-2022 DEPRESSION ASSESSMENT DEPRESSION ASS ESSMENT [facility] Start: 2022 SHINGRIX VACCINE (1 of 2) SHINGRIX VACCINE (1 of 2) [facility] Start: 2022 Zoster Vaccines (1 of 2) Zoster Vacc stuart (1 of 2) [facility] Start: 02-10-2021 COVID-19 VACCINE (3 - Booster for Pfizer series) COVID-19 VACCINE (3 - Booster for Pfizer series) [facility] Start: 02-10-2021 COVID-19 VACCINE (3 - Pfizer series) COVID-19 VACCINE (3 - Pfizer series) [facility] Start: 2017 COLOGUARD (FIT-DNA) COLOGUARD (FIT-D NA) [facility] Start: 2017 Colonoscopy COLONOSCOPY [facility] Start: 2017 COLORECTAL CANCER SCREENING COLORECTAL CANCER SCREENING [facility] Start: [address] COLONOGRAPHY [facility] Start: 2017 FECAL OCCULT BLOOD FECAL OCCULT BLOO D [facility] Start: 2017 SIGMOIDOSCOPY SIGMOIDOSCOPY [facility] Start: 1991 DTaP/Tdap/Td Vaccine s (1 - Tdap) DTaP/Tdap/Td Vaccines (1 - Tdap) [facility] Start: 1991 Urine microalbumin profile DTAP,TDAP,TD (1 - Tdap) [facility] Start: 1990 ANNUAL PCP TEAM CHEESE COOK ARIANA DISEASE VISIT ANNUAL PCP TEAM CHRONIC DISEASE VISIT [facility] Start: 1990 BP CONTROLLED (<130/80) BP CONTROLLE D (<130/80) [facility] Start: 1990 Diabetes mellitus screening Diabetes Screening [facility] Start: 1990 HEPATITIS C SCREENING HEPATITIS C [facility] Start: 1990 Hepatitis C screening Hepatitis C [facility] Start: 1990 HIV SCREENING HIV SCREENING [facility] Start: 1984 Depression Screening Depression Scre ening [facility] Start: 1973 MMR Vaccines (1 of 1 - Standard series) MMR Vaccines (1 of 1 - Standard series) [facility] Start: 1972 HEPATITIS B (1 of 3 - 3-dose series) HEPATITIS B (1 of 3 - 3-dose series) [facility] Start: 1972 Hepatitis B Vaccines (1 of 3 - 3-dose series) Hepatitis B Vaccines (1 of 3 - 3-dose series) [facility] Start: 1972 HIV screening HIV Screening [facility] Start: 1972 Lipid panel Lipid Panel [facility] Start: 1972 Screening for malign ant neoplasm of colon [facility] OUTSIDE PROCEDURE SCAN OUTSIDE P ROCEDURE SCAN Procedures Ordered: 06/26/2023 [facility] Comment on above: Ordered: 06/26/2023 [facility] Payers Date Payer Category Payer Self-pay [id number] 2021 Unknown [id number] 2008 Unknown [id number] 1972 Unknown [id number] Unknown [id number] Social History Date Type Detail Facility Start: 03-05-2023 End: 04-14-2023 Tobacco smoking status NHIS Never smoked tobacco [facility] Work Phone: Start: 03-05-2023 End: 04-19-2023 Alcohol intake Lifetime non-drinker (finding) [facility] Start: 03-06-2023 History SDOH Financial 5 [facility] Start: 03-06-2023 History SDOH Food Worry 1 [facility] Start: 03-06-2023 History SDOH Transpo rt Med 2 [facility] Start: 1970 Sex Assigned At Not on file C [facility] Start: 03-05-2023 End: 03-06-2023 History of Social function [facility] Start: 03-05-2023 End: 03-06-2023 Tobacco use panel [facility] How hard is it for y ou to pay for the very basics like food, housing, medical care, and heating Not hard at all [facility] (I/We) worried wheth er (my/our) food would run out before (I/we) got money to buy more. Never true [facility] In the past 12 month s, was there a time when you were not able to pay the mortgage or rent on time? No [facility] Start: 1970 Sex Assigned At Male [facility] Start: 04-14-2023 Tobacco use and exposure Smokeless tobacco non-user [facility] Tobacco smoking stat us NHIS Tobacco smoking consumption unknown [facility] Clinical Notes 03-05-2023 to 05-04-2023 Telephone Encounter - Lesley Bolivar RN - 05/04/2023 4:06 PM EDTTelephone Encounter - Nathalia Bell - 05/03/2023 11:19 AM Reny Alejandro APRN.RORY - 04/14/2023 8:59 AM EDT Note Date & Type Note Facility 05-04-2023 Miscellaneous Notes RN called patient with provided phone number. 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 Patient verbalized understanding and willing to comply with plan of care. Patient had no other questions at this time Lesley Bolivar RN May 04, 2023 4:07 PM , Genna is returning call - she is asking if Iron can take Ibuprofen for the pain. Please call Genna at [phone]. RN attempted to call patient with provided phone number ([phone]) no answer, left voicemail, will attempt to call again Lesley Bolivar RN May 02, 2023 2:56 PM CV PHONE Name of caller : Pastora Relationship to patient : Spouse/ SignificantOther If not self Will need patient permission to release results or disclose health information with called documented in fyi. Patient identified by Name and Date of . ( Iron Conde, 1970). Yes Number to return call [phone] Reason for Call: Symptoms Call: Symptoms: Swelling and pain in hand, arm and shoulder. Right side Duration: >48 hours Progression: worse Pain level: NA on a scale of 0-10. Type of pain (feels like): NA Frequency: constant Location of pain: Right hand, arm, shoulder swelling and pain. Pharmacy: [facility] [place] Stated Iron has had the swelling for a couple months, but it seems to be getting worse and now having pain in his shoulder on the right side. Thank you calling [facility] [place]. You will receive a return call within 48 hours ( or 2 business days if close to the weekend). If you feel that this is an urgent issue and needs immediate attention, it is recommended that you contact your primary care provider office or proceed to your nearest Urgent Care Center of Emergency Room ED for evaluation/treatment. documented in this encounter [facility] 04-14-2023 Note HNO ID: [id number] Author: Reny Matos APRN.RORY Service: ? Author Type: Nurse Practitioner Type: Progress Notes Filed: 04/19/2023 4:04 PM Note Text: [facility] Established Visit PCP: Marianne Curiel (Sam) [address] [facility] [address] [place] [id number] CEREBROVASCULAR HISTORY Iron Conde is a 53 year old male who presents for neurologic evaluation following recent hospitalization for acute ischemic stroke (03/05/2023-03/06/2023). Reason for Visit: stroke Date of Last Event: 03/05/2023 History of Event: HOSPITAL COURSE: Iron Conde is a 53 year old male presented with past medical history of Hypertension presented to ED for evaluation of right-sided weakness, dysarthria, balance issues. Per patient and over the phone, Monday evening around 5:30 PM, patient started walking funny after having the back pain and was feeling very tired. Neck morning on Monday at 9 AM, patient started having right-sided pain, right upper and lower extremity weakness, slurring of his words, sleeping a lot and was not talking much. Denies any numbness, tingling, difficulty swallowing, headache or blurry vision. In ED, CT brain showed no acute findings, no evidence of acute infarction, intracranial hemorrhage or intracranial mass lesion. CTA of the head and neck showed no evidence of hemodynamically significant stenosis, intraluminal filling defect, abrupt vessel occlusion, aneurysm or vascular malformation in the intracranial and extracranial arterial vasculature. EKG showed sinus bradycardia with heart rate of 59 with isolated nonspecific T wave inversion in lead III High-sensitivity troponin of 6 and less than 6. CK-MB % within normal limits. Admitted for, Acute Acute left pontine infarction (cerebrovascular accident) (HCC) -NIHSS scale of 7 with mild right facial droop, right arm drift but does not hit the bed, right leg drift, hits the bed, ataxia in 2 limbs, mild to moderate dysarthria, slurring but can be understood -CT brain showed no acute findings, no evidence of acute infarction, intracranial hemorrhage or intracranial mass lesion. -CTA of the head and neck showed no evidence of hemodynamically significant stenosis, intraluminal filling defect, abrupt vessel occlusion, aneurysm or vascular malformation in the intracranial and extracranial arterial vasculature. -MRI brain showed Acute left pontine infarction. No evidence of hemorrhagic transformation. No evidence of midline shift or herniation. -2D echo showed - The left ventricle is normal in size. Left ventricular systolic function is normal. EF = 63 ? 5% (2D biplane) -The right ventricle is normal in size. Right ventricular systolic function is normal. There is no patent foramen ovale as detected by Doppler and saline contrast with valsalva. Agitated saline study is negative for shunt (clip #106) MRI Brain Acute left pontine infarction, etiology unclear per Neurology. Patient was seen by Cardiology and Neurology-Need outpatient 14 day ziopatch. Please call office of Dr. Olivia Rizo MD to arrange appointment-Follow up with Cardiology Dr. Olivia Rizo MD for outpatient ALEXANDREA -Started Lipitor 40 mg daily -continue with aspirin 81 mg daily, Plavix 75 mg daily for 21 days then aspirin monotherapy -Hypercoagulable workup ordered. Please follow up with Neurology for results -Follow up with Stroke clinic follow up Brief episode of non-sustained paroxysmal SVT -Continue telemetry -TSH WNL -2D echo as above -Continue to monitor for now Active Problems: HTN (hypertension) -Hold hypertensive medication for permissive hypertension Patient refused acute rehab and agreed with home care. Antiplatelets/Anticoagulants: Aspirin Statins: Atorvastatin Side effects: No Refills needed: No Current PT/OT/ST: No therapy needs Initial Discharge Disposition: Home with home care Current Living Situation: Home with spouse and Home with children Current use of a mobility aid for walking/getting around: None Interval History: Presents today to clinic with his History of high blood pressure for 20 years, blood pressure at PCP recently 132/80. Sees cook chief next week, Dr. Rizo. Heart monitor completed 2 weeks ago, wore it for 2 weeks. Previously not on aspirin before stroke. Remains on aspirin 81 mg daily without reported bleeding issues. 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 No shortness of breath, heart palpitations or chest pain. PAST MEDICAL HISTORY Diagnosis Date HTN (hypertension) PAST SURGICAL HISTORY Procedur (more content not included)... [facility] 04-14-2023 History of Presen t illness Narrative [facility] Established Visit PCP: Marianne Curiel (Sam) [address] [facility] [address] [place] [address] CEREBROVASCULAR HISTORY Iron Conde is a 53 year old male who presents for neurologic evaluation following recent hospitalization for acute ischemic stroke (03/05/2023-03/06/2023). Reason for Visit: stroke Date of Last Event: 03/05/2023 History of Event: HOSPITAL COURSE: Iron Conde is a 53 year old male presented with past medical history of Hypertension presented to ED for evaluation of right-sided weakness, dysarthria, balance issues. Per patient and over the phone, Monday evening around 5:30 PM, patient started walking funny after having the back pain and was feeling very tired. Neck morning on Monday at 9 AM, patient started having right-sided pain, right upper and lower extremity weakness, slurring of his words, sleeping a lot and was not talking much. Denies any numbness, tingling, difficulty swallowing, headache or blurry vision. In ED, CT brain showed no acute findings, no evidence of acute infarction, intracranial hemorrhage or intracranial mass lesion. CTA of the head and neck showed no evidence of hemodynamically significant stenosis, intraluminal filling defect, abrupt vessel occlusion, aneurysm or vascular malformation in the intracranial and extracranial arterial vasculature. EKG showed sinus bradycardia with heart rate of 59 with isolated nonspecific T wave inversion in lead III High-sensitivity troponin of 6 and less than 6. CK-MB % within normal limits. Admitted for, Acute Acute left pontine infarction (cerebrovascular accident) (HCC) -NIHSS scale of 7 with mild right facial droop, right arm drift but does not hit the bed, right leg drift, hits the bed, ataxia in 2 limbs, mild to moderate dysarthria, slurring but can be understood -CT brain showed no acute findings, no evidence of acute infarction, intracranial hemorrhage or intracranial mass lesion. -CTA of the head and neck showed no evidence of hemodynamically significant stenosis, intraluminal filling defect, abrupt vessel occlusion, aneurysm or vascular malformation in the intracranial and extracranial arterial vasculature. -MRI brain showed Acute left pontine infarction. No evidence of hemorrhagic transformation. No evidence of midline shift or herniation. -2D echo showed - The left ventricle is normal in size. Left ventricular systolic function is normal. EF = 63 5% (2D biplane) -The right ventricle is normal in size. Right ventricular systolic function is normal. There is no patent foramen ovale as detected by Doppler and saline contrast with valsalva. Agitated saline study is negative for shunt (clip #106) MRI Brain Acute left pontine infarction, etiology unclear per Neurology. Patient was seen by Cardiology and Neurology-Need outpatient 14 day ziopatch. Please call office of Dr. Olivia Rizo MD to arrange appointment-Follow up with Cardiology Dr. Olivia Rizo MD for outpatient ALEXANDREA -Started Lipitor 40 mg daily -continue with aspirin 81 mg daily, Plavix 75 mg daily for 21 days then aspirin monotherapy -Hypercoagulable workup ordered. Please follow up with Neurology for results -Follow up with Stroke clinic follow up Brief episode of non-sustained paroxysmal SVT -Continue telemetry -TSH WNL -2D echo as above -Continue to monitor for now Active Problems: HTN (hypertension) -Hold hypertensive medication for permissive hypertension Patient refused acute rehab and agreed with home care. Antiplatelets/Anticoagulants: Aspirin Statins: Atorvastatin Side effects: No Refills needed: No Current PT/OT/ST: No therapy needs Initial Discharge Disposition: Home with home care Current Living Situation: Home with spouse and Home with children Current use of a mobility aid for walking/getting around: None Interval History: Presents today to clinic with his History of high blood pressure for 20 years, blood pressure at PCP recently 132/80. Sees cook chief next week, Dr. Rizo. Heart monitor completed 2 weeks ago, wore it for 2 weeks. Previously not on aspirin before stroke. Remains on aspirin 81 mg daily without reported bleeding issues. 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 No shortness of breath, heart palpitations or chest pain. PAST MEDICAL HISTORY Diagnosis Date HTN (hypertension) PAST SURGICAL HISTORY Procedure Laterality Date LASIK N/A FAMILY HISTORY Problem Relation Age of Onset Hypertension Mother Diabetes Mother Hypertension Father Diabetes Father other (cva) Paternal Grandmother Social History Tobacco Use Smoking status: Never Smokeless tobacco: Never Substance Use Topics Alcohol use: Never Drug use: Never MEDICATIONS Current Outpatient Medications Medication Sig aspirin 81 mg chewable tablet 1 tablet by ORAL/FEEDING TUBE route once daily. atorvastatin (LIPITOR) 40 mg tablet Take 1 tablet by mouth daily at bedtime. lisinopril-hydroCHLOROthiazide (ZESTORETIC) 20-12.5 mg per tablet Take 1 tablet by mouth once daily. No current facility-administered medications for this visit. ALLERGIES ALLERGIES No Known Allergies PHYSICAL EXAMINATION BP 168/96 Pulse (!) 58 Ht 185.4 cm (6' 1) Wt 94.3 kg (208 lb) BMI 27.44 kg/m General: Well-developed, well-nourished, in no acute distress. HEENT: Normocephalic, atraumatic. Sclerae anicteric. Lungs: Respirations even and unlabored, on room air. Extremities: No edema, cyanosis, or clubbing. Skin: No rash or ecchymoses. Neurological: Awake, alert, oriented to person, place, and time. Speech fluent, no dysarthria. Good attention and insight into illness. Cranial Nerves: PERRL, extraocular movements intact without nystagmus. Visual rene grossly intact. Facial sensation and movements normal and symmetric. Tongue midline. Shoulder shrug symmetric. Motor: Normal bulk and tone. Strength 5/5 throughout. No pronator drift or tremor. Sensation: Grossly intact light touch. Coordination: [id number] and [id number] with mild dysmetria on the right. Decreased FFM of the right hand. Gait: Ambulates easily into the office without assistance. LABS Cholesterol: Cholesterol, Total (mg/dL) Date Value 03/06/2023 181 LDL Cholesterol (mg/dL) Date Value 03/06/2023 117 HDL Cholesterol (mg/dL) Date Value 03/06/2023 30 Triglyceride (mg/dL) Date Value 03/06/2023 170 Diabetes: Hemoglobin A1C (%) Date Value 03/06/2023 5.6 IMAGING Transthoracic Echocardiogram (03/06/2023): - The left ventricle is normal in size. Left ventricular systolic function is normal. EF = 63 5% (2D biplane) - The right ventricle is normal in size. Right ventricular systolic function is normal. - There is no patent foramen ovale as detected by Doppler and saline contrast with valsalva. - Agitated saline study is negative for shunt (clip #106) - The patient has not had a prior CC echocardiographic exam for comparison. MRI brain without contrast (03/06/2023): Acute left pontine infarction. No evidence of hemorrhagic transformation. No evidence of midline shift or herniation. ECG (03/05/2023): SINUS BRADYCARDIA MODERATE VOLTAGE CRITERIA FOR LVH, MAY BE NORMAL VARIANT BORDERLINE ECG CT head + CTA head/neck (03/05/2023): No acute findings. No evidence of acute infarction, intracranial hemorrhage or intracranial mass lesion. No evidence of hemodynamically significant stenosis, intraluminal filling defect, abrupt vessel occlusion, aneurysm or vascular malformation in the intracranial and extracranial arterial vasculature. Patient Entered Questionnaires- not completed for today's visit PROMIS/NeuroQoL Score Percentiles Percentiles provide an indication of how a patient's score ranks in relation to the [place] general population. > 31st percentile is within normal limits or better * < 31st percentile is at least SD worse than population, which may be clinically relevant < 16th percentile is at least 1 SD worse than population and warrants attention Depression Screening: PHQ-9 Scores: PHQ-9 Self-Harm (Item 9) Response: 0 - 9 No to Mild depression 0 - Not at all 10 - 14 Moderate depression 1 - Several Days > 15 Severe depression 2 - More than half the days 3 - Nearly every day Stroke Mechanism and Scales Ischemic or TIA: Ischemic Stroke Modified Dionte Score: Score: 1 NIH Stroke Scale: LOC: 0 LOC Questions: 0 LOC Commands: 0 LOC Normal Gaze: 0 Visual Rene: 0 Facial Palsy: 0 Motor Left Arm: 0 Motor Right Arm: 0 Motor Left Le Motor Right Le Limb Ataxia: 0 Sensory: 0 Language: 0 Dysarthria: 0 Extinction/Neglect: 0 Total Daily NIHSS: 0 IMPRESSION Subacute left pontine ischemic stroke likely secondary to intrinsic small vessel disease secondary to chronic hypertension. Hypertension Dyslipidemia PLAN Continue aspirin 81 mg daily Await cardiac event monitor results. Consider ALEXANDREA in young patient with minimal vascular risk factors. Consult occupational therapy secondary to right hand dexterity issues and driving program Optimization of stroke risk factors Blood pressure management: goal BP less than 130/80, continue antihypertensives as prescribed. Recommend home blood pressure monitoring twice daily. Notify primary care provider of elevated readings. Cholesterol control: goal LDL less than 70, continue statin therapy. Regular follow up with primary care doctor for health maintenance Assist ensuring blood pressure and cholesterol are at goal Screen and manage diabetes Lifestyle modification -- Establish goals Diet Regular exercise as discussed Establish weight goals with primary care doctor Additional stroke reduction measures and stroke warning signs are listed below. Reviewed signs and symptoms warranting emergent neurologic evaluation. Return to clinic in 8 weeks I spent a total of 30 minutes on the date of service which included preparing to see the patient, [id number] patient care, completing clinical documentation, obtaining and/or reviewing separately obtained history, performing a medically appropriate examination, counseling and educating the patient/family/caregiver, ordering medications, tests, or procedures, independently interpreting results (not separately reported), and communicating results to the patient/family/caregiver SIGNATURE Reny Matos APRN.CNP 04/14/2023 documented in this encounter [facility] 04-06-2023 Miscellaneous Notes SITUATION: Ot discharge spouse present during today's visit. patient reports the following since the last homecare visit: medications/allergies--no changes, no fall. patient reports he is doing well and is agreement with discharge . BACKGROUND: Diagnoses or reason for Home Care: cva ASSESSMENT: Focus of visit: review of goals and assess for dc Occupational therapy discharged: goals achieved. Functional Performance at discharge: pt indep with grooming, toileting, dressing and bathing. Pt indep with his UE HEP, Plan of care, goals, and discharge reviewed and agreed upon with patient/caregiver. RECOMMENDATION: Instructions include: discharged from OT and agency Post dc recommendations: continue with ue hep hep followup with MD and address outpt service as needed See intervention summary for intervention/education details. documented in this encounter [facility] 04-06-2023 Miscellaneous Notes SITUATION: spouse present during today's visit. patient reports the following since the last homecare visit: medications/allergies--no changes, no fall. patient reports he is completing his HEP and is resuming normal activity and is ready for P.T. DC. BACKGROUND: Diagnoses (reason for Home Care): Cerebral infarction Weight Bearing/Precaution Changes: no changes ASSESSMENT: Focus of visit: DC from P.T. Physical therapy discharged: goals achieved. Functional performance at discharge - bed mobility independent, transfers independent, ambulation independent and stairs independent. Plan of care, goals, and discharge reviewed and agreed upon with patient and/or caregiver. RECOMMENDATION: Patient discharged from PT and is active with OT. Instructions to include:home exercise program as directed See intervention summary for intervention/education details. documented in this encounter [facility] 03-30-2023 Miscellaneous Notes SITUATION: OT routine visit spouse present during today's visit. patient reports the following since the last homecare visit: medications/allergies--no changes, no fall. patient reports he is doing better integrating his right ue with left . BACKGROUND: Diagnoses or reason for Home Care: cva ASSESSMENT: Focus of Visit ue neuro altaf Patient identified goals to get stronger Plan of care, goals, and visit frequency reviewed and agreed upon with patient and/or caregiver. See intervention summary for intervention/education details. Current Discharge Plan: remain in community with/without caregiver support. Anticipate discharge by 04/08/23 RECOMMENDATION: Next visit to focus on ue neuro altaf documented in this encounter [facility] 03-27-[address] contacted the patient's spouse to schedule a follow up speech therapy visit. The patient spouse reported the patient has made significant improvement with his oral motor movement and speech production. She reported he has been doing the exercises given and that he does not need any further speech therapy visits. Physician notified. documented in this encounter [facility] 03-24-2023 Miscellaneous Notes SITUATION: OT routine visit spouse present during today's visit. patient reports the following since the last homecare visit: medications/allergies--no changes, no fall. patient reports he is doing well has been tired over last few days. BACKGROUND: Diagnoses or reason for Home Care: Cerebral infarction, unspecified ASSESSMENT: Focus of Visit hand pinch and community assistant strengthening, and coordination exercises Patient identified goals to get stronger Plan of care, goals, and visit frequency reviewed and agreed upon with patient and/or caregiver. See intervention summary for intervention/education details. Current Discharge Plan: remain in community with/without caregiver support. Anticipate discharge by 04/08/23 RECOMMENDATION: Next visit to focus on ue strengthening/coordination documented in this encounter [facility] 03-23-2023 Miscellaneous Notes SITUATION: VENDING TECHNICIAN routine visit. spouse present during today's visit. patient and caregiver reports the following since the last homecare visit: medications/allergies--no changes, no fall. patient reports I've been moving alot better lately.. 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 Focus of visit: Stair training Plan of care, goals, and visit frequency reviewed and agreed upon with patient and/or caregiver. Current Discharge Plan: outpatient rehab Anticipate discharge by 04/04/23 RECOMMENDATION: Pt would cont to benefit from further PT tx to improve LE/ trunk strength/ control and balance in order to decrease assistance with transfers, walking, and stair negotiation. Next visit to focus on: Improving LE/ trunk control and improving balance. See intervention summary for intervention/education details. documented in this encounter [facility] 03-21-2023 Miscellaneous Notes SITUATION: VENDING TECHNICIAN routine visit. spouse present during today's visit. patient and caregiver reports the following since the last homecare visit: medications/allergies--no changes, no fall. patient reports R side movement and control. 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 Focus of visit: Improve balance and R side control. Plan of care, goals, and visit frequency reviewed and agreed upon with patient and/or caregiver. Current Discharge Plan: outpatient rehab Anticipate discharge by 04/04/23 RECOMMENDATION: Pt would cont to benefit from further PT tx to improve LE/ trunk strength/ control and balance in order to decrease assistance with transfers, walking, and stair negotiation. Next visit to focus on: Stair negotiation See intervention summary for intervention/education details. documented in this encounter [facility] 03-20-2023 Miscellaneous Notes SN called to discuss pt with . informed SN she did not feel pt needed anymore vs from SN. SN informed her SN vs will be cancelled and prn SN vs if needed and she verbalized understanding. SN sent message to Ellis PT, Bharti FLETCHER and Kalli OT. Order for SN discipline discharge will be sent to Tom Curiel CNP documented in this encounter [facility] 03-17-2023 Miscellaneous Notes SITUATION: VENDING TECHNICIAN routine visit. spouse present during today's visit. patient reports the following since the last homecare visit: medications/allergies--no changes, no fall. patient reports . BACKGROUND: Diagnoses (reason for Home Care): Cerebral infarction, unspecified Past Medical History: Acute Cva (Cerebrovascular Accident) (Hcc) Htn (Hypertension) Paroxysmal Svt (Supraventricular Tachycardia) Weight Bearing or Surgical Precautions: fall risk ASSESSMENT: Pt reports no increased pain during today's PT tx. Focus of visit: Establish HEP ( LE ex's 2-3 x a day ), walking program ( walk with walker every hour during the day.). Plan of care, goals, and visit frequency reviewed and agreed upon with patient and/or caregiver. Current Discharge Plan: outpatient rehab Anticipate discharge by 04/04/23 RECOMMENDATION: Pt would cont to benefit from further PT tx to improve LE/ trunk strength and balance in order to decrease assistance with transfers, walking, and stair negotiation. Next visit to focus on: Gt training with std cane. See intervention summary for intervention/education details. documented in this encounter [facility] 03-16-2023 Miscellaneous Notes SITUATION: OT evaluation only patient present during today's visit. patient reports the following since the last homecare visit: medications/allergies--no changes, no fall. BACKGROUND: Diagnoses (reason for Home Care): Cerebral infarction, unspecified Past Medical History: Acute Cva (Cerebrovascular Accident) (Hcc) Htn (Hypertension) Paroxysmal Svt (Supraventricular Tachycardia) Weight Bearing or Surgical Precautions: fall risk ASSESSMENT: Patient evaluated by [facility] Homecare occupational therapy. Reviewed and explained homecare services. Plan of care, goals and visit frequency developed, reviewed, and agreed upon with patient and/or caregiver. Patient identified goals: to stronger. Patient will benefit from continued occupational therapy to address the following deficits functional activity including I/ADLs, UE strength/ROM and functional transfers as evidenced by score on Modified Forrest Index 70 /100. Current Discharge Plan:remain in community with/without caregiver support. Anticipate discharge by 04/08/23 RECOMMENDATION: Plan for next visit to focus on right ue neuro altaf home safety and transfers. See intervention summary for intervention/education details. documented in this encounter [facility] 03-16-2023 Miscellaneous Notes [facility] routine visit completed today. spouse also present during today's visit. patient and caregiver reports the following: Allergies--reviewed Medications--full medication reconciliation completed and reviewed current medications Falls--None DME-Reviewed and added to chart BACKGROUND: Acute Cva Htn Paroxysmal Svt Reason for Home Care: CP/neuro assess fall assess ASSESSMENT: SN greeted at door by caregiver. Upon entrance patient found in chair Patient appears in no acute distress. Patient/CG concerns verbalized today: none Vitals (see flow sheet for details): stable SN findings today: SN reviewed meds and pt taking as prescribed Pt with occasional slurred speech, understandable Denies falls Pt with right hemiparesis, ambulatling with wheeled walker Pt lives with supportive who assist pt when needed Denies SOB See intervention summary for education details. Patient demonstrated a need for further skilled SN services for chronic disease management & education, medication education and safety. Current Discharge plan: self-care RECOMMENDATION: Next visit to focus on (be specific): CP neuro assess documented in this encounter [facility] 03-15-2023 Miscellaneous Notes There has been a delay in service for Home Care OT Evaluation for this patient due to schedule conflict. Patient was notified on 03/15/2023. Thank you for this referral, please contact us with any questions. 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 New orders: Yes, ST [id number] and for ORTHOTIST OR PROSTHETIST intervention. Follow up needed: None SITUATION: spouse present during today's visit. patient and caregiver reports the following changes since the last homecare visit: medications/allergies--None, falls--None. patient reports he does not have difficulty eating, just some slurred speech which has been improving. BACKGROUND: Diagnoses (reason for Home Care): HTN Discharged/Referral from acute care hospital on 03/06 following treatment for Acute CVA. 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 Diet at current time: regular foods, regular liquids Patient stated goal: to know what to do to get better Objective: Patient presents with:dysarthria (see assessment for full details). ASSESSMENT: Patient demonstrated a need for further skilled ST services for instruction and education related to speech skills and oral motor skills. Plan of care, progress towards goals, and visit frequency reviewed/developed (agreement) with patient and caregiver. Current Discharge plan: self-care anticipated discharge date 04/03/23. RECOMMENDATION: Recommend speech therapy intervention Other: 2month 1 to focus on speech and oral motor skills. See intervention summary for intervention/education details. documented in this encounter [facility] 03-13-2023 Miscellaneous Notes SN unmade visit today- declined a SN visit and states he is doing well and would like seen just once this week. documented in this encounter [facility] 03-13-2023 Miscellaneous Notes SN unmade today- is declining a SN visit and states he is doing good. Would just like one SN visit this week. documented in this encounter [facility] 03-10-2023 Miscellaneous Notes SITUATION: [facility] SOC visit completed today. spouse also present during today's visit. patient and caregiver reports the following: Allergies--reviewed Medications--full medication reconciliation completed Falls--None DME-Reviewed and added to chart BACKGROUND: HTN Discharged/Referral from acute care hospital on 03/06 following treatment for Acute CVA. Pertinent referral information or other diagnoses that may affect plan of care: HTN, Bradycardia ASSESSMENT: SN greeted at door by caregiver. Upon entrance patient found in chair Patient appears in no acute distress. Patient lives at home with spouse. Home environment: clean and uncluttered. SOC booklet reviewed & completed with patient and caregiver and consent obtained for Home Care services. Patient/CG concerns verbalized today: none Vitals (see flow sheet for details): stable SN findings today: presented to ED for evaluation of right-sided weakness, dysarthria, balance issues. They state Monday evening around 5:30 PM, patient started walking funny after having the back pain and was feeling tired. The next morning on Monday at 9 AM, patient started having right-sided pain, right upper and lower extremity weakness, slurring of his words, sleeping a lot and was not talking much. He denied any h/a, difficulty swallowing. Hospital report reads the CT of brain showed no acute findings, no evidence of acute infarction, intracranial hemorrhage or intracranial mass lesion. CTA of the head and neck showed no evidence of hemodynamically significant stenosis, intraluminal filling defect, abrupt vessel occlusion, aneurysm or vascular malformation in the intracranial and extracranial arterial vasculature. He has some slurred speech, yet he can be understood. He has right upper and lower extremity weakness. His hand grasp strength very weak on right side, he has difficulty moving fingers. He can move right arm, yet not all the way above his head unless he uses the left hand to lift the right arm. He is ambulating with a wheeled walker, yet his gait is unsteady, he is impulsive, ambulating too fast. He needs mod. assist to go up steps, stand by assist when ambulating. He is high risk for falls at this time. He said the doctors were saying he really did not have a stroke, yet now he is still to follow up with neurology and cardiology. States he is going to be getting a Ziometer to wear for 2 weeks beginning next week. States he has hx of bradycardia & he states they heard an irregular HR at times when he was hospitalized. He has a brief episode of paroxysmal SVT when hospitalized. At times during visit he was impulsive, some difficulty focusing, talking over his . He is new on asa, atorvastatin, Plavix. SN will continue medication education, safety/fall prevention measures, began instruction on green, yellow, red zones on s/s CVA, when to seek medical attention, they verbalized understanding He said he has had sinus drainage & coughs, yet non productive. He wanted to know if there was something he can take for sinus drainage/cough. 10:30am: SN did call Marianne Curiel APRN CNP, reported opened case today, asked for ok for SN 1wk1, 2wk1, 1wk3, also asked re: something for cough/sinus drainage. She did give the verbal ok for these SN orders & states Claritin or Mucinex would be ok. SN reported this to , she verbalized understanding. See intervention summary for education details and skills performed. Plan of care and visit frequency established with patient and caregiver and plan of care agreed upon. Patient demonstrated a need for further skilled SN services for chronic disease management & education, medication education and safety. RECOMMENDATION: Visit Frequency: SN 1x/week x1week, 2x/week x1week, 1x/week [id number] Need for additional services: Patient agreeable to PT, OT and ST referrals. Patient declined N/A referrals. Additional concerns to be followed up on: NONE Next visit to focus on (be specific): med education, disease mgmt education documented in this encounter [facility] 03-06-2023 Miscellaneous Notes Welcome Home Call: a. Date and Time: 4:32 PM 03/06/2023 b. 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 acute left pontine infarction. No evidence of hemorrhagic transformation. No evidence of midline shift or herniation. Patient admitted with strokelike symptoms. CT brain ,CTA head and neck unremarkable. EKG negative for A-fib/flutter. Case discussed with [place] neurologist on-call Dr. Palm and she recommends to continue current mgt with aspirin and Lipitor for now. Defer further management to a.m. teleneurology. Shelley Penny MD [facility] 03-05-2023 Note HNO ID: [id number] Author: Epifanio Boston [facility] Service: Pharmacy Author Type: Pharmacist Type: Plan of Care Filed: 03/05/2023 4:01 PM Note Text: PHARMACY MEDICATION REVIEW Patient Name: Iron Conde : 1970 The following medications were updated within the VENDING TECHNICIAN medication list: Medications ADDED to VENDING TECHNICIAN medication list Lisinopril-hydrochlorothiazide Medications CHANGED on VENDING TECHNICIAN medication list none Medications REMOVED from VENDING TECHNICIAN medication list none Additional comments: N/A The below information represents the best possible medication history: Yes Medication history completed by: ED Pharmacist Epifanio Boston RPh Source of history: Patient: Reliability of source: Appears reliable, clearly identified: Medication name and Timing of last dose and Pharmacy records Medication nonadherence identified: No barriers noted Reconciliation completed: No, patient not yet admitted. Patient interested in Bedside Delivery Services or using OP Pharmacy at discharge? Unable to assess Preferred outpatient pharmacy: [id number] - [place] [address] [address] - [phone] Allergies: No Known Allergies Prior to Admission Medications Prescriptions Last Dose Informant Patient Reported? Taking? lisinopril-hydroCHLOROthiazide (ZESTORETIC) 20-12.5 mg per tablet 03/05/2023 Yes Yes Sig: Take 1 tablet by mouth once daily. 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)- Primary [facility] Diagnosis Pain in right shoulder Cervicalgia [facility]* Diagnosis Pain in right shoulder- Primary Cervicalgia Pain in right shoulder Cervicalgia documented in this encounter [facility]'s home Plan of care note* Visit Details Visit Type -SN SOC Discipline -[facility] Problems Problem Description Start Date Status Goals Interve ntions Medication Education Disciplines: Skilled Services 03/10/2023 Active 1 goal linked to scheduled/documen farhad intervention 1 goal intervention scheduled/document ed in this visit Sepsis Disciplines: Skilled Services 03/10/2023 Active 1 goal linked to scheduled/documen farhad intervention 1 goal intervention scheduled/document ed in this visit Physician Specific Parameters Disciplines: Skilled Services 03/10/2023 Active 1 goal linked to scheduled/documen farhad intervention 1 goal intervention scheduled/document ed in this visit Risk for Falls Disciplines: Skilled Services 03/10/2023 Active 1 goal linked to scheduled/documen farhad intervention 1 goal intervention scheduled/document ed in this visit Pain Disciplines: Skilled Services 03/10/2023 Active 1 goal linked to scheduled/documen farhad intervention 1 goal intervention scheduled/document ed in this visit Nutrition/Hydration Disciplines: Skilled Services 03/10/2023 Active 1 goal linked to scheduled/documen farhad intervention 1 goal intervention scheduled/document ed in this visit High Risk Medications Disciplines: Skilled Services 03/10/2023 Active 1 goal linked to scheduled/documen farhad intervention 1 goal intervention scheduled/document ed in this visit Advance Directives Disciplines: Skilled Services 03/10/2023 Active 1 goal linked to scheduled/documen farhad intervention 1 goal intervention scheduled/document ed in this visit SN Neurological Disciplines: SN 03/10/2023 Active 1 goal linked to scheduled/documen farhad intervention 1 goal intervention scheduled/document ed in this visit SN Edema Disciplines: SN 03/10/2023 Active 1 goal linked to scheduled/documen farhad intervention 1 goal intervention scheduled/document ed in this visit SN Cardiovascular Condition Disciplines: SN 03/10/2023 Active 1 goal linked to scheduled/documen farhad intervention 1 goal intervention scheduled/document ed in this visit SN Learning Assessment Disciplines: SN 03/10/2023 Active 1 goal linked to scheduled/documen farhad intervention 1 goal intervention scheduled/document ed in this visit Goals Goal Associated Problem Outcome Goal Met? Visit Notes Patient/caregiver will demonstrate ability to obtain, store, identify and administer ordered medications, keep accurate medication list in home, and adhere to medication schedule Description: Patient/caregiver will demonstrate ability to obtain, store, identify and administer ordered medications, keep accurate medication list in home, and adhere to medication schedule by 05/08/23. Medication Education No Patient/caregiver will be able to identify and report symptoms of sepsis Description: Patient/caregiver will be able to identify signs/symptoms of sepsis infection and will verbalize actions to take if suspected by 05/08/23. Sepsis No Patient to maintain parameters within physician-specified ranges throughout certification period Physician Specific Parameters No Manage Risk for falls Description: Patient/caregiver will verbalize knowledge of individualized fall prevention strategies by 05/08/23. Risk for Falls No Manage Pain Description: Patient/caregiver will verbalize knowledge and understanding of appropriate techniques to control pain, including non-pharmacological techniques. Patient will verbalize or demonstrate an acceptable level of pain as evidenced by a pain score of 2/10 and improvement in ability to perform activities of daily living to be achieved by 05/08/23. Pain No Manage Nutrition/Hydration Description: Patient/caregiver will verbalize/demonstrate knowledge of prescribed diet and/or healthy nutrition to be achieved by 05/08/23 Nutrition/Hydration No Patient/caregiver will teach back high risk medication side effect and precaution education High Risk Medications No Patient/caregiver will make healthcare providers aware of and any changes to Advance Directives throughout certification period Advance Directives No Patient demonstrates baseline or optimal neurological functioning prior to discharge Description: Patient and/or caregiver will verbalize and/or demonstrate understanding of signs and symptoms of neurological disease process and management of superintendent container terminal effects and risk factors by 05/08/23,. SN Neurological No Patient will have improved edema management Description: Patient/caregiver will demonstrate an understanding of edema management strategies as evidenced by resolution or stabilization of edema by 04/04/23. SN Edema No Improved management of cardiovascular disease Description: Improve patient/caregiver management of cardiac disease as evidenced by patient/caregiver ability to teach back cardiac management strategies by 05/08/23. SN Cardiovascular Condition No Demonstrate understanding of education Description: Patient and/or caregiver will verbalize understanding of educational instruction provided throughout certification period. SN Learning Assessment No Interventions Intervention Associated Problem/Goal Status Variance Visit Notes Medication Education Description: Evaluate/instruct patient/caregiver on obtaining, storing, identifying and administering ordered medications as well as keeping accurate medication list in the home and adhereing to medication schedule Problem:Medication Education Goal:Patient/caregiver will demonstrate ability to obtain, store, identify and administer ordered medications, keep accurate medication list in home, and adhere to medication schedule Completed Patient and Caregiver instructed on importance of keeping accurate medication list in home, adhering to medication schedule, proper storage of medications, Medication, route, dose, frequency, purpose, and side effects of current med list medications and disposing of old and out of date medications. Risk of Sepsis Description: Patient is at risk for sepsis. Monitor closely for s/s of sepsis. Problem:Sepsis Goal:Patient/caregiver will be able to identify and report symptoms of sepsis Completed SPO2 Description: Notify Tom Curiel APRN, CNP if pulse ox is <92% at rest. Problem:Physician Specific Parameters Goal:Patient to maintain parameters within physician-specified ranges throughout certification period Completed Instruct on individual fall risk factors and strategies to prevent falls and injuries caused by falls. Problem:Risk for Falls Goal:Manage Risk for falls Completed SN: Patient and Caregiver instructed on Managing Impaired Functional Mobility: Use assistive device(s): wheeled walker and Caregiver to provide assist with: Transfers and ADL/IADLs Managing Pain: Recommended pain medication schedule and management of side effects to minimize fall risk Instruct on pain and instruct on strategies to control pain Problem:Pain Goal:Manage Pain Completed patient and caregiver instructed on techniques to control pain including Non-Pharmacological measures; rest, positioning/elevatio n, mobility/therapeutic exercise and distraction. Define patient s appetite/hydration status and implement strategies to improve compliance with prescribed diet and/or healthy nutrition. Problem:Nutrition/Hydr ation Goal:Manage Nutrition/Hydration Completed instructed patient and caregiver on implementing strategies to comply with prescribed diet, healthy nutrition and adequate hydration Antiplatelet- educated on high risk medication Problem:High Risk Medications Goal:Patient/caregiver will teach back high risk medication side effect and precaution education Completed patient and caregiver educated on taking medication(s) as prescribed by provider. Do not stop medication or alter doses without speaking with your provider. Discuss medication effectiveness or side effect concerns with your provider and home care team. Discuss all medications you are taking, even [id number]-[id number] medicines, with your provider and pharmacist since many drugs can interact with antiplatelet medications. If you forget to take a dose, DO NOT take a double dose. Take the missed dose as soon as possible on the same day. DO NOT take a double dose the next day to make up for the missed dose. Watch for signs of abnormal or excessive bleeding and bruising (refer to Bleeding Precautions education). Call your health care provider right away if you suspect something is wrong. Determine patient's Advance Directive Status Description: Patient does not have advance directives. Patient/Caregiver declined Advance Directive information. Problem:Advance Directives Goal:Patient/caregiver will make healthcare providers aware of and any changes to Advance Directives throughout certification period Completed Discussed Advance Directives with Patient and/or Caregiver. Referred patient to Home Care handbook for further information on Healthcare DPOA & Living Will. Assess patient neurological and behavioral status and instruct patient and/or caregiver on neurological disease process, superintendent container terminal effects, and effective management strategies Description: Patient has diagnosis of CVA. Problem:SN Neurological Goal:Patient demonstrates baseline or optimal neurological functioning prior to discharge Completed patient and caregiver instructed on disease process and monitoring and reporting symptoms of elevated blood pressure, headaches, swallowing difficulty, aspiration, speech changes, mental status changes, vision changes, weakness, impaired movement, tremors and increased lethargy, management of mcc effects contractures, dysphagia, aphasia, dysarthria and spasticity, risk factors and when to seek medical attention and when to call 911. Assess and instruct on measures to reduce edema Problem:SN Edema Goal:Patient will have improved edema management Completed patient and caregiver instructed on elevation and benefits of activity. Instruct on cardiovascular disease process and management of condition Description: Patient has following cardiac diagnosis(es): Hypertension. Problem:SN Cardiovascular Condition Goal:Improved management of cardiovascular disease Completed patient and caregiver instructed on cardiac disease process, self monitoring & symptom reporting and Cardiac Diet. Instruct and educate on knowledge deficits Problem:SN Learning Assessment Goal:Demonstrate understanding of education Completed patient and caregiver verbalize and/or demonstrate understanding of nursing education completed today. Education methods include: verbal cues and written instructions. Further education required to improve knowledge and compliance with fall prevention/home safety strategies, neurological disease management and nutrition. documented in this encounter [facility]'s home Plan of care note* Visit Details Visit Type -SECTION CREWS ACTIVITIES CLERK EVAL Discipline -Speech Language Pathology Problems Problem Description Start Date Status Goals Interve ntions Medication Education Disciplines: Skilled Services 03/10/2023 Active 1 goal linked to scheduled/document ed intervention 1 goal intervention scheduled/document ed in this visit Sepsis Disciplines: Skilled Services 03/10/2023 Active 1 goal linked to scheduled/document ed intervention 1 goal intervention scheduled/document ed in this visit Physician Specific Parameters Disciplines: Skilled Services 03/10/2023 Active 1 goal linked to scheduled/document ed intervention 1 goal intervention scheduled/document ed in this visit Risk for Falls Disciplines: Skilled Services 03/10/2023 Active 1 goal linked to scheduled/document ed intervention 1 goal intervention scheduled/document ed in this visit Pain Disciplines: Skilled Services 03/10/2023 Active 1 goal linked to scheduled/document ed intervention 1 goal intervention scheduled/document ed in this visit Nutrition/Hydr ation Disciplines: Skilled Services 03/10/2023 Active 1 goal linked to scheduled/document ed intervention 1 goal intervention scheduled/document ed in this visit High Risk Medications Disciplines: Skilled Services 03/10/2023 Active 1 goal linked to scheduled/document ed intervention 1 goal intervention scheduled/document ed in this visit SECTION CREWS ACTIVITIES CLERK Referral Disciplines: Skilled Services 03/10/2023 Resolved on 03/13/2023 1 goal linked to scheduled/document ed intervention 1 goal intervention scheduled/document ed in this visit SECTION CREWS ACTIVITIES CLERK Learning Assessment Disciplines: SECTION CREWS ACTIVITIES CLERK 03/13/2023 Active 1 goal linked to scheduled/document ed intervention 1 goal intervention scheduled/document ed in this visit SECTION CREWS ACTIVITIES CLERK Speech Production/Int elligibility Disciplines: SECTION CREWS ACTIVITIES CLERK 03/13/2023 Active 1 goal linked to scheduled/document ed intervention 1 goal intervention scheduled/document ed in this visit Goals Goal Associated Problem Outcome Goal Met? Visit Notes Patient/caregiver will demonstrate ability to obtain, store, identify and administer ordered medications, keep accurate medication list in home, and adhere to medication schedule Description: Patient/caregiver will demonstrate ability to obtain, store, identify and administer ordered medications, keep accurate medication list in home, and adhere to medication schedule by 05/08/23. Medication Education No Patient/caregiver will be able to identify and report symptoms of sepsis Description: Patient/caregiver will be able to identify signs/symptoms of sepsis infection and will verbalize actions to take if suspected by 05/08/23. Sepsis No Patient to maintain parameters within physician-specified ranges throughout certification period Physician Specific Parameters No Manage Risk for falls Description: Patient/caregiver will verbalize knowledge of individualized fall prevention strategies by 05/08/23. Risk for Falls No Manage Pain Description: Patient/caregiver will verbalize knowledge and understanding of appropriate techniques to control pain, including non-pharmacological techniques. Patient will verbalize or demonstrate an acceptable level of pain as evidenced by a pain score of 2/10 and improvement in ability to perform activities of daily living to be achieved by 05/08/23. Pain No Manage Nutrition/Hydration Description: Patient/caregiver will verbalize/demonstrate knowledge of prescribed diet and/or healthy nutrition to be achieved by 05/08/23 Nutrition/Hydration No Patient/caregiver will teach back high risk medication side effect and precaution education High Risk Medications No Patient will be referred to additional discipline as needed SECTION CREWS ACTIVITIES CLERK Referral Completed Yes ST eval completed 03/13/23 Patient/Caregiver Demonstrates understanding of education Description: patient and caregiver will understand educational instruction, to be achieved by 04/03/23. SECTION CREWS ACTIVITIES CLERK Learning Assessment No Improve Articulation and Intelligiblity Description: Patient will demonstrate improved production of sentences and conversation with appropriate articulator placement or use of compensatory strategies with no cues with/in 90% accuracy. To be achieved by 04/03/23. SECTION CREWS ACTIVITIES CLERK Speech Production/Intelligib ility No Interventions Intervention Associated Problem/Goal Status Variance Visit Notes Medication Education Description: Evaluate/instruct patient/caregiver on obtaining, storing, identifying and administering ordered medications as well as keeping accurate medication list in the home and adhereing to medication schedule Problem:Medication Education Goal:Patient/caregive r will demonstrate ability to obtain, store, identify and administer ordered medications, keep accurate medication list in home, and adhere to medication schedule Completed Patient instructed on adhering to medication schedule. Risk of Sepsis Description: Patient is at risk for sepsis. Monitor closely for s/s of sepsis. Problem:Sepsis Goal:Patient/caregive r will be able to identify and report symptoms of sepsis Completed SPO2 Description: Notify Tom Curiel APRN QUILT STUFFER if pulse ox is <92% at rest. Problem:Physician Specific Parameters Goal:Patient to maintain parameters within physician-specified ranges throughout certification period Completed Instruct on individual fall risk factors and strategies to prevent falls and injuries caused by falls. Problem:Risk for Falls Goal:Manage Risk for falls Completed SECTION CREWS ACTIVITIES CLERK: Patient and Caregiver instructed on Managing Impaired Functional Mobility: Use assistive device(s): front wheeled walker. Instruct on pain and instruct on strategies to control pain Problem:Pain Goal:Manage Pain Completed patient and caregiver instructed on techniques to control pain including Pharmacological measures and Non-Pharmacological measures; rest and positioning/elevation . Define patient s appetite/hydration status and implement strategies to improve compliance with prescribed diet and/or healthy nutrition. Problem:Nutrition/Hyd ration Goal:Manage Nutrition/Hydration Completed instructed patient and caregiver on implementing strategies to comply with healthy nutrition and adequate hydration Antiplatelet- educated on high risk medication Problem:High Risk Medications Goal:Patient/caregive r will teach back high risk medication side effect and precaution education Completed patient educated on taking medication(s) as prescribed by provider. Do not stop medication or alter doses without speaking with your provider. Discuss medication effectiveness or side effect concerns with your provider and home care team. Discuss all medications you are taking, even [id number] medicines, with your provider and pharmacist since many drugs can interact with antiplatelet medications. If you forget to take a dose, DO NOT take a double dose. Take the missed dose as soon as possible on the same day. DO NOT take a double dose the next day to make up for the missed dose. Watch for signs of abnormal or excessive bleeding and bruising (refer to Bleeding Precautions education). Call your health care provider right away if you suspect something is wrong. SECTION CREWS ACTIVITIES CLERK evaluation and treatment Description: ST Referral eval and treat for Impaired memory and establish HEP. Problem:SECTION CREWS ACTIVITIES CLERK Referral Goal:Patient will be referred to additional discipline as needed Completed Assessment of patient/caregiver knowledge deficit and educational instruction Problem:SECTION CREWS ACTIVITIES CLERK Learning Assessment Goal:Patient/Caregive r Demonstrates understanding of education Completed Education methods include: verbal cues and visual cues. Further education required to improve knowledge and compliance with speech intelligibility strategies. Articulation Instruction Intelligibility Training Motor Planning Precision Training Speech Intelligiblity Exercise Problem:SECTION CREWS ACTIVITIES CLERK Speech Production/Intelligib ility Goal:Improve Articulation and Intelligiblity Completed SECTION CREWS ACTIVITIES CLERK instructed patient to articulator placement for production of the following sound(s) l in words and phrases with minimal cues with/in 80% trials. documented in this encounter [facility] home Plan of care note* Visit Details Visit Type -SN ROUTINE Discipline -[facility] Problems Problem Description Start Date Status Goals Interve ntions Medication Education Disciplines: Skilled Services 03/10/2023 Active 1 goal linked to scheduled/docume nted intervention 1 goal intervention scheduled/documen farhad in this visit Sepsis Disciplines: Skilled Services 03/10/2023 Active 1 goal linked to scheduled/docume nted intervention 1 goal intervention scheduled/documen farhad in this visit PT Referral Disciplines: Skilled Services 03/10/2023 Resolved on 03/16/2023 1 goal linked to scheduled/docume nted intervention Physician Specific Parameters Disciplines: Skilled Services 03/10/2023 Active 1 goal linked to scheduled/docume nted intervention 1 goal intervention scheduled/documen farhad in this visit Risk for Falls Disciplines: Skilled Services 03/10/2023 Active 1 goal linked to scheduled/docume nted intervention 1 goal intervention scheduled/documen farhad in this visit Pain Disciplines: Skilled Services 03/10/2023 Active 1 goal linked to scheduled/docume nted intervention 1 goal intervention scheduled/documen farhad in this visit SN Cardiovascular Condition Disciplines: SN 03/10/2023 Active 1 goal linked to scheduled/docume nted intervention 1 goal intervention scheduled/documen farhad in this visit IT QUALITY ASSURANCE ANALYST Referral Disciplines: Skilled Services 03/13/2023 Resolved on 03/16/2023 1 goal linked to scheduled/docume nted intervention Goals Goal Associated Problem Outcome Goal Met? Visit Notes Patient/caregiver will demonstrate ability to obtain, store, identify and administer ordered medications, keep accurate medication list in home, and adhere to medication schedule Description: Patient/caregiver will demonstrate ability to obtain, store, identify and administer ordered medications, keep accurate medication list in home, and adhere to medication schedule by 05/08/23. Medication Education No Patient/caregiver will be able to identify and report symptoms of sepsis Description: Patient/caregiver will be able to identify signs/symptoms of sepsis infection and will verbalize actions to take if suspected by 05/08/23. Sepsis No Patient will be referred to additional discipline as needed PT Referral Completed Yes goal met Patient to maintain parameters within physician-specified ranges throughout certification period Physician Specific Parameters No Manage Risk for falls Description: Patient/caregiver will verbalize knowledge of individualized fall prevention strategies by 05/08/23. Risk for Falls No Manage Pain Description: Patient/caregiver will verbalize knowledge and understanding of appropriate techniques to control pain, including non-pharmacological techniques. Patient will verbalize or demonstrate an acceptable level of pain as evidenced by a pain score of 2/10 and improvement in ability to perform activities of daily living to be achieved by 05/08/23. Pain No Improved management of cardiovascular disease Description: Improve patient/caregiver management of cardiac disease as evidenced by patient/caregiver ability to teach back cardiac management strategies by 05/08/23. SN Cardiovascular Condition No Patient will be referred to additional discipline as needed IT QUALITY ASSURANCE ANALYST Referral Completed Yes goal met Interventions Intervention Associated Problem/Goal Status Variance Visit Notes Medication Education Description: Evaluate/instruct patient/caregiver on obtaining, storing, identifying and administering ordered medications as well as keeping accurate medication list in the home and adhereing to medication schedule Problem:Medication Education Goal:Patient/caregiver will demonstrate ability to obtain, store, identify and administer ordered medications, keep accurate medication list in home, and adhere to medication schedule Completed Patient instructed on importance of keeping accurate medication list in home, adhering to medication schedule and proper storage of medications. Risk of Sepsis Description: Patient is at risk for sepsis. Monitor closely for s/s of sepsis. Problem:Sepsis Goal:Patient/caregiver will be able to identify and report symptoms of sepsis Completed SPO2 Description: Notify Tom Curiel APRN QUILT STUFFER if pulse ox is <92% at rest. Problem:Physician Specific Parameters Goal:Patient to maintain parameters within physician-specified ranges throughout certification period Completed Instruct on individual fall risk factors and strategies to prevent falls and injuries caused by falls. Problem:Risk for Falls Goal:Manage Risk for falls Completed SN: Patient instructed on Eliminating Environmental Hazards: Keep pathways clear, Keep pets out of pathways, Remove unsafe rugs and Move furniture from pathways Instruct on pain and instruct on strategies to control pain Problem:Pain Goal:Manage Pain Completed denies pain Instruct on cardiovascular disease process and management of condition Description: Patient has following cardiac diagnosis(es): Hypertension. Problem:SN Cardiovascular Condition Goal:Improved management of cardiovascular disease Completed patient instructed on cardiac disease process, self monitoring & symptom reporting, DVT/PE prevention and Cardiac Diet. documented in this encounter [facility] home Plan of care note* Visit Details Visit Type -OT EVAL Discipline -Occupational Therapy Problems Problem Description Start Date Status Goals Interve ntions OT Referral Disciplines: Skilled Services 03/10/2023 Resolved on 03/16/2023 1 goal linked to scheduled/documen farhad intervention 1 goal intervention scheduled/document ed in this visit Physician Specific Parameters Disciplines: Skilled Services 03/10/2023 Active 1 goal linked to scheduled/documen farhad intervention 1 goal intervention scheduled/document ed in this visit OT Learning Assessment Disciplines: OT 03/16/2023 Active 1 goal linked to scheduled/documen farhad intervention 1 goal intervention scheduled/document ed in this visit OT Functional Transfers Disciplines: OT 03/16/2023 Active 1 goal linked to scheduled/documen farhad intervention 1 goal intervention scheduled/document ed in this visit OT Neurologic Condition Disciplines: OT 03/16/2023 Active 1 goal linked to scheduled/documen farhad intervention 1 goal intervention scheduled/document ed in this visit Goals Goal Associated Problem Outcome Goal Met? Visit Notes Patient will be referred to additional discipline as needed OT Referral Completed Yes ot eval completed Patient to maintain parameters within physician-specified ranges throughout certification period Physician Specific Parameters No Demonstrate understanding of education Description: Patient and/or caregiver will understand educational instruction to be achieved by 04/08/23. OT Learning Assessment No Improved Functional Transfers Description: patient will demonstrate safe transfers to/from toilet with independent assistance and no verbal cues with use of DME to be achieved by 04/08/23. OT Functional Transfers No Manage Neurologic Condition Description: Improve patient and/or caregiver understanding of neurologic condition and management, as evidenced by patient and/or caregiver ability to verbalize, demonstrate, teach back of instruction at a minimum of two strategies. To be achieved by 04/08/23. OT Neurologic Condition No Interventions Intervention Associated Problem/Goal Status Variance Visit Notes OT evaluation and treatment Description: Evaluate and treat for the assessment of functional deficits and establishment of appropriate interventions and education to address: safety awareness, home safety and falls prevention recommendations and upper extremity strengthening and home exercise program training. Problem:OT Referral Goal:Patient will be referred to additional discipline as needed Completed SPO2 Description: Notify Tom Curiel APRN QUILT STUFFER if pulse ox is <92% at rest. Problem:Physician Specific Parameters Goal:Patient to maintain parameters within physician-specified ranges throughout certification period Completed Instruct and educate on knowledge deficits Problem:OT Learning Assessment Goal:Demonstrate understanding of education Completed Education methods include: verbal cues. Patient/Caregiver require further education to improve knowledge and compliance with fall prevention strategies, home safety, functional transfers and home exercise program. Transfer Training Problem:OT Functional Transfers Goal:Improved Functional Transfers Completed Instruct patient on safe transfers and proper techniques including slowing down due to impulsivity to perform to and from toilet with superv assistance and verbal cues for slowing down safety awareness. Instruct on self-management of post surgical and/or non-surgical neurologic intervention Problem:OT Neurologic Condition Goal:Manage Neurologic Condition Completed Instruct patient on neurological condition of CVA including monitoring and reporting symptoms of elevated blood pressure, headaches, speech changes, mental status changes, weakness and impaired movement and instruct on neuromuscular re-education and when to call 911. [facility] Visit Details Visit Type -VENDING TECHNICIAN ROUTINE Discipline -Physical Therapy Problems Problem Description Start Date Status Goals Interve ntions Physician Specific Parameters Disciplines: Skilled Services 03/10/2023 Active 1 goal linked to scheduled/document ed intervention 1 goal intervention scheduled/document ed in this visit Risk for Falls Disciplines: Skilled Services 03/10/2023 Active 1 goal linked to scheduled/document ed intervention 1 goal intervention scheduled/document ed in this visit Pain Disciplines: Skilled Services 03/10/2023 Active 1 goal linked to scheduled/document ed intervention 1 goal intervention scheduled/document ed in this visit PT Impaired Aerobic Capacity Disciplines: PT 03/14/2023 Active 1 goal linked to scheduled/document ed intervention 1 goal intervention scheduled/document ed in this visit PT Impaired muscle performance and/or ROM Disciplines: PT 03/14/2023 Active 1 goal linked to scheduled/document ed intervention 1 goal intervention scheduled/document ed in this visit PT Impaired mobility Disciplines: PT 03/14/2023 Active 1 goal linked to scheduled/document ed intervention 1 goal intervention scheduled/document ed in this visit PT Impaired gait Disciplines: PT 03/14/2023 Active 1 goal linked to scheduled/document ed intervention 1 goal intervention scheduled/document ed in this visit Goals Goal Associated Problem Outcome Goal Met? Visit Notes Patient to maintain parameters within physician-specified ranges throughout certification period Physician Specific Parameters No Manage Risk for falls Description: Patient/caregiver will verbalize knowledge of individualized fall prevention strategies by 05/08/23. Risk for Falls No Manage Pain Description: Patient/caregiver will verbalize knowledge and understanding of appropriate techniques to control pain, including non-pharmacological techniques. Patient will verbalize or demonstrate an acceptable level of pain as evidenced by a pain score of 2/10 and improvement in ability to perform activities of daily living to be achieved by 05/08/23. Pain No Improved Aerobic Capacity Description: LTG: Patient will demonstrate improved aerobic capacity to meet functional goals as evidenced by Rate of Percieved Exertion (RPE) of 0-2/10 during standing activity, to be achieved by 04/08/23. PT Impaired Aerobic Capacity No Improved Muscle Performance and/or ROM Description: LTG: Patient will demonstrate improved muscle performance to meet functional goals as evidenced by ability to tolerate 8 mins of standing activity, to be achieved by 04/08/23. LTG: Patient and/or caregiver will verbalize/demonstrate independence with home exercise program, to improve functional mobility, to be achieved by 04/08/23. PT Impaired muscle performance and/or ROM No Improved Transfers Description: LTG: Patient will demonstrate safe transfers to/from bed, chair and toilet independently, to be achieved by 04/08/23. PT Impaired mobility No Improved Gait Description: LTG: Patient will demonstrate improved gait ability as evidenced by ambulation 200 feet with no device independently, to return to safe household ambulation, in order to reach car in the driveway, to be achieved by 04/08/23. PT Impaired gait No Interventions Intervention Associated Problem/Goal Status Variance Visit Notes SPO2 Description: Notify Tom Curiel APRN QUILT STUFFER if pulse ox is <92% at rest. Problem:Physician Specific Parameters Goal:Patient to maintain parameters within physician-specified ranges throughout certification period Completed Instruct on individual fall risk factors and strategies to prevent falls and injuries caused by falls. Problem:Risk for Falls Goal:Manage Risk for falls Completed PT: Patient instructed on Managing Impaired Functional Mobility: Use assistive device(s): front wheeled walker and Caregiver to provide assist with: Ambulation, Steps, Transfers and ADL/IADLs Managing Pain Instruct on pain and instruct on strategies to control pain Problem:Pain Goal:Manage Pain Completed patient instructed on techniques to control pain including Non-Pharmacological measures; mobility/therapeutic exercise, distraction and use of DME/assistive devices. Physical Therapy Aerobic Capacity Training Problem:PT Impaired Aerobic Capacity Goal:Improved Aerobic Capacity Completed patient instructed on utilization of the Rate of Percieved Exertion (RPE) scale, to not exceed 3-6/10 indicating moderate to heavy intensity of activity. Developed, implemented, and instructed patient on physical therapy interventions completing: Pt advised to follow LE HEP ( 2-3 x a day ) and walking program ( Hourly walking during the day ). Physical Therapy Therapeutic Exercises Problem:PT Impaired muscle performance and/or ROM Goal:Improved Muscle Performance and/or ROM Completed patient instructed on strengthening exercises including: Bilateral LE standing ex's at countertop: x 10 / 1 set ( Marching, hip abd, hip ext, HS curls, heel to toe ). Vc's to slow down and to limit substitutions. patient instructed to perform home exercise program twice a day which included: Above exercises. Physical Therapy Transfer Training Problem:PT Impaired mobility Goal:Improved Transfers Completed Transfer training and instruction to patient on safe transfers to and from couch with supervision for safety. Physical Therapy Gait Training Problem:PT Impaired gait Goal:Improved Gait Completed Gait training and instruction to patient on safe ambulation with front wheeled walker for 100 feet with supervision, with verbal cues to slow down and for walker safety and management. Pt also amb with std cane up to 50 ft with SBA/ vc's to slow down and for sequencing. [facility] Visit Details Visit Type -SN DISC DC WO SIT Discipline -[facility] Problems Problem Description Start Date Status Goals Interve ntions Nutrition/Hydration Disciplines: Skilled Services 03/10/2023 Resolved on 03/20/2023 1 goal linked to scheduled/documen farhad intervention Advance Directives Disciplines: Skilled Services 03/10/2023 Resolved on 03/20/2023 1 goal linked to scheduled/documen farhad intervention SN Neurological Disciplines: SN 03/10/2023 Resolved on 03/20/2023 1 goal linked to scheduled/documen farhad intervention SN Edema Disciplines: SN 03/10/2023 Resolved on 03/20/2023 1 goal linked to scheduled/documen farhad intervention SN Cardiovascular Condition Disciplines: SN 03/10/2023 Resolved on 03/20/2023 1 goal linked to scheduled/documen farhad intervention SN Learning Assessment Disciplines: SN 03/10/2023 Resolved on 03/20/2023 1 goal linked to scheduled/documen farhad intervention Goals Goal Associated Problem Outcome Goal Met? Visit Notes Manage Nutrition/Hydration Description: Patient/caregiver will verbalize/demonstrate knowledge of prescribed diet and/or healthy nutrition to be achieved by 05/08/23 Nutrition/Hydration Completed Yes Type 2 diabetes mellitus with foot ulcer Patient/caregiver will make healthcare providers aware of and any changes to Advance Directives throughout certification period Advance Directives Completed Yes goal met Patient demonstrates baseline or optimal neurological functioning prior to discharge Description: Patient and/or caregiver will verbalize and/or demonstrate understanding of signs and symptoms of neurological disease process and management of mcc effects and risk factors by 05/08/23,. SN Neurological Completed Yes Type 2 diabetes mellitus with foot ulcer Patient will have improved edema management Description: Patient/caregiver will demonstrate an understanding of edema management strategies as evidenced by resolution or stabilization of edema by 04/04/23. SN Edema Completed Yes Type 2 diabetes mellitus with foot ulcer Improved management of cardiovascular disease Description: Improve patient/caregiver management of cardiac disease as evidenced by patient/caregiver ability to teach back cardiac management strategies by 05/08/23. SN Cardiovascular Condition Completed Yes Type 2 diabetes mellitus with foot ulcer Demonstrate understanding of education Description: Patient and/or caregiver will verbalize understanding of educational instruction provided throughout certification period. SN Learning Assessment Completed Yes Type 2 diabetes mellitus with foot ulcer documented in this encounter [facility] Plan of care note* Visit Details Visit Type -VENDING TECHNICIAN ROUTINE Discipline -Physical Therapy Problems Problem Description Start Date Status Goals Interve ntions Physician Specific Parameters Disciplines: Skilled Services 03/10/2023 Active 1 goal linked to scheduled/document ed intervention 1 goal intervention scheduled/documente d in this visit Risk for Falls Disciplines: Skilled Services 03/10/2023 Active 1 goal linked to scheduled/document ed intervention 1 goal intervention scheduled/documente d in this visit Pain Disciplines: Skilled Services 03/10/2023 Active 1 goal linked to scheduled/document ed intervention 1 goal intervention scheduled/documente d in this visit PT Impaired Aerobic Capacity Disciplines: PT 03/14/2023 Active 1 goal linked to scheduled/document ed intervention 1 goal intervention scheduled/documente d in this visit PT Impaired mobility Disciplines: PT 03/14/2023 Active 1 goal linked to scheduled/document ed intervention 1 goal intervention scheduled/documente d in this visit PT Impaired gait Disciplines: PT 03/14/2023 Active 1 goal linked to scheduled/document ed intervention 1 goal intervention scheduled/documente d in this visit PT Impaired balance Disciplines: PT 03/14/2023 Active 1 goal linked to scheduled/document ed intervention 1 goal intervention scheduled/documente d in this visit Goals Goal Associated Problem Outcome Goal Met? Visit Notes Patient to maintain parameters within physician-specified ranges throughout certification period Physician Specific Parameters No Manage Risk for falls Description: Patient/caregiver will verbalize knowledge of individualized fall prevention strategies by 05/08/23. Risk for Falls No Manage Pain Description: Patient/caregiver will verbalize knowledge and understanding of appropriate techniques to control pain, including non-pharmacological techniques. Patient will verbalize or demonstrate an acceptable level of pain as evidenced by a pain score of 2/10 and improvement in ability to perform activities of daily living to be achieved by 05/08/23. Pain No Improved Aerobic Capacity Description: LTG: Patient will demonstrate improved aerobic capacity to meet functional goals as evidenced by Rate of Percieved Exertion (RPE) of 0-2/10 during standing activity, to be achieved by 04/08/23. PT Impaired Aerobic Capacity No Improved Transfers Description: LTG: Patient will demonstrate safe transfers to/from bed, chair and toilet independently, to be achieved by 04/08/23. PT Impaired mobility No Improved Gait Description: LTG: Patient will demonstrate improved gait ability as evidenced by ambulation 200 feet with no device independently, to return to safe household ambulation, in order to reach car in the driveway, to be achieved by 04/08/23. PT Impaired gait No Improved Balance Description: LTG: Patient will demonstrate improved standing balance to meet functional goals as evidenced by ambulation with out ad with no lob for 200 feet to be achieved by 04/08/23. PT Impaired balance No Interventions Intervention Associated Problem/Goal Status Variance Visit Notes SPO2 Description: Notify D Moisés PEPE QUILT STUFFER if pulse ox is <92% at rest. Problem:Physician Specific Parameters Goal:Patient to maintain parameters within physician-specified ranges throughout certification period Completed Instruct on individual fall risk factors and strategies to prevent falls and injuries caused by falls. Problem:Risk for Falls Goal:Manage Risk for falls Completed PT: Patient instructed on Managing Impaired Functional Mobility: Use assistive device(s): front wheeled walker and single point cane and Caregiver to provide assist with: Ambulation and Steps Managing Pain Instruct on pain and instruct on strategies to control pain Problem:Pain Goal:Manage Pain Completed patient instructed on techniques to control pain including Non-Pharmacological measures; mobility/therapeutic exercise. Physical Therapy Aerobic Capacity Training Problem:PT Impaired Aerobic Capacity Goal:Improved Aerobic Capacity Completed patient instructed on utilization of the Rate of Percieved Exertion (RPE) scale, to not exceed 3-6/10 indicating moderate to heavy intensity of activity. Developed, implemented, and instructed patient on physical therapy interventions completing: Pt advised to follow LE HEP ( 3 x a day ) and walking program ( Hourly walking during the day ). Physical Therapy Transfer Training Problem:PT Impaired mobility Goal:Improved Transfers Completed Transfer training and instruction to patient on safe transfers to and from chair independent. Physical Therapy Gait Training Problem:PT Impaired gait Goal:Improved Gait Completed Gait training and instruction to patient on safe ambulation with front wheeled walker Independent. Pt also amb with std cane up to 200 feet x 1 with stand by assist, with verbal cues to slow down. Gt is slightly ataxic/ steppage gt. Pt also amb with out AD up to 100 ft x 2 with CGA. Physical Therapy Balance Training Problem:PT Impaired balance Goal:Improved Balance Completed Developed, implemented, and instructed patient on standing balance exercises with out AD. including: Backward and lateral walking with CGA Vc's to slow down and widen his ROCIO. Toe tapping to 8 step ht with CGA/ Vc's to slow down and not to drag his foot off the step. Step over cane forward and lateraly with CGA. No LOB observed; however, increased postural swaying present. [facility] Visit Details Visit Type -VENDING TECHNICIAN ROUTINE Discipline -Physical Therapy Problems Problem Description Start Date Status Goals Interve ntions Physician Specific Parameters Disciplines: Skilled Services 03/10/2023 Active 1 goal linked to scheduled/documente d intervention 1 goal intervention scheduled/documente d in this visit Risk for Falls Disciplines: Skilled Services 03/10/2023 Active 1 goal linked to scheduled/documente d intervention 1 goal intervention scheduled/documente d in this visit Pain Disciplines: Skilled Services 03/10/2023 Active 1 goal linked to scheduled/documente d intervention 1 goal intervention scheduled/documente d in this visit PT Impaired Aerobic Capacity Disciplines: PT 03/14/2023 Active 1 goal linked to scheduled/documente d intervention 1 goal intervention scheduled/documente d in this visit PT Impaired mobility Disciplines: PT 03/14/2023 Active 1 goal linked to scheduled/documente d intervention 1 goal intervention scheduled/documente d in this visit PT Impaired gait Disciplines: PT 03/14/2023 Active 2 goals linked to scheduled/documente d interventions 2 goal interventions scheduled/documente d in this visit PT Impaired balance Disciplines: PT 03/14/2023 Active 1 goal linked to scheduled/documente d intervention 1 goal intervention scheduled/documente d in this visit Goals Goal Associated Problem Outcome Goal Met? Visit Notes Patient to maintain parameters within physician-specified ranges throughout certification period Physician Specific Parameters No Manage Risk for falls Description: Patient/caregiver will verbalize knowledge of individualized fall prevention strategies by 05/08/23. Risk for Falls No Manage Pain Description: Patient/caregiver will verbalize knowledge and understanding of appropriate techniques to control pain, including non-pharmacological techniques. Patient will verbalize or demonstrate an acceptable level of pain as evidenced by a pain score of 2/10 and improvement in ability to perform activities of daily living to be achieved by 05/08/23. Pain No Improved Aerobic Capacity Description: LTG: Patient will demonstrate improved aerobic capacity to meet functional goals as evidenced by Rate of Percieved Exertion (RPE) of 0-2/10 during standing activity, to be achieved by 04/08/23. PT Impaired Aerobic Capacity No Improved Transfers Description: LTG: Patient will demonstrate safe transfers to/from bed, chair and toilet independently, to be achieved by 04/08/23. PT Impaired mobility No Improved Stair Climbing Description: LTG: Patient will demonstrate improved stair negotiation as evidenced by ascend/descend 14 steps with railing independently, to safely exit home, to be achieved by 04/08/23. PT Impaired gait No Improved Gait Description: LTG: Patient will demonstrate improved gait ability as evidenced by ambulation 200 feet with no device independently, to return to safe household ambulation, in order to reach car in the driveway, to be achieved by 04/08/23. PT Impaired gait No Improved Balance Description: LTG: Patient will demonstrate improved standing balance to meet functional goals as evidenced by ambulation with out ad with no lob for 200 feet to be achieved by 04/08/23. PT Impaired balance No Interventions Intervention Associated Problem/Goal Status Variance Visit Notes SPO2 Description: Notify Tom Curiel APRN QUILT STUFFER if pulse ox is <92% at rest. Problem:Physician Specific Parameters Goal:Patient to maintain parameters within physician-specified ranges throughout certification period Completed Instruct on individual fall risk factors and strategies to prevent falls and injuries caused by falls. Problem:Risk for Falls Goal:Manage Risk for falls Completed PT: Patient instructed on Managing Impaired Functional Mobility: Use assistive device(s): single point cane and Caregiver to provide assist with: Ambulation and Steps Managing Pain Instruct on pain and instruct on strategies to control pain Problem:Pain Goal:Manage Pain Completed patient instructed on techniques to control pain including Non-Pharmacological measures; positioning/elevation , mobility/therapeutic exercise, distraction and use of DME/assistive devices. Physical Therapy Aerobic Capacity Training Problem:PT Impaired Aerobic Capacity Goal:Improved Aerobic Capacity Completed patient instructed on utilization of the Rate of Percieved Exertion (RPE) scale, to not exceed 3-6/10 indicating moderate to heavy intensity of activity. Developed, implemented, and instructed patient on physical therapy interventions completing: Pt advised to follow LE HEP ( 2-3 x a day ) and walking program ( Hourly walking during the day ). Physical Therapy Transfer Training Problem:PT Impaired mobility Goal:Improved Transfers Completed Transfer training and instruction to patient on safe transfers to and from couch independent. Physical Therapy Stair Training Problem:PT Impaired gait Goal:Improved Stair Climbing Completed Stair training and instruction to patient on safe stair climbing, ascend/descend 5 steps, with std cane with stand by assist and verbal cues for sequencing. Physical Therapy Gait Training Problem:PT Impaired gait Goal:Improved Gait Completed Gait training and instruction to patient on safe ambulation with std cane 400 feet out side on level/ slightly sloped concrete with stand by assist, with verbal cues to use cane correctly. Pt amb with out AD inside home up to 50 ft with Supervision. Physical Therapy Balance Training Problem:PT Impaired balance Goal:Improved Balance Completed Developed, implemented, and instructed patient on standing balance exercises with out AD including: Backward and lateral walking with SBA ( No LOB observed ). Toe tapping to 8 step ht with SBA. Toe tapping to 12 step ht with CGA/ Min A. Step over forward, backward, and Laterly with SBA. documented in this [facility] Plan of care note* Visit Details Visit Type -OT ROUTINE Discipline -Occupational Therapy Problems Problem Description Start Date Status Goals Interve ntions Physician Specific Parameters Disciplines: Skilled Services 03/10/2023 Active 1 goal linked to scheduled/document ed intervention 1 goal intervention scheduled/documente d in this visit Risk for Falls Disciplines: Skilled Services 03/10/2023 Active 1 goal linked to scheduled/document ed intervention 1 goal intervention scheduled/documente d in this visit Pain Disciplines: Skilled Services 03/10/2023 Active 1 goal linked to scheduled/document ed intervention 1 goal intervention scheduled/documente d in this visit OT Learning Assessment Disciplines: OT 03/16/2023 Active 1 goal linked to scheduled/document ed intervention 1 goal intervention scheduled/documente d in this visit OT Upper Body Strength and/or ROM Disciplines: OT 03/16/2023 Active 1 goal linked to scheduled/document ed intervention 1 goal intervention scheduled/documente d in this visit OT Neurologic Condition Disciplines: OT 03/16/2023 Active 1 goal linked to scheduled/document ed intervention 1 goal intervention scheduled/documente d in this visit Goals Goal Associated Problem Outcome Goal Met? Visit Notes Patient to maintain parameters within physician-specified ranges throughout certification period Physician Specific Parameters No Manage Risk for falls Description: Patient/caregiver will verbalize knowledge of individualized fall prevention strategies by 05/08/23. Risk for Falls No Manage Pain Description: Patient/caregiver will verbalize knowledge and understanding of appropriate techniques to control pain, including non-pharmacological techniques. Patient will verbalize or demonstrate an acceptable level of pain as evidenced by a pain score of 2/10 and improvement in ability to perform activities of daily living to be achieved by 05/08/23. Pain No Demonstrate understanding of education Description: Patient and/or caregiver will understand educational instruction to be achieved by 04/08/23. OT Learning Assessment No Improved Strength and/or ROM Description: patient will verbalize/demonstrate independence with home exercise program, to improve functional performance, to be achieved by 04/08/23. Patient will demonstrate improved right shoulder and elbow active range of motion to full arom, to be achieved by 04/08/23. OT Upper Body Strength and/or ROM No Manage Neurologic Condition Description: Improve patient and/or caregiver understanding of neurologic condition and management, as evidenced by patient and/or caregiver ability to verbalize, demonstrate, teach back of instruction at a minimum of two strategies. To be achieved by 04/08/23. OT Neurologic Condition No Interventions Intervention Associated Problem/Goal Status Variance Visit Notes SPO2 Description: Notify Tom Curiel APRN QUILT STUFFER if pulse ox is <92% at rest. Problem:Physician Specific Parameters Goal:Patient to maintain parameters within physician-specified ranges throughout certification period Completed Instruct on individual fall risk factors and strategies to prevent falls and injuries caused by falls. Problem:Risk for Falls Goal:Manage Risk for falls Completed OT: Patient instructed on Managing Impaired Functional Mobility: Use assistive device(s): single point cane Instruct on pain and instruct on strategies to control pain Problem:Pain Goal:Manage Pain Completed patient instructed on techniques to control pain including Pharmacological measures and Non-Pharmacological measures; rest and positioning/elevation. Instruct and educate on knowledge deficits Problem:OT Learning Assessment Goal:Demonstrate understanding of education Completed Education methods include: verbal cues. Patient/Caregiver require further education to improve knowledge and compliance with fall prevention strategies, pain management, home safety and home exercise program. Therapeutic Exercises Problem:OT Upper Body Strength and/or ROM Goal:Improved Strength and/or ROM Completed Instructed patient/caregiver on therapeutic exercise hand helper with 10# resistance able to complete 7 reps instructed to complete 2-3 times daily. increasing reps to 20 as able. pt educated on pinch strengthening with pink sponge for tripod and pincer. coordination tasks for picking up and place of pill bottle with focus on pinch lift and release. pt complete 3 x 5 attempts with improvment with visual and spoken self cues. Instruct on self-management of post surgical and/or non-surgical neurologic intervention Problem:OT Neurologic Condition Goal:Manage Neurologic Condition Completed Instruct patient on neurological condition of CVA including monitoring and reporting symptoms of speech changes, mental status changes, weakness and impaired movement and instruct on neuromuscular re-education, tips for caregivers and when to call 911. [facility] Visit Details Visit Type -OT ROUTINE Discipline -Occupational Therapy Problems Problem Description Start Date Status Goals Interve ntions Physician Specific Parameters Disciplines: Skilled Services 03/10/2023 Active 1 goal linked to scheduled/document ed intervention 1 goal intervention scheduled/documente d in this visit OT Learning Assessment Disciplines: OT 03/16/2023 Active 1 goal linked to scheduled/document ed intervention 1 goal intervention scheduled/documente d in this visit OT Upper Body Strength and/or ROM Disciplines: OT 03/16/2023 Active 1 goal linked to scheduled/document ed intervention 1 goal intervention scheduled/documente d in this visit OT Neurologic Condition Disciplines: OT 03/16/2023 Active 1 goal linked to scheduled/document ed intervention 1 goal intervention scheduled/documente d in this visit Goals Goal Associated Problem Outcome Goal Met? Visit Notes Patient to maintain parameters within physician-specified ranges throughout certification period Physician Specific Parameters No Demonstrate understanding of education Description: Patient and/or caregiver will understand educational instruction to be achieved by 04/08/23. OT Learning Assessment No Improved Strength and/or ROM Description: patient will verbalize/demonstrate independence with home exercise program, to improve functional performance, to be achieved by 04/08/23. Patient will demonstrate improved right shoulder and elbow active range of motion to full arom, to be achieved by 04/08/23. OT Upper Body Strength and/or ROM No Manage Neurologic Condition Description: Improve patient and/or caregiver understanding of neurologic condition and management, as evidenced by patient and/or caregiver ability to verbalize, demonstrate, teach back of instruction at a minimum of two strategies. To be achieved by 04/08/23. OT Neurologic Condition No Interventions Intervention Associated Problem/Goal Status Variance Visit Notes SPO2 Description: Notify Tom Curiel APRN QUILT STUFFER if pulse ox is <92% at rest. Problem:Physician Specific Parameters Goal:Patient to maintain parameters within physician-specified ranges throughout certification period Completed Instruct and educate on knowledge deficits Problem:OT Learning Assessment Goal:Demonstrate understanding of education Completed Education methods include: verbal cues. Patient/Caregiver require further education to improve knowledge and compliance with fall prevention strategies, pain management, functional transfers and home exercise program. Therapeutic Exercises Problem:OT Upper Body Strength and/or ROM Goal:Improved Strength and/or ROM Completed Instructed patient/caregiver on therapeutic exercise including: upper body exercises: right shoulder flexion/extension, abduction/adduction, horizontal abduction/adduction, internal/external rotation, overhead and chest press, tricep press, elbow and wrist flexion/extension and forearm supination/pronation .Provided verbal, visual and written cues for proper technique. Patient performed 1 set (s) of 10 reps this date. with yellow theraband. pt needing cues for straightening right elbow with shoulder flex/abd and ches press (when extending). Increased hand helper to 15 pounds pt was able to complete 10 pounds with full grasp x 20 without difficulty. Introduced wall push ups for right ue wb neuro altaf. Instructed patient/caregiver for HEP to be performed 1 sets(s) of 10 reps, twice a day. and to continue to work on fine motor tasks with right hand HEP program reviewed. Instruct on self-management of post surgical and/or non-surgical neurologic intervention Problem:OT Neurologic Condition Goal:Manage Neurologic Condition Completed Instruct patient on neurological condition of CVA including monitoring and reporting symptoms of when to call 911 [facility] Visit Details Visit Type -SECTION CREWS ACTIVITIES CLERK DISC NEO NEGRO Discipline -Speech Language Pathology Problems Problem Description Start Date Status Goals Interve ntions SECTION [employer]WS ACTIVITIES CLERK Learning Assessment Disciplines: SECTION CREWS ACTIVITIES CLERK 03/13/2023 Resolved on 03/27/2023 1 goal linked to scheduled/documente d intervention SECTION CREWS ACTIVITIES CLERK Speech Production/Inte lligibility Disciplines: SECTION CREWS ACTIVITIES CLERK 03/13/2023 Resolved on 03/27/2023 2 goals linked to scheduled/documente d interventions Goals Goal Associated Problem Outcome Goal Met? Visit Notes Patient/Caregiver Demonstrates understanding of education Description: patient and caregiver will understand educational instruction, to be achieved by 04/03/23. SECTION CREWS ACTIVITIES CLERK Learning Assessment Completed Yes No follow up visit completed at patient/caregiver request. Improve Articulation and Intelligiblity Description: Patient will demonstrate improved production of sentences and conversation with appropriate articulator placement or use of compensatory strategies with no cues with/in 90% accuracy. To be achieved by 04/03/23. SECTION CREWS ACTIVITIES CLERK Speech Production/Intelligi bility Completed Yes No follow up visit completed at patient/caregiver request. Improve Speech Intelligibility Description: Patient will improve the production of the /l/ sound in sentences and conversation with/in 90% accuracy with no cues, to facilitate communication with others. To be achieved by 04/03/21. SECTION CREWS ACTIVITIES CLERK Speech Production/Intelligi bility Completed Yes No follow up visit completed at patient/caregiver request. [facility] Visit Details Visit Type -OT AGENCY DC W V ISIT Discipline -Occupational Therapy Problems Problem Description Start Date Status Goals Interve ntions Medication Education Disciplines: Skilled Services 03/10/2023 Resolved on 04/06/2023 1 goal linked to scheduled/documen farhad intervention 1 goal intervention scheduled/document ed in this visit Sepsis Disciplines: Skilled Services 03/10/2023 Resolved on 04/06/2023 1 goal linked to scheduled/documen farhad intervention 1 goal intervention scheduled/document ed in this visit Physician Specific Parameters Disciplines: Skilled Services 03/10/2023 Resolved on 04/06/2023 1 goal linked to scheduled/documen farhad intervention 1 goal intervention scheduled/document ed in this visit Risk for Falls Disciplines: Skilled Services 03/10/2023 Resolved on 04/06/2023 1 goal linked to scheduled/documen farhad intervention 1 goal intervention scheduled/document ed in this visit Pain Disciplines: Skilled Services 03/10/2023 Resolved on 04/06/2023 1 goal linked to scheduled/documen farhad intervention 1 goal intervention scheduled/document ed in this visit High Risk Medications Disciplines: Skilled Services 03/10/2023 Resolved on 04/06/2023 1 goal linked to scheduled/documen farhad intervention 1 goal intervention scheduled/document ed in this visit OT Learning Assessment Disciplines: OT 03/16/2023 Resolved on 04/06/2023 1 goal linked to scheduled/documen farhad intervention 1 goal intervention scheduled/document ed in this visit OT Upper Body Strength and/or ROM Disciplines: OT 03/16/2023 Resolved on 04/06/2023 1 goal linked to scheduled/documen farhad intervention 1 goal intervention scheduled/document ed in this visit OT Neurologic Condition Disciplines: OT 03/16/2023 Resolved on 04/06/2023 1 goal linked to scheduled/documen farhad intervention 1 goal intervention scheduled/document ed in this visit Goals Goal Associated Problem Outcome Goal Met? Visit Notes Patient/caregiver will demonstrate ability to obtain, store, identify and administer ordered medications, keep accurate medication list in home, and adhere to medication schedule Description: Patient/caregiver will demonstrate ability to obtain, store, identify and administer ordered medications, keep accurate medication list in home, and adhere to medication schedule by 05/08/23. Medication Education Completed Yes goal met Patient/caregiver will be able to identify and report symptoms of sepsis Description: Patient/caregiver will be able to identify signs/symptoms of sepsis infection and will verbalize actions to take if suspected by 05/08/23. Sepsis Completed Yes goal met Patient to maintain parameters within physician-specified ranges throughout certification period Physician Specific Parameters Completed Yes goal met Manage Risk for falls Description: Patient/caregiver will verbalize knowledge of individualized fall prevention strategies by 05/08/23. Risk for Falls Completed Yes goal met Manage Pain Description: Patient/caregiver will verbalize knowledge and understanding of appropriate techniques to control pain, including non-pharmacological techniques. Patient will verbalize or demonstrate an acceptable level of pain as evidenced by a pain score of 2/10 and improvement in ability to perform activities of daily living to be achieved by 05/08/23. Pain Completed Yes goal met Patient/caregiver will teach back high risk medication side effect and precaution education High Risk Medications Completed Yes goal met Demonstrate understanding of education Description: Patient and/or caregiver will understand educational instruction to be achieved by 04/08/23. OT Learning Assessment Completed Yes goal met Improved Strength and/or ROM Description: patient will verbalize/demonstrate independence with home exercise program, to improve functional performance, to be achieved by 04/08/23. Patient will demonstrate improved right shoulder and elbow active range of motion to full arom, to be achieved by 04/08/23. OT Upper Body Strength and/or ROM Completed Yes goal met Manage Neurologic Condition Description: Improve patient and/or caregiver understanding of neurologic condition and management, as evidenced by patient and/or caregiver ability to verbalize, demonstrate, teach back of instruction at a minimum of two strategies. To be achieved by 04/08/23. OT Neurologic Condition Completed Yes goal met Interventions Intervention Associated Problem/Goal Status Variance Visit Notes Medication Education Description: Evaluate/instruct patient/caregiver on obtaining, storing, identifying and administering ordered medications as well as keeping accurate medication list in the home and adhereing to medication schedule Problem:Medication Education Goal:Patient/caregive r will demonstrate ability to obtain, store, identify and administer ordered medications, keep accurate medication list in home, and adhere to medication schedule Completed Patient instructed on importance of keeping accurate medication list in home and adhering to medication schedule. Risk of Sepsis Description: Patient is at risk for sepsis. Monitor closely for s/s of sepsis. Problem:Sepsis Goal:Patient/caregive r will be able to identify and report symptoms of sepsis Completed SPO2 Description: Notify Tom Curiel APRN, CNP if pulse ox is <92% at rest. Problem:Physician Specific Parameters Goal:Patient to maintain parameters within physician-specified ranges throughout certification period Completed Instruct on individual fall risk factors and strategies to prevent falls and injuries caused by falls. Problem:Risk for Falls Goal:Manage Risk for falls Completed OT: Patient instructed on Managing Impaired Functional Mobility: Caregiver to provide assist with: transporation and present when ambulating on unlevel ground Instruct on pain and instruct on strategies to control pain Problem:Pain Goal:Manage Pain Completed patient instructed on techniques to control pain including Pharmacological measures and Non-Pharmacological measures; rest and positioning/elevation. Antiplatelet- educated on high risk medication Problem:High Risk Medications Goal:Patient/caregive r will teach back high risk medication side effect and precaution education Completed patient educated on taking medication(s) as prescribed by provider. Do not stop medication or alter doses without speaking with your provider. Discuss medication effectiveness or side effect concerns with your provider and home care team. Discuss all medications you are taking, even xlvg-uyo-wlzgjoa medicines, with your provider and pharmacist since many drugs can interact with antiplatelet medications. If you forget to take a dose, DO NOT take a double dose. Take the missed dose as soon as possible on the same day. DO NOT take a double dose the next day to make up for the missed dose. Watch for signs of abnormal or excessive bleeding and bruising (refer to Bleeding Precautions education). Call your health care provider right away if you suspect something is wrong. Instruct and educate on knowledge deficits Problem:OT Learning Assessment Goal:Demonstrate understanding of education Completed Education methods include: verbal cues. Patient/Caregiver require further education to improve knowledge and compliance with fall prevention strategies, neurological condition management, pain management, home safety, functional adl/iadl activity, functional transfers and home exercise program. Therapeutic Exercises Problem:OT Upper Body Strength and/or ROM Goal:Improved Strength and/or ROM Completed Instructed patient/caregiver on therapeutic exercise including: upper body exercises: shoulder flexion/extension, abduction/adduction, horizontal abduction/adduction, internal/external rotation, overhead and chest press, tricep press, elbow and wrist flexion/extension and forearm supination/pronation .Provided verbal cues for proper technique. Patient using yelloow Instructed patient/caregiver for HEP to be performed 1 sets(s) of 12 reps, twice a day. pt using yellow band also provided with red band to advance on own. pt continues to complete hand gripper with right hand and 15 pound/pressure HEP program reviewed. Instruct on self-management of post surgical and/or non-surgical neurologic intervention Problem:OT Neurologic Condition Goal:Manage Neurologic Condition Completed Instruct patient on neurological condition of CVA including monitoring and reporting symptoms of elevated blood pressure, headaches, swallowing difficulty, aspiration, speech changes, mental status changes, vision changes and weakness and instruct on when to call provider and when to call 911. [facility] Visit Details Visit Type -PT DISC DC W VIS IT Discipline -Physical Therapy Problems Problem Description Start Date Status Goals Interve ntions Medication Education Disciplines: Skilled Services 03/10/2023 Resolved on 04/06/2023 1 goal linked to scheduled/document ed intervention 1 goal intervention scheduled/document ed in this visit Sepsis Disciplines: Skilled Services 03/10/2023 Resolved on 04/06/2023 1 goal linked to scheduled/document ed intervention 1 goal intervention scheduled/document ed in this visit Physician Specific Parameters Disciplines: Skilled Services 03/10/2023 Resolved on 04/06/2023 1 goal linked to scheduled/document ed intervention 1 goal intervention scheduled/document ed in this visit Risk for Falls Disciplines: Skilled Services 03/10/2023 Resolved on 04/06/2023 1 goal linked to scheduled/document ed intervention 1 goal intervention scheduled/document ed in this visit Pain Disciplines: Skilled Services 03/10/2023 Resolved on 04/06/2023 1 goal linked to scheduled/document ed intervention 1 goal intervention scheduled/document ed in this visit PT Impaired Aerobic Capacity Disciplines: PT 03/14/2023 Resolved on 04/06/2023 1 goal linked to scheduled/document ed intervention 1 goal intervention scheduled/document ed in this visit PT Impaired muscle performance and/or ROM Disciplines: PT 03/14/2023 Resolved on 04/06/2023 1 goal linked to scheduled/document ed intervention 1 goal intervention scheduled/document ed in this visit PT Impaired mobility Disciplines: PT 03/14/2023 Resolved on 04/06/2023 2 goals linked to scheduled/document ed interventions 2 goal interventions scheduled/document ed in this visit PT Impaired gait Disciplines: PT 03/14/2023 Resolved on 04/06/2023 2 goals linked to scheduled/document ed interventions 2 goal interventions scheduled/document ed in this visit PT Impaired balance Disciplines: PT 03/14/2023 Resolved on 04/06/2023 1 goal linked to scheduled/document ed intervention 1 goal intervention scheduled/document ed in this visit PT Neurologic Condition Disciplines: PT 03/14/2023 Resolved on 04/06/2023 1 goal linked to scheduled/document ed intervention 1 goal intervention scheduled/document ed in this visit PT Learning Assessment Disciplines: PT 03/14/2023 Resolved on 04/06/2023 1 goal linked to scheduled/document ed intervention 1 goal intervention scheduled/document ed in this visit Goals Goal Associated Problem Outcome Goal Met? Visit Notes Patient/caregiver will demonstrate ability to obtain, store, identify and administer ordered medications, keep accurate medication list in home, and adhere to medication schedule Description: Patient/caregiver will demonstrate ability to obtain, store, identify and administer ordered medications, keep accurate medication list in home, and adhere to medication schedule by 05/08/23. Medication Education No Patient/caregiver will be able to identify and report symptoms of sepsis Description: Patient/caregiver will be able to identify signs/symptoms of sepsis infection and will verbalize actions to take if suspected by 05/08/23. Sepsis No Patient to maintain parameters within physician-specified ranges throughout certification period Physician Specific Parameters No Manage Risk for falls Description: Patient/caregiver will verbalize knowledge of individualized fall prevention strategies by 05/08/23. Risk for Falls No Manage Pain Description: Patient/caregiver will verbalize knowledge and understanding of appropriate techniques to control pain, including non-pharmacological techniques. Patient will verbalize or demonstrate an acceptable level of pain as evidenced by a pain score of 2/10 and improvement in ability to perform activities of daily living to be achieved by 05/08/23. Pain No Improved Aerobic Capacity Description: LTG: Patient will demonstrate improved aerobic capacity to meet functional goals as evidenced by Rate of Percieved Exertion (RPE) of 0-2/10 during standing activity, to be achieved by 04/08/23. PT Impaired Aerobic Capacity Completed Yes Goal Met Improved Muscle Performance and/or ROM Description: LTG: Patient will demonstrate improved muscle performance to meet functional goals as evidenced by ability to tolerate 8 mins of standing activity, to be achieved by 04/08/23. LTG: Patient and/or caregiver will verbalize/demonstrate independence with home exercise program, to improve functional mobility, to be achieved by 04/08/23. PT Impaired muscle performance and/or ROM Completed Yes Goal Met Improved Transfers Description: LTG: Patient will demonstrate safe transfers to/from bed, chair and toilet independently, to be achieved by 04/08/23. PT Impaired mobility Completed Yes Goal Met Improved Bed Mobility Description: STG: Patient will demonstrate improved ability to position self independently to be achieved by 05/02/23. PT Impaired mobility Completed Yes Goal Met Improved Stair Climbing Description: LTG: Patient will demonstrate improved stair negotiation as evidenced by ascend/descend 14 steps with railing independently, to safely exit home, to be achieved by 04/08/23. PT Impaired gait Completed Yes Goal Met Improved Gait Description: LTG: Patient will demonstrate improved gait ability as evidenced by ambulation 200 feet with no device independently, to return to safe household ambulation, in order to reach car in the driveway, to be achieved by 04/08/23. PT Impaired gait Completed Yes Goal Met Improved Balance Description: LTG: Patient will demonstrate improved standing balance to meet functional goals as evidenced by ambulation with out ad with no lob for 200 feet to be achieved by 04/08/23. PT Impaired balance Completed Yes Goal Met Manage Neurologic Condition Description: Improve patient and/or caregiver understanding of post surgical and/or non-surgical neurologic intervention management as evidenced by patient and/or caregiver able to verbalize, demonstrate, and teach back instruction, to be achieved by 04/08/23. PT Neurologic Condition Completed Yes Goal Met Demonstrate understanding of education Description: Patient and/or caregiver will understand educational instruction to be achieved by 04/08/23. PT Learning Assessment Completed Yes Goal Met Interventions Intervention Associated Problem/Goal Status Variance Visit Notes Medication Education Description: Evaluate/instruct patient/caregiver on obtaining, storing, identifying and administering ordered medications as well as keeping accurate medication list in the home and adhereing to medication schedule Problem:Medication Education Goal:Patient/caregive r will demonstrate ability to obtain, store, identify and administer ordered medications, keep accurate medication list in home, and adhere to medication schedule Completed Patient instructed on adhering to medication schedule. Risk of Sepsis Description: Patient is at risk for sepsis. Monitor closely for s/s of sepsis. Problem:Sepsis Goal:Patient/caregive r will be able to identify and report symptoms of sepsis Completed SPO2 Description: Notify Tom Curiel APRN, CNP if pulse ox is <92% at rest. Problem:Physician Specific Parameters Goal:Patient to maintain parameters within physician-specified ranges throughout certification period Completed Instruct on individual fall risk factors and strategies to prevent falls and injuries caused by falls. Problem:Risk for Falls Goal:Manage Risk for falls Completed PT: Patient instructed on Managing Pain Instruct on pain and instruct on strategies to control pain Problem:Pain Goal:Manage Pain Completed patient instructed on techniques to control pain including Non-Pharmacological measures; rest, positioning/elevation and mobility/therapeutic exercise. Physical Therapy Aerobic Capacity Training Problem:PT Impaired Aerobic Capacity Goal:Improved Aerobic Capacity Completed patient instructed on utilization of the Rate of Percieved Exertion (RPE) scale, to not exceed 3-6/10 indicating moderate to heavy intensity of activity. Developed, implemented, and instructed patient on physical therapy interventions completing 10 minutes of paced activity. Physical Therapy Therapeutic Exercises Problem:PT Impaired muscle performance and/or ROM Goal:Improved Muscle Performance and/or ROM Completed patient instructed on strengthening and range of motion exercises including standing marching, hip abd, hip ext, knee flexion, toe raises, side stepping with verbal cues for sequence. patient instructed to perform home exercise program twice a day Physical Therapy Transfer Training Problem:PT Impaired mobility Goal:Improved Transfers Completed Transfer training and instruction to patient on safe transfers to and from bed, chair and toilet with independent Physical Therapy Bed Mobility Training Problem:PT Impaired mobility Goal:Improved Bed Mobility Completed Bed mobility training and instruction to patient, including rolling, supine<>sit and repositioning self with supervision and verbal cues for sequence. Physical Therapy Stair Training Problem:PT Impaired gait Goal:Improved Stair Climbing Completed Stair training and instruction to patient on safe stair climbing, ascend/descend 14 steps, with railing with independent Physical Therapy Gait Training Problem:PT Impaired gait Goal:Improved Gait Completed Gait training and instruction to patient on safe ambulation with no device for 500 feet with independent Physical Therapy Balance Training Problem:PT Impaired balance Goal:Improved Balance Completed Developed, implemented, and instructed patient on standing balance exercises including ambulation without ad. Instruct on self-management of post surgical and/or non-surgical neurologic intervention Problem:PT Neurologic Condition Goal:Manage Neurologic Condition Completed patient instructed on definition of neurologic disease. Instruct and educate on knowledge deficits Problem:PT Learning Assessment Goal:Demonstrate understanding of education Completed patient verbalize and/or demonstrate understanding of physical therapy education including fall prevention strategies, home safety, functional activity and home exercise program. Education methods include: verbal cues. Further education required to improve knowledge and compliance with fall prevention strategies, home safety, functional activity and home exercise program. documented in this encounter [facility] Advance Directives No Advanced Directives Records FoundLatest Code Status on File Code Status Date Activated Date Inactivated Comments Full Code 03/05/2023 5:14 PM 03/06/2023 10:32 PM Full Code Order Discussed With: Patient Latest Code Status on File Code Status Date Activated Date Inactivated Comments Full Code 03/11/2023 11:50 AM Code Status History Code Status Date Activated Date Inactivated Comments Full Code 03/05/2023 5:14 PM 03/06/2023 10:32 PM Question Answer Comments Full Code Order Discussed With: Patient Latest Code Status on File Code Status Date Activated Date Inactivated Comments Full Code 03/11/2023 11:50 AM Code Status History Code Status Date Activated Date Inactivated Comments Full Code 03/05/2023 5:14 PM 03/06/2023 10:32 PM Question Answer Comments Full Code Order Discussed With: Patient Summary Purpose Family History No Family History Records Found Relationship Condition Age at Onset Recorded Date/T gonsalo Not Specified Diabetes mellitus Unknown High blood cholesterol Unknown Hypertension Unknown Chief Complaint and Reason for Visit Chief Complaint medication refills Reason for Visit CVA (cerebral vascul ar accident) Hypertriglyceridemia Hypertension Reason for Referral Specialty Diagnoses / Procedures Referred By Contac t Referred To Contact Occupational Therapy Diagnoses 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) Procedures CONSULT TO CLOTH FRAMER Reny Matos APRN.[facility] [address] [place] [address] Referral ID Status Reason Start Date Expiration Date Visits Requested Visits Authorized [id number] Ref Not Required PCP Requested Referral 04/14/2023 04/13/2024 1 1 Additional Source Comments Source Comments (unrecognize d section and content) In the event this informatio n is protected by the Federal Confidentiality of Alcohol and Drug Abuse Patient Records regulations: The Federal rules restrict any use of the information to criminally investigate or prosecute any alcohol or drug abuse patient.[facility] the event this information is protected by the Federal Confidentiality of Alcohol and Drug Abuse Patient Records regulations: The Federal rules restrict any use of the information to criminally investigate or prosecute any alcohol or drug abuse patient.[facility] HospitalIn the event this information is protected by the Federal Confidentiality of Alcohol and Drug Abuse Patient Records regulations: The Federal rules restrict any use of the information to criminally investigate or prosecute any alcohol or drug abuse patient.[facility] HospitalIn the event this information is protected by the Federal Confidentiality of Alcohol and Drug Abuse Patient Records regulations: The Federal rules restrict any use of the information to criminally investigate or prosecute any alcohol or drug abuse patient.[facility] HospitalIn the event this information is protected by the Federal Confidentiality of Alcohol and Drug Abuse Patient Records regulations: The Federal rules restrict any use of the information to criminally investigate or prosecute any alcohol or drug abuse patient.[facility] HospitalIn the event this information is protected by the Federal Confidentiality of Alcohol and Drug Abuse Patient Records regulations: The Federal rules restrict any use of the information to criminally investigate or prosecute any alcohol or drug abuse patient.[facility] HospitalIn the event this information is protected by the Federal Confidentiality of Alcohol and Drug Abuse Patient Records regulations: The Federal rules restrict any use of the information to criminally investigate or prosecute any alcohol or drug abuse patient.[facility] HospitalIn the event this information is protected by the Federal Confidentiality of Alcohol and Drug Abuse Patient Records regulations: The Federal rules restrict any use of the information to criminally investigate or prosecute any alcohol or drug abuse patient.[facility] HospitalIn the event this information is protected by the Federal Confidentiality of Alcohol and Drug Abuse Patient Records regulations: The Federal rules restrict any use of the information to criminally investigate or prosecute any alcohol or drug abuse patient.[facility] HospitalIn the event this information is protected by the Federal Confidentiality of Alcohol and Drug Abuse Patient Records regulations: The Federal rules restrict any use of the information to criminally investigate or prosecute any alcohol or drug abuse patient.[facility] HospitalIn the event this information is protected by the Federal Confidentiality of Alcohol and Drug Abuse Patient Records regulations: The Federal rules restrict any use of the information to criminally investigate or prosecute any alcohol or drug abuse patient.[facility] HospitalIn the event this information is protected by the Federal Confidentiality of Alcohol and Drug Abuse Patient Records regulations: The Federal rules restrict any use of the information to criminally investigate or prosecute any alcohol or drug abuse patient.[facility] HospitalIn the event this information is protected by the Federal Confidentiality of Alcohol and Drug Abuse Patient Records regulations: The Federal rules restrict any use of the information to criminally investigate or prosecute any alcohol or drug abuse patient.[facility] HospitalIn the event this information is protected by the Federal Confidentiality of Alcohol and Drug Abuse Patient Records regulations: The Federal rules restrict any use of the information to criminally investigate or prosecute any alcohol or drug abuse patient.[facility] HospitalIn the event this information is protected by the Federal Confidentiality of Alcohol and Drug Abuse Patient Records regulations: The Federal rules restrict any use of the information to criminally investigate or prosecute any alcohol or drug abuse patient.[facility] HospitalIn the event this information is protected by the Federal Confidentiality of Alcohol and Drug Abuse Patient Records regulations: The Federal rules restrict any use of the information to criminally investigate or prosecute any alcohol or drug abuse patient.[facility] HospitalIn the event this information is protected by the Federal Confidentiality of Alcohol and Drug Abuse Patient Records regulations: The Federal rules restrict any use of the information to criminally investigate or prosecute any alcohol or drug abuse patient.[facility] HospitalIn the event this information is protected by the Federal Confidentiality of Alcohol and Drug Abuse Patient Records regulations: The Federal rules restrict any use of the information to criminally investigate or prosecute any alcohol or drug abuse patient.[facility] HospitalIn the event this information is protected by the Federal Confidentiality of Alcohol and Drug Abuse Patient Records regulations: The Federal rules restrict any use of the information to criminally investigate or prosecute any alcohol or drug abuse patient.[facility] Reason for Visit (unrecogniz ed section and content) Reason Comments Home Care CONFIRMATION CALL Reason Comments Patient Update SN unmade visit toda y Reason Comments Home Care Specialty Diagnoses / Procedures Referred By Contac t Referred To Contact [facility] Home Care [address] [place] [address] Referral ID Status Reason Start Date Expiration Date Visits Re quested Visits Authorized [id number] 1 1 Reason Comments Hospital Discharge Specialty Diagnoses / Procedures Referred By Contact Referred To Contact Cerebrovascular / CEREBROVASCULAR Diagnoses Hospital Follow Up - Stroke Procedures HOSPITAL DISCHARGE Carolyn Chen, WEDDING COORDINATOR.QUILT STUFFER [address] [place] [address] Reny Matos, WEDDING COORDINATOR.QUILT STUFFER [address] [address] Referral ID Status Reason Start Date Expiration Date V isits Requested Visits Authorized [id number] Pending Review 04/14/2023 07/13/2023 1 1 Reason Comments Symptoms Care Teams (unrecognized sec tion and content) Batch Or Continuous Still Operator Relationship Specialty Start Date End Date Marianne Curiel, WEDDING COORDINATOR.QUILT STUFFER [address] [place] [address] PCP - General Family Medicine 03/05/23 Lissa Mirza DO [address] [place] [address] Referring Internal Medicine 03/06/23 Batch Or Continuous Still Operator Relationship Specialty Start Date End Date Marianne Curiel, WEDDING COORDINATOR.QUILT STUFFER [address] [place] [address] PCP - General Family Medicine 03/05/23 Lissa Mirza DO [address] [place] [address] Referring Internal Medicine 03/06/23 Marianne Curiel, WEDDING COORDINATOR.QUILT STUFFER [address] [place] [address] Home Care Provider Family Medicine 03/09/23 Victoria Piedra, RN [address] [place] [address] Child Nurse Post Acute Care 03/09/23 Batch Or Continuous Still Operator Relationship Specialty Start Date End Date Marianne Curiel, WEDDING COORDINATOR.QUILT STUFFER [address] [place], [place] [id number] PCP - General Family Medicine 03/05/23 Lissa Mirza DO [address] [place] [address] Referring Internal Medicine 03/06/23 Marianne Curiel, WEDDING COORDINATOR.QUILT STUFFER [address] [place] [address] Home Care Provider Family Medicine 03/09/23 Victoria Piedra RN [address] [place], [place] [id number] Child Nurse Post Acute Care 03/09/23 Batch Or Continuous Still Operator Relationship Specialty Start Date End Date Marianne Curiel, WEDDING COORDINATOR.QUILT STUFFER [address] [place] [address] PCP - General Family Medicine 03/05/23 Lissa Mirza DO [address] [place] [address] Referring Internal Medicine 03/06/23 Marianne Curiel, WEDDING COORDINATOR.QUILT STUFFER [address] [place] [address] Home Care Provider Family Medicine 03/09/23 Victoria Piedra RN [address] [place], [place] [id number] Child Nurse Post Acute Care 03/09/23 Batch Or Continuous Still Operator Relationship Specialty Start Date End Date Marianne Curiel, WEDDING COORDINATOR.QUILT STUFFER [address] [place] [address] PCP - General Family Medicine 03/05/23 Lissa Mirza DO [address] [place] [address] Referring Internal Medicine 03/06/23 Marianne Curiel, WEDDING COORDINATOR.QUILT STUFFER [address] [place] [address] Home Care Provider Family Medicine 03/09/23 Victoria Piedra, LIZ [address] [place] [address] Child Nurse Post Acute Care 03/09/23 Batch Or Continuous Still Operator Relationship Specialty Start Date End Date Marianne Curiel, WEDDING COORDINATOR.QUILT STUFFER [address] [place] [address] PCP - General Family Medicine 03/05/23 Lissa Mirza DO [address] [place] [address] Referring Internal Medicine 03/06/23 Marianne Curiel, WEDDING COORDINATOR.QUILT STUFFER [address] [place] [address] Home Care Provider Family Medicine 03/09/23 Victoria Piedra RN [address] [place] [address] Child Nurse Post Acute Care 03/09/23 Batch Or Continuous Still Operator Relationship Specialty Start Date End Date Marianne Curiel, WEDDING COORDINATOR.QUILT STUFFER [address] [place] [address] PCP - General Family Medicine 03/05/23 Lissa Mirza DO [address] [place] [address] Referring Internal Medicine 03/06/23 Marianne Curiel, WEDDING COORDINATOR.QUILT STUFFER [address] [place], [place] [address] Home Care Provider Family Medicine 03/09/23 Victoria Piedra, LIZ [address] [place] [address] Child Nurse Post Acute Care 03/09/23 Batch Or Continuous Still Operator Relationship Specialty Start Date End Date Marianne Curiel, WEDDING COORDINATOR.QUILT STUFFER [address] [place] [address] PCP - General Family Medicine 03/05/23 Lissa Mirza DO [address] [place], [place] [id number] Referring Internal Medicine 03/06/23 Marianne Curiel, WEDDING COORDINATOR.QUILT STUFFER [address] [place] [address] Home Care Provider Family Medicine 03/09/23 Victoria Piedra RN [address] [place] [address] Child Nurse Post Acute Care 03/09/23 Batch Or Continuous Still Operator Relationship Specialty Start Date End Date Marianne Curiel, WEDDING COORDINATOR.QUILT STUFFER [address] [place] [address] PCP - General Family Medicine 03/05/23 Lissa Mirza DO [address] [place] [address] Referring Internal Medicine 03/06/23 Marianne Curiel, WEDDING COORDINATOR.QUILT STUFFER [address] [place], [place] [id number] Home Care Provider Family Medicine 03/09/23 Ellis Welch, PT [address] [place] [address] Child Nurse Physical Therapy 03/20/23 Batch Or Continuous Still Operator Relationship Specialty Start Date End Date Marianne Curiel, WEDDING COORDINATOR.QUILT STUFFER [address] [place] [address] PCP - General Family Medicine 03/05/23 Lissa Mirza DO [address] [place] [address] Referring Internal Medicine 03/06/23 Marianne Curiel, WEDDING COORDINATOR.QUILT STUFFER [address] [place] [address] Home Care Provider Family Medicine 03/09/23 Ellis Welch, PT [address] [facility], [place] [id number] Child Nurse Physical Therapy 03/20/23 Batch Or Continuous Still Operator Relationship Specialty Start Date End Date Marianne Curiel, WEDDING COORDINATOR.QUILT STUFFER [address] [place] [address] PCP - General Family Medicine 03/05/23 Lissa Mirza DO [address] [place] [address] Referring Internal Medicine 03/06/23 Marianne Curiel, WEDDING COORDINATOR.QUILT STUFFER [address] [place] [address] Home Care Provider Family Medicine 03/09/23 Ellis Welch, PT [address] [place] [address] Child Nurse Physical Therapy 03/20/23 Batch Or Continuous Still Operator Relationship Specialty Start Date End Date Marianne Curiel, WEDDING COORDINATOR.QUILT STUFFER [address] [place] [address] PCP - General Family Medicine 03/05/23 Lissa Mirza DO [address] [place] [address] Referring Internal Medicine 03/06/23 Marianne Curiel, WEDDING COORDINATOR.QUILT STUFFER [address] [place] [address] Home Care Provider Family Medicine 03/09/23 Ellis Welch, PT [address] [place] [address] Child Nurse Physical Therapy 03/20/23 Batch Or Continuous Still Operator Relationship Specialty Start Date End Date Marianne Curiel, WEDDING COORDINATOR.QUILT STUFFER [address] [place] [address] PCP - General Family Medicine 03/05/23 Lissa Mirza DO [address] [place] [address] Referring Internal Medicine 03/06/23 Marianne Curiel, WEDDING COORDINATOR.QUILT STUFFER [address] [facility] [place] [address] Home Care Provider Family Medicine 03/09/23 Ellis Welch, PT [address] [place] [address] Child Nurse Physical Therapy 03/20/23 Batch Or Continuous Still Operator Relationship Specialty Start Date End Date Marianne Curiel, WEDDING COORDINATOR.QUILT STUFFER [address] [place] [address] PCP - General Family Medicine 03/05/23 Lissa Mirza DO [address] [place] [address] Referring Internal Medicine 03/06/23 Marianne Curiel, WEDDING COORDINATOR.QUILT STUFFER [address] [place] [address] Home Care Provider Family Medicine 03/09/23 Ellis Welch, PT [address] [place], [place] [phone] Child Nurse Physical Therapy 03/20/23 Batch Or Continuous Still Operator Relationship Specialty Start Date End Date Marianne Curiel, WEDDING COORDINATOR.QUILT STUFFER [address] [place] [address] PCP - General Family Medicine 03/05/23 Lissa Mirza DO [address] [place] [address] Referring Internal Medicine 03/06/23 Marianne Curiel, WEDDING COORDINATOR.QUILT STUFFER [address] [place] [address] Home Care Provider Family Medicine 03/09/23 Ellis Welch, PT [address] [place], [place] [phone] Child Nurse Physical Therapy 03/20/23 Batch Or Continuous Still Operator Relationship Specialty Start Date End Date Marianne Curiel, WEDDING COORDINATOR.QUILT STUFFER [address] [place] [address] PCP - General Family Medicine 03/05/23 Lissa Mirza DO [address] [place] [address] Referring Internal Medicine 03/06/23 Marianne Curiel, WEDDING COORDINATOR.QUILT STUFFER [address] [place] [address] Home Care Provider Family Medicine 03/09/23 Ellis Welch, PT [address] [place] [address] Child Nurse Physical Therapy 03/20/23 Team Status: Active Member Role Status Dates Marianne Curiel INTEGRITY MANAGER, INTEGRITY MANAGER-C Primary Care Provider Active Team Status: Inactive Member Role Status Dates Marianne Curiel INTEGRITY MANAGER, INTEGRITY MANAGER-C Primary Care Pr ovider, Attending Provider, Referring Provider Active Team Status: Inactive Member Role Status Dates Marianne Curiel INTEGRITY MANAGER, INTEGRITY MANAGER-C Primary Care Provider, Attend ing Provider Active Batch Or Continuous Still Operator Relationship Specialty Start Date End Date Marianne Curiel, WEDDING COORDINATOR.QUILT STUFFER [address] [place] [address] PCP - General Family Medicine 03/05/23 Lissa Mirza DO [address] [place] [address] Referring Internal Medicine 03/06/23 Marianne Curiel, WEDDING COORDINATOR.QUILT STUFFER [address] [place] [address] Home Care Provider Family Medicine 03/09/23 Ellis Welch, PT [address] [place] [address] Child Nurse Physical Therapy 03/20/23 Batch Or Continuous Still Operator Relationship Specialty Start Date End Date Marianne Curiel, WEDDING COORDINATOR.QUILT STUFFER [address] [place] [address] PCP - General Family Medicine 03/05/23 Lissa Mirza DO [address] [place] [address] Referring Internal Medicine 03/06/23 Marianne Curiel APRN.CNP [address] [facility] [address] [place] [address] Home Care Provider Family Medicine 03/09/23 Ellis Welch, PT [address] [place] [address] Child Nurse Physical Therapy 03/20/23 Batch Or Continuous Still Operator Relationship Specialty Start Date End Date Marianne Curiel [address] [place] [address] PCP - General Nurse Practitioner 06/26/23 Batch Or Continuous Still Operator Relationship Specialty Start Date End Date Marianne Curiel [address] [place] [address] PCP - General Nurse Practitioner 06/26/23 (unrecognized sect ion and content) No Status Records FoundNo Status Records FoundNo Status Records FoundNo Status Records FoundNo Status Records FoundNo Status Records Found INFORMATION SOURCE (unrecogn ized section and content) DATE CREATED AUTHOR 03/16/2023 [facility] DATE CREATED AUTHOR AUTHOR'S ORGANIZ ATION 04/20/2023 [facility] DATE CREATED AUTHOR AUTHOR'S ORGANIZ ATION 05/12/2023 [facility] DATE CREATED AUTHOR AUTHOR'S ORGANIZ ATION 06/27/2023 [facility] DATE CREATED AUTHOR AUTHOR'S ORGANIZ ATION 05/27/2024 [facility] DATE CREATED AUTHOR AUTHOR'S ORGANIZ ATION 06/28/2024 [facility] Goals (unrecognized section and content) Goals may be documented in a n alternate section FOR RECORDS PERTAINING TO PATIENTS WHO ARE OR HAVE BEEN ENROLLED IN A CHEMICAL DEPENDENCY/SUBSTANCEABUSE PROGRAM, SOME INFORMATION MAY BE OMITTED. This clinical summary was aggregated from multiple sources. Caution should be exercised in using it in the provision of clinical care. This summary normalizes information from multiple sources, and as a consequence, information in this document may materially change the coding, format and clinical context of patient data. In addition, data may be omitted in some cases. CLINICAL DECISIONS SHOULD BE BASED ON THE PRIMARY CLINICAL RECORDS. [facility] provides no warranty or guarantee of the accuracy or completeness of information in this document.
[2025-05-21 22:14] LABS: Hematocrit 44.4 % (40-54); Hemoglobin 15.0 g/dL (13.0-16.5); Immature Granulocytes Count 0.020 X10^3/uL (0.0-0.0); Mean Corp Hgb Conc 33.8 g/dL (32-36); Mean Corpuscular Volume 88.1 fL (80-94); Mean Platelet Vol. 10.1 fl (6.2-12.0); NRBC Flagged by Analyzer 0 % (0-5); Platelet Count 424 K/mm3 (150-450); RBC Distribution Width CV 12.2 % (11.6-14.6); RBC Distribution Width SD 39.4 fl (35.1-43.9); Red Blood Count 5.04 M/mm3 (4.6-6.2); White Blood Count 9.6 K/mm3 (4.4-11.0)
[2025-05-21 22:39] LABS: AST(SGOT) 27 U/L (<=37); Alanine Aminotransfer ALT/SGPT 28 U/L (<=46); Albumin, Serum 4.8 g/dL (3.5-5.0); Alkaline Phosphatase 50 U/L (40-129); Anion Gap 13 (5-15); BUN 12 mg/dL (4-19); BUN/Creat Ratio 10.3 RATIO (10-20); Calcium,Total 9.9 mg/dL (7.6-11.0); Carbon Dioxide 24.4 mmol/L (21.0-32.0); Chloride 102 mmol/L (98-108); Cholesterol 191 mg/dL (<=200); Globulin 2.7 g/dL (2.2-4.2); Glucose 95 mg/dL (70-99); Low Density Lipoprotein Calc. 119 mg/dL; PSA,Total- Diagnostic 1.15 ng/mL (0.00-4.00); Potassium 4.2 mmol/L (3.3-5.1); Triglycerides 168 mg/dL; Very Low Density Lipoprotein 34 mg/dL (5-40); cholesterol:hdl ratio screen 4.96
[2025-05-26 13:08] LABS: Vitamin D 1,25-Dihydroxy 26.9 pg/mL (24.8-81.5)
== END | disposition home or self-care (01) ==
PROVIDERS: PCP Nurse Practitioner; Visit Provider Nurse Practitioner
DX: I10 Essential (primary) hypertension (principal); E78.1 Pure hyperglyceridemia; E55.9 Vitamin D deficiency, unspecified; Z12.5 Encounter for screening for malignant neoplasm of prostate
CPT/HCPCS: 80053; 80061; 82652; 84153; 85025